=== PATIENT | female | born 1955 | race Caucasian/White ===

== ENCOUNTER 2017-07-07 08:38 | Emergency (ER) | payer BC ==
[2017-07-07 08:49] VITALS: BP 146/85
--- NOTE | 2017-07-07 10:02 | RAD ---
INDICATION: Left knee injury. TECHNIQUE: 4 views of the left knee were obtained. FINDINGS: The bones are in normal alignment. No joint effusion or acute fracture is seen. There is ossification in the medial collateral ligament consistent with prior medial collateral ligament injury. There is mild osteoarthritic change present. IMPRESSION: 1. NO EVIDENCE FOR ACUTE FRACTURE. 2. OSSIFICATION IN THE MEDIAL COLLATERAL LIGAMENT CONSISTENT WITH CHRONIC MEDIAL COLLATERAL LIGAMENT INJURY. 3. MILD OSTEOARTHRITIC CHANGE.
--- NOTE | 2017-07-07 10:49 | UC ---
Knee Pain HPI - HPI Summary HPI Summary: STEPPING OFF STAIR YESTERDAY. TWISTED LEFT KNEE. PAIN AND INSTABILITY WITH WEIGHT BEARING. HISTORY OF LEFT KNEE ARTHROSCOPY 12 YEARS AGO - History of Current Complaint Chief Complaint: UCLowerExtremity Stated Complaint: KNEE INJURY Time Seen by Provider: 07/07/17 08:56 Hx Obtained From: Patient ?: Yes Onset/Duration: Sudden Onset, Lasting Days, Still Present Severity Initially: Moderate Severity Currently: Moderate Pain Intensity: 0 Pain Scale Used: 0-10 Numeric Aggravating Factor(s): Movement, Weight Bearing, Prolonged Standing, Stairs Alleviating Factor(s): Rest, Position Associated Signs And Symptoms: Positive: Swelling Able to Bear Weight: No - Risk Factors Septic Arthritis Risk Factor: Negative Gout Risk Factor: Negative - Allergies/Home Medications Allergies/Adverse Reactions: Allergies Allergy/AdvReac Type Severity Reaction Status Date / Time Penicillins Allergy Severe Hives Verified 07/07/17 08:43 Home Medications: Home Medications Atorvastatin* [Lipitor*] 20 mg PO 2100 07/07/17 [History Confirmed 07/07/17] PMH/Surg Hx/FS Hx/Imm Hx Previously Healthy: Yes - Surgical History Surgical History: Yes Surgery Procedure, Year, and Place: appendics, right ovary and tube, ureter recontruction right - Family History Known Family History: Positive: Other - ARTHRITIS - Social History Occupation: Employed Full-time Lives: With Family Alcohol Use: None Substance Use Type: None Smoking Status (MU): Light Every Day Tobacco Smoker Review of Systems Constitutional: Negative Skin: Negative Eyes: Negative ENT: Negative Respiratory: Negative Cardiovascular: Negative Gastrointestinal: Negative Genitourinary: Negative Motor: Negative Neurovascular: Negative Musculoskeletal: Arthralgia - LEFT KNEE, Myalgia Neurological: Negative Psychological: Negative All Other Systems Reviewed And Are Negative: Yes Physical Exam Triage Information Reviewed: Yes Appearance: Well-Appearing, No Pain Distress, Well-Nourished Vital Signs: Initial Vital Signs Temp 98 F 07/07/17 08:45 Pulse 80 07/07/17 08:45 Resp 16 07/07/17 08:45 BP 146/85 07/07/17 08:45 Pulse Ox 100 07/07/17 08:45 Vital Signs Reviewed: Yes Eye Exam: Normal ENT Exam: Normal ENT: Positive: Normal ENT inspection, TMs normal Dental Exam: Normal Neck exam: Normal Respiratory Exam: Normal Respiratory: Positive: Chest non-tender, Lungs clear, Normal breath sounds, No respiratory distress, No accessory muscle use Cardiovascular Exam: Normal Cardiovascular: Positive: RRR, No Murmur, Pulses Normal, Brisk Capillary Refill Abdominal Exam: Normal Abdomen Description: Positive: Nontender, No Organomegaly Musculoskeletal: Positive: Strength Limited @ - LEFT KNEE, ROM Limited @ - LEFT KNEE, Edema @ - LEFT KNEE Neurological Exam: Normal Psychological Exam: Normal Skin Exam: Normal Knee Pain Course/Dx - Differential Dx/Diagnosis Differential Diagnosis/HQI/PQRI: Internal Derangement Of Knee, Sprain, Strain Provider Diagnoses: LEFT KNEE ARTHRITIS, OSSIFICATION OF MEDIAL COLLATERAL LIGAMENT, KNEE SPRAIN Discharge - Discharge Plan Condition: Stable Disposition: HOME Patient Education Materials: Knee Sprain (ED), Arthritis (ED) Referrals: Bossman Albarado MD [Medical Doctor] - Gary Mehta MD [Primary Care Provider] - Additional Instructions: PHYSICAL THERAPY REFERRAL: You have been prescribed physical therapy. Treatments may include stretching, exercise, application of heat or cold, and other modalities. After an injury, PT can reduce swelling and pain. In recovery, PT is used to restore mobility and strength. Your specific treatment goals are: ___x__ Reduction of Swelling (EGS, US, ice as needed) __x___ Pain Reduction (EGS, US, ice as needed) TENS Pack Fitting and Instruction Wound Hydrotherapy __x___ Preservation of Mobility __x__ Episcopalian of Mobility ___x_ Strength Episcopalian __x___ Work or Sports Hardening This instruction sheet also serves as your PHYSICAL THERAPY REFERRAL! Please take it with you to the therapist, so he/she will be aware of your diagnosis and treatment plan. You may see the physical therapist of your choice for these treatments, but may wish to check with your insurance to be sure the provider you select is covered. It's important to see the doctor to whom you have been referred for follow up.
== END 2017-07-07 10:33 | disposition home or self-care (01) ==
LOC: UCEAST 08:38
DX: S43.402A Unspecified sprain of left shoulder joint, initial encounter (principal); M17.12 Unilateral primary osteoarthritis, left knee; M61.012 Myositis ossificans traumatica, left shoulder; X58.XXXA Exposure to other specified factors, initial encounter
CPT/HCPCS: 99213; G0463

== ENCOUNTER 2017-12-08 09:12 | Emergency (ER) | payer BC ==
[2017-12-08 09:48] VITALS: BP 130/80
--- NOTE | 2017-12-08 10:21 | UC ---
Skin Complaint HPI - HPI Summary HPI Summary: Patient presents with complaints of rash that began 3 days ago, it started on her sacrum, she then developed circular clusters on the right side of her hip, then in her groin, and lateral thigh, and lateral knee. She also reports pain, but states she can control with OTC pain medication. She states the rash begins with blisters, and then some have opened, some are drying up , some are red and raised. She states she did have chicken pox as child. And also noted she had an infected abscess tooth prior to development of the rash. She denies fever, chills, cough, chest congestion, nausea, vomiting or diarrhea. - History of Current Complaint Chief Complaint: UCSkin Time Seen by Provider: 12/08/17 10:04 Stated Complaint: RASH Hx Obtained From: Patient Onset/Duration: Gradual Onset, Lasting Days Skin Exposure Onset/Duration: Days Ago Onset Severity: Mild Current Severity: Moderate Pain Intensity: 4 Location: Discrete, Other - sacrum, right hip, thigh, groin, knee. Character: Redness, Raised, Painful Aggravating Factor(s): Touch Alleviating Factor(s): OTC Meds Associated Signs & Symptoms: Positive: Negative - Allergy/Home Medications Allergies/Adverse Reactions: Allergies Allergy/AdvReac Type Severity Reaction Status Date / Time MS Penicillins [Penicillins] Allergy Severe Hives Verified 12/08/17 09:44 Review of Systems Constitutional: Fatigue Skin: Rash Eyes: Negative ENT: Negative Respiratory: Negative Cardiovascular: Negative Gastrointestinal: Negative Genitourinary: Negative Motor: Negative Psychological: Negative Is Patient Immunocompromised?: No All Other Systems Reviewed And Are Negative: Yes PMH/Surg Hx/FS Hx/Imm Hx Previously Healthy: Yes Endocrine History: Dyslipidemia Cardiovascular History: Hypertension - Surgical History Surgical History: Yes Surgery Procedure, Year, and Place: appendix, right ovary and tube, ureter recontruction right, LEFT KNEE ARTHROSCOPY 20 + YEARS AGO ; - Family History Known Family History: Positive: Cardiac Disease, Hypertension, Other - ARTHRITIS - Social History Occupation: Retired Lives: Alone Alcohol Use: None Substance Use Type: None Smoking Status (MU): Light Every Day Tobacco Smoker Physical Exam Triage Information Reviewed: Yes Appearance: Well-Appearing Vital Signs: Initial Vital Signs Temp 98 F 12/08/17 09:45 Pulse 90 12/08/17 09:45 Resp 16 12/08/17 09:45 BP 130/80 12/08/17 09:45 Pulse Ox 100 12/08/17 09:45 Eye Exam: Normal ENT Exam: Normal Neck exam: Normal Neck: Positive: 1 Respiratory Exam: Normal Cardiovascular Exam: Normal Neurological Exam: Normal Skin Exam: Normal, Other - herpetic rash noted of dermatone L4, with circular areas starting at the sacrum, right side of thigh, groin, land lateral knee area. The rash presents in clusters, with vesicle at various stages of healing. No skin infection noted. Course/Dx - Course Course Of Treatment: Patient presents with outbreak of shinges with normal vital signs, afebile and non-toxic appearance. She was treated with acyclovir 200 mg by mouth four times daily, and topical acyclovir to affected areas five time daily. She wa asked to follow up with her PCP in 48 hours and she verbalized understanding of and in agreement with the disacharge plan. - Differential Diagnoses - Skin Complaint Differential Diagnoses: Other - shingels - Diagnoses Provider Diagnoses: shingles Discharge - Discharge Plan Condition: Stable Disposition: HOME Prescriptions: Acyclovir OINT 5%(NF) [Zovirax Oint 5%(NF)] 1 applic TOPICAL .SIX TIMES A DAY # 1 oint Acyclovir* [Zovirax 200 MG CAP*] 200 mg PO QID #28 cap Patient Education Materials: Shingles (ED) Referrals: Gary Mehta MD [Primary Care Provider] - Additional Instructions: Please make an appointment with your PCP within 48 hours for re-evaluation. Images Front/Back of Body, Lg ([place]): 1 - sacrum cluster 2 - right lateral thigh 3 - right lateral knee 4 - right thigh linear vesicles
== END 2017-12-08 10:34 | disposition home or self-care (01) ==
LOC: UCEAST 09:12
DX: B02.9 Zoster without complications (principal); Z88.0 Allergy status to penicillin; F17.200 Nicotine dependence, unspecified, uncomplicated
CPT/HCPCS: 99212; G0463

== ENCOUNTER 2019-06-30 21:26 | Inpatient (IN) | payer BC ==
[2019-06-30] MEDS ORDERED: Morphine 4 MG/ML VIAL (1 ml) 4 MG/ML VIAL IV ONE (22:10)
[2019-06-30] MEDS ORDERED: NS 0.9% 1000 ML** 1,000 ML IV ONE (22:10)
[2019-06-30] MEDS ORDERED: Ondansetron INJ* 2 MG/ML VIAL IV ONE (22:11)
--- NOTE | 2019-06-30 22:12 | ED ---
Abdominal Pain/Female - HPI Summary HPI Summary: This pt is a 63 Y/O F presenting to [facility] accompanied by her with a CC of RUQ and LLQ abdominal pain that has been intermittent since 22906/30/19 and is currently rated an 8/10 in severity. She states that she has vomited twice today due to nausea and has been unable to eat today. She denies a fever, CP, SOB, diarrhea, and a headache. She stated that she has no aggravating or alleviating factors. She has a PMHx of an appendectomy and HTN. - History of Current Complaint Chief Complaint: EDAbdPain Stated Complaint: ABD PAIN PER PT Time Seen by Provider: 06/30/19 21:59 Hx Obtained From: Patient Onset/Duration: Sudden Onset - 22906/30/19, Lasting Hours - 16, Still Present Timing: Intermittent Episode Lasting Severity Initially: Severe Severity Currently: Severe Pain Intensity: 8 Pain Scale Used: 0-10 Numeric Location: Discrete At: RUQ, Discrete At: LLQ Radiates: No Aggravating Factor(s): Nothing Alleviating Factor(s): Nothing Associated Signs and Symptoms: Positive: Negative - SOB, headache., Decreased Appetite, Nausea, Vomiting. Negative: Fever, Chest Pain, Diarrhea Allergies/Adverse Reactions: Allergies Allergy/AdvReac Type Severity Reaction Status Date / Time Penicillins Allergy Severe Hives Verified 06/30/19 20:56 PMH/Surg Hx/FS Hx/Imm Hx Previously Healthy: Yes Endocrine/Hematology History: Denies: Hx Diabetes Cardiovascular History: Reports: Hx Hypertension - med Denies: Hx Congestive Heart Failure, Hx Hypercholesterolemia, Hx Pacemaker/ ICD Respiratory History: Denies: Hx Asthma GI History: Denies: Other GI Disorders History: Reports: Other Problems/Disorders - right ureter reconstruction Denies: Hx Renal Disease Sensory History: Denies: Hx Hearing Aid Psychiatric History: Denies: Hx Panic Disorder - Cancer History Cancer Type, Location and Year: cholesterol Hx Chemotherapy: No Hx Radiation Therapy: No - Surgical History Surgery Procedure, Year, and Place: appendix, right ovary and tube, ureter recontruction right, LEFT KNEE ARTHROSCOPY 20 + YEARS AGO ; Infectious Disease History: No Infectious Disease History: Denies: Hx Clostridium Difficile, Hx Hepatitis, Hx Human Immunodeficiency Virus (HIV), Hx of Known/Suspected MRSA, Hx Shingles, Hx Tuberculosis, Hx Known/ Suspected VRE, Hx Known/Suspected VRSA, History Other Infectious Disease, Traveled Outside the [place] in Last 30 Days - Family History Known Family History: Positive: Cardiac Disease, Hypertension, Other - ARTHRITIS - Social History Alcohol Use: Occasionally Substance Use Type: Reports: None Smoking Status (MU): Light Every Day Tobacco Smoker Review of Systems Negative: Fever Negative: Chest Pain Negative: Shortness Of Breath Positive: Abdominal Pain - RUQ and LLQ, Vomiting, Nausea. Negative: Diarrhea Negative: Headache All Other Systems Reviewed And Are Negative: Yes Physical Exam - Summary Physical Exam Summary: VITAL SIGNS: Reviewed. GENERAL: Patient is a well-developed and nourished female who is lying comfortable in the stretcher. Patient is not in any acute respiratory distress. HEAD AND FACE: No signs of trauma. No ecchymosis, hematomas or skull depressions. No sinus tenderness. EYES: PERRLA, EOMI x 2, No injected conjunctiva, no nystagmus. EARS: Hearing grossly intact. Ear canals and tympanic membranes are within normal limits. MOUTH: Oropharynx within normal limits. NECK: Supple, trachea is midline, no adenopathy, no JVD, no carotid bruit, no c- spine tenderness, neck with full ROM CHEST: Symmetric, no tenderness at palpation LUNGS: Clear to auscultation bilaterally. No wheezing or crackles. CVS: Regular rate and rhythm, S1 and S2 present, no murmurs or gallops appreciated. ABDOMEN: Soft, RUQ and LLQ tenderness. No signs of distention. No rebound no guarding, and no masses palpated. Bowel sounds are normal. EXTREMITIES: FROM in all major joints, no edema, no cyanosis or clubbing. NEURO: Alert and oriented x 3. No acute neurological deficits. Speech is normal and follows commands. SKIN: Dry and warm Triage Information Reviewed: Yes Vital Signs On Initial Exam: Initial Vitals Temp Pulse Resp BP Pulse Ox 98.4 F 85 18 155/100 96 06/30/19 21:30 06/30/19 21:30 06/30/19 21:30 06/30/19 21:30 06/30/19 21:30 Vital Signs Reviewed: Yes Diagnostics - Vital Signs Vital Signs Temp Pulse Resp BP Pulse Ox 06/30/19 21:30 98.4 F 85 18 155/100 96 - Laboratory Result Diagrams: 06/30/19 22:16 06/30/19 22:16 Lab Statement: Any lab studies that have been ordered have been reviewed, and results considered in the medical decision making process. - CT CT A/P CT Interpretation Completed By: Radiologist Summary of CT Findings: Nondistention versus mild thickening of the sigmoid colon with few scattered. colonic diverticula. Abrupt change in caliber of the colon at the junction of. the descending colon with the sigmoid colon with moderate dilatation and stool. retention of the ascending colon, transverse colon, and descending colon. Findings are concerning for lesion at the junction of the sigmoid colon and. descending colon, causing partial colonic obstruction with moderate stool. retention further evaluation with colonoscopy is recommended. Superimposed mild. sigmoid colitis. Small bowel is unremarkable. ED Physician has reviewed this report. - Ultrasound [facility] US Ultrasound Interpretation Completed By: Radiologist Summary of Ultrasound Findings: No gallstones. Gallbladder sludge and polyps. Nonobstructing stone in the right kidney. ED physician has reviewed this report. Re-Evaluation - Re-Evaluation First Eval Re-Evaluation Time: 00:56 Change: Unchanged Comment: Pt stated that her colonoscopy that was conducted 3 years ago was negative. She is agreeable to being admitted to [facility]. Abdominal Pain Fem Course/Dx - Course Course Of Treatment: This pt is a 63 Y/O F presenting to [facility] accompanied by her with a CC of RUQ and LLQ abdominal pain that has been intermittent since 0230 06/30/19 and is currently rated an 8/10 in severity. She has a PMHx of an appendectomy and HTN. Her PE found that she has RUQ and LLQ tenderness. She was given morphine and zofran during her ED course for pain and nausea. She was also given IV contrast Visipaque. She has abnormalities in the following labratory results: RBC 5.35, Absolute neuts 8.8, APTT 39.0, Glucose 155, C- Reactive Protein 14.93. Her Gallbladder US showed the following results: No gallstones. Gallbladder sludge and polyps. Nonobstructing stone in the right kidney. Her CT A/P found the following: Nondistention versus mild thickening of the sigmoid colon with few scattered. colonic diverticula. Abrupt change in caliber of the colon at the junction of. the descending colon with the sigmoid colon with moderate dilatation and stool. retention of the ascending colon, transverse colon, and descending colon. Findings are concerning for lesion at the junction of the sigmoid colon and. descending colon, causing partial colonic obstruction with moderate stool. retention further evaluation with colonoscopy is recommended. Superimposed mild. sigmoid colitis. Small bowel is unremarkable. She stated that her colonoscopy that was conducted [address] Plummer, Gastroenterology, was consulted and recommended to admit the pt at 0034 to [facility] for further investigations with a Dx of a colon obstruction, colonic mass, and diverticulitis. Dr. Chacon, Hospitalist, was consulted at 0119 and agreed to admit tje pt for further investigation with the above Dx. - Diagnoses Provider Diagnoses: Colon obstruction, Diverticulitis, Colonic mass Discharge ED - Sign-Out/Discharge Documenting (check all that apply): Patient Departure - admitted Patient Received Moderate/Deep Sedation with Procedure: No - Discharge Plan Condition: Stable Disposition: ADMITTED TO [facility] Referrals: Gary Mehta MD [Primary Care Provider] - - Attestation Statements Document Initiated by Scribe: Yes Documenting Scribe: Roque Thayer Provider For Whom Scribe is Documenting (Include Credential): Sharon Harding MD Scribe Attestation: Roque Arnold, scribed for Sharon Harding MD on 07/01/19 at 0119. Status of Scribe Document: Ready Consult Consult: Dr. Plummer, Gastroenterology, was consulted and recommended to admit the pt at 0034 to [facility] for further investigations with a Dx of a colon obstruction, colonic mass, and diverticulitis. Dr. Chacon, Hospitalist, was consulted at 0119 and agreed to admit tje pt for further investigation with the above Dx.
[2019-06-30 22:23] LABS: ABS Lymphocytes 1.1 10^3/ul (1.0-4.8); ABS Monocytes 0.4 10^3/ul (0-0.8); ABS Neutrophils 8.8 10^3/ul (1.5-7.7); Eosinophil % 0.2 %; Hematocrit 43 % (35-47); Hemoglobin 14.4 g/dL (12.0-16.0); Lymphocyte % 10.5 %; Mean Corpuscular HGB Conc 34 g/dL (31-36); Mean Corpuscular Hemoglobin 27 pg (27-31); Mean Corpuscular Volume 80 fL (80-97); Mean Platelet Volume 7.8 fL (7.4-10.4); Platelet Count 239 10^3/uL (150-450); Red Blood Count 5.35 10^6 /uL (3.70-4.87); Red Cell Distribution Width 15 % (10-15); White Blood Count 10.4 10^3/uL (3.5-10.8)
[2019-06-30 22:40] LABS: Albumin 4.4 g/dL (3.2-5.2); Albumin/Globulin Ratio 1.6 (1-3); BUN/Creatinine Ratio 17.9 (8-20); C Reactive Protein 14.93 mg/L (<8.01); Calcium 10.1 mg/dL (8.6-10.3); EGFR African American 90.3 (>60); EGFR Non-African American 74.6 (>60); Globulin 2.8 g/dL (2-4); Magnesium 1.9 mg/dL (1.9-2.7); Potassium 3.6 mmol/L (3.5-5.0); Total Bilirubin 0.4 mg/dL (0.2-1.0); Total Protein 7.2 g/dL (6.4-8.9)
[2019-06-30] MEDS ORDERED: Iodixanol* (CONTRAST) 320 MG/ML 100 ML SDV IV ONE (22:56)
[2019-07-01 00:20] LABS: Urine Appearance Clear; Urine Bilirubin Negative (Negative); Urine Blood Negative (Negative); Urine Color Straw; Urine Glucose Negative (Negative); Urine Ketones Negative (Negative); Urine Nitrite Negative (Negative); Urine Protein Negative (Negative); Urine Specific Gravity 1.023 (1.010-1.030); Urine Urobilinogen Negative (Negative)
[2019-07-01] MEDS ORDERED: Levofloxacin 500 MG IVPREMIX(* 500 MG/100 ML BAG IVPB ONE (01:19)
[2019-07-01] MEDS ORDERED: metroNIDAZOLE IV 500 MG/100ML* 500 MG/100 ML BAG IVPB ONE (01:20)
[2019-07-01] MEDS ORDERED: NS 0.9% 1000 ML** 1,000 ML IV SCH (02:30)
[2019-07-01] MEDS ORDERED: Calcium Carbonate CHEW TAB* 500 MG (TUMS) PO PRN (02:30)
[2019-07-01] MEDS ORDERED: Ondansetron INJ* 2 MG/ML VIAL IV PRN (02:31)
[2019-07-01] MEDS ORDERED: Acetaminophen TAB* 325 MG PO PRN (02:31)
[2019-07-01] MEDS ORDERED: Morphine 4 MG/ML VIAL (1 ml) 4 MG/ML VIAL IV PRN (02:31)
[2019-07-01] MEDS ORDERED: Nicotine Lozenge* mini 4 MG LOZNG.MINI MT PRN (02:40)
[2019-07-01] MEDS: Enoxaparin(*) 40 MG/0.4 ML SYR SUBCUT SCH (03:43)
--- NOTE | 2019-07-01 06:55 | HP ---
HISTORY AND PHYSICAL: DATE OF ADMISSION: 07/01/19 PRIMARY CARE PROVIDER: Gary Mehta MD SUPERVISOR SEWER MAINTENANCE: Liban Kurtz, the patient's . CODE STATUS: Full. CHIEF COMPLAINT: Abdominal pain. REASON FOR ADMISSION: Colitis and concern for mass in colon. SOURCE OF INFORMATION: HPI is obtained from review of charts and interview of patient, who is an nyla quate historian. HISTORY OF PRESENT ILLNESS: This is a 63-year-old female with past medical history of hyperlipidemia , hypertension, and tobacco use, who presents with abdominal pain, right upper quadrant, left lower q uadrant for approximately 1 day. The patient reports that she had acute pain that woke her from slee p, exactly 24 hours ago yesterday morning. She thought it might resolve over the course of the day, but in fact it got worse. It is a dull, achy pain that is colicky in nature and later this afternoon , became associated with nausea and vomiting twice. She does think that food makes the pain worse, a lthough recently there has been no other relieving factors. She denies fevers or chills and she was otherwise in her normal state of health prior to this acute onset of pain and denies any significant recent weight loss or subacute symptoms of fatigue, malaise, or fevers or chills. EMERGENCY ROOM COURSE: In the ER, temp was 98.4, pulse was 85, respiratory rate is 18, and blood pre ssure is 155/100, 96% on room air. Labs show white blood cell count 10.4, no anemia. Normal BMP and LFTs. Imaging was done including a gallbladder ultrasound, which showed no gallstones, some sludge and an incidental nonobstructing right renal nephrolithiasis. A CT abdomen and pelvis was done, whic h showed thickening of the sigmoid colon and a change in the caliber of the colon at the junction of descending colon with moderate dilatation and stool retention, also with surrounding colitis at the s igmoid and descending colon junction. Radiologists noted that a colonoscopy was recommended to rule out a mass or other concerning lesions and at this abrupt change in caliber. In the emergency room, she received levofloxacin, metronidazole, Zofran, and [address] Plummer of the GI servi ce is contacted who reported that the patient should be admitted for sigmoidoscopy and the patient ag lupillo to admission and the hospitalist team was asked to facilitate this. PAST MEDICAL HISTORY: 1. Hyperlipidemia. 2. Hypertension. 3. Tobacco use. Of note, the patient did have a recent colonoscopy 3 years ago who reports that was unremarkable. PAST SURGICAL HISTORY: 1. Status post appendectomy. 2. Status post right oophorectomy. 3. Status post ureter surgery. 4. Status post left knee arthroscopy. MEDICATIONS: 1. Amlodipine 2 mg p.o. daily. 2. Atorvastatin 20 mg p.o. daily. 3. Calcium carbonate 500 mg p.o. b.i.d. 4. Multivitamin 1 tab p.o. daily. ALLERGIES: To PENICILLIN. FAMILY HISTORY: Mother with heart disease and hypertension. SOCIAL HISTORY: She lives with her . Tobacco use, quarter pack per day, 10- pack year histor y. Alcohol: Denies. Illicit: Denies. REVIEW OF SYSTEMS: Constitutional: Negative for fevers, chills, malaise. HEENT: Negative for heada ches, vision changes, sore throat. Cardiovascular: Negative for chest pain, palpitations. Respirat ory: Negative for shortness of breath or cough. GI: Positive for nausea, vomiting, abdominal pain. Negative for diarrhea or constipation. : Negative for dysuria, hematuria. Musculoskeletal: Neg ative for myalgias, arthralgias. Skin: Negative for rashes or lesions. Neurologic: Negative for fo tran weakness or numbness. Psychiatric: Negative for depression, anxiety. Endocrine: Negative for polyuria, polydipsia. Heme: Negative for easy bruising, bleeding, or lymphadenopathy. Allergy: Ne gative for frequent infections. PHYSICAL EXAMINATION GENERAL APPEARANCE: Well-appearing woman, in no acute distress, pleasant and cooperative with exam. VITAL SIGNS: At the time of exam, blood pressure is 127/80, heart rate is 93, oxygen is 95% on room air, afebrile. HEENT: Extraocular muscles are intact. Pupils are equal and reactive. Sclerae anicteric. Orophary nx is clear without lesions. Moist mucous membranes. NECK: Supple without supraclavicular, cervical lymphadenopathy. RESPIRATORY: Lungs are clear to auscultation. CARDIAC: Regular rate and rhythm. No murmurs, rubs, or gallops. ABDOMEN: Belly is soft, nondistended, tender to palpation, left lower quadrant. No rebound. No guar ding. No organomegaly. EXTREMITIES: 2+ pulses bilaterally, warm and well perfused without edema. NEURO: Cranial nerves II through XII are intact. No focal neurologic deficits. A and O x4. Lenard ative with exam. SKIN: Without rashes or lesions. DIAGNOSTIC STUDIES/LAB DATA: White blood cell count 10.4, hemoglobin 14.4, hematocrit 43, platelets 239. INR 1. Chemistries: Sodium 136, potassium 3.6, chloride 103, anion gap 9, BUN 14, creatinine 0.7, glucose 155. CRP is 14. AST 16, ALT 17, alk phos 74 and total bili is 0.4. Lipase 18. UA is unremarkable. Imaging includes, abdomen and pelvis CT, which showed questionable lesion at junction of the sigmoid and descending colon with associated mild colitis and a gallbladder ultrasound, which showed sludge, no obstructing stones and an incidental right nonobstructing nephrolithiasis. Imaging and labs revie wed by myself. ASSESSMENT AND PLAN: A 63-year-old female with past medical history of hypertension, hyperlipidemia, and tobacco use who presents with abdominal pain, right upper quadrant, left lower quadrant, ongoing for approximately 1 day without lab abnormalities, was found to have sigmoid colitis and possible in tracolonic lesion at the junction of the sigmoid and descending colon. She should be admitted for fu rther investigation of this lesion to determine if there is underlying oncologic process or other int ramural disease. 1. Colitis. Continue Cipro and metronidazole for 5 to 7 days given exam findings. 2. Possible mass. The patient is n.p.o. GI is consulted. We will need flexible sigmoidoscopy and it can be arranged on 07/01/19. 3. Hypertension. Continue home meds. 4. Hyperlipidemia. Continue home statin. 5. Tobacco use. Offer nicotine replacement therapy p.r.n. for cravings. 6. DVT prophylaxis. The patient is moderate risk. We will start low molecular weight heparin. 7. FEN. N.p.o. 8. Disposition. Stable for admission to [address] [place] [address]. 9. Code status is full. TIME SPENT: Forty five minutes were spent on the planning of this admission with over half of that s pent directly at the bedside with the patient providing direct patient care. Plan of care is discussed with the patient and who agrees with admission, have no further que rebecca. [id number]/[facility] #: [id number]
[2019-07-01] MEDS ORDERED: PEG 3000 GI LAVAGE* 1 GALLON PO ONE ×2 (08:45→13:00)
[2019-07-01] MEDS: Ciprofloxacin 400MG IVPREMIX(* 400 MG/200 ML BAG IVPB SCH ×2 (09:00→19:59)
[2019-07-01] MEDS: Multivitamins/Minerals TAB PO SCH (09:45)
[2019-07-01] MEDS: amLODIPine TAB* 5 MG PO SCH (09:45)
[2019-07-01] MEDS: metroNIDAZOLE IV 500 MG/100ML* 500 MG/100 ML BAG IVPB SCH ×2 (11:08→22:12)
--- NOTE | 2019-07-01 13:22 | PN ---
Subjective Date of Service: 07/01/19 Interval History: No overnight events. Pt felt abdominal pain improved this morning, no nausea and vomiting.Last meal was dinner the day before Frequent bowel movement this morning after taking bowel prep liquid. Previous colonoscopy: no abnormal findings, last one 3 years ago Objective Active Medications: Acetaminophen (Tylenol Tab*) 650 mg PO Q6H PRN PRN Reason: PAIN - MILD Amlodipine Besylate (Norvasc Tab*) 10 mg PO DAILY [facility] Last Admin: 07/01/19 09:45 Dose: Not Given Atorvastatin Calcium (Lipitor*) 20 mg PO 2100 [facility] Calcium Carbonate (Tums*) 500 mg PO BID PRN PRN Reason: INDIGESTION Enoxaparin Sodium (Lovenox(*)) 40 mg SUBCUT Q24H [facility] Last Admin: 07/01/19 03:43 Dose: 40 mg Ciprofloxacin/Dextrose (Cipro 400 Mg Ivpremix(*)) 400 mg in 200 mls @ 200 mls/ hr IVPB Q12H [facility]; Protocol Last Admin: 07/01/19 09:00 Dose: 200 mls/hr Metronidazole/Sodium Chloride (Flagyl 500 Mg Ivpb*) 500 mg in 100 mls @ 100 mls /hr IVPB BID [facility] Last Admin: 07/01/19 11:08 Dose: 100 mls/hr Morphine Sulfate (Morphine 4 Mg/Ml Vial (1 Ml)) 4 mg IV Q6H PRN PRN Reason: PAIN - SEVERE Multivitamins/Minerals (Theragran/Minerals Tab*) 1 tab PO DAILY [facility] Last Admin: 07/01/19 09:45 Dose: Not Given Nicotine Polacrilex (Nicotine Lozenge Mini) 4 mg MT Q2H PRN PRN Reason: CRAVING Ondansetron HCl (Zofran Inj*) 4 mg IV Q6H PRN PRN Reason: NAUSEA Vital Signs - 8 hr 07/01/19 07/01/19 07:12 11:37 Temperature 98.4 F Pulse Rate 78 60 Respiratory 12 Rate Blood Pressure 109/43 (mmHg) O2 Sat by Pulse 93 Oximetry Oxygen Devices in Use Now: None Exam: General - NAD, sitting up in bed, well groomed and in nightgown Eyes - PERRLA, EOM intact HEENT- no abnormality Lymph Nodes - No lymphadenopathy Cardiovascular - RRR no m/r/g, no JVD, no carotid bruits Lungs - Clear to auscltation, no use of acessory muscles, no crackles or wheezes. Skin - No rashes, skin warm and dry, no erythematous areas Abdomen - Normal bowel sounds, abdomen soft, tenderness on LLQ and RLQ Extremeties - No edema, cyanosis or clubbing Musculo Skeletal - 5/5 strength, normal range of motion, no swollen or erythematousjoints. Neurological Alert and oriented x 3, CN 2-12 grossly intact. Result Diagrams: 07/02/19 05:46 07/02/19 05:46 Assess/Plan/Problems-Billing Assessment: 63 y/o female with history only HTN, HLD, admitted for lower abdominal pain, found to have sigmoid diverticulitis, and intracolonic narrowing of sigmoid and descending colon juncture. Medically managed with cipro and flagyl, colonoscopy is planned to look for colon cancer. - Patient Problems (1) Abdominal pain Current Visit: Yes Status: Acute Code(s): R10.9 - UNSPECIFIED ABDOMINAL PAIN SNOMED Code(s): 63516277 Comment: Likely diverticulitis IV cipro and flagyl Colonoscopy today (2) HTN (hypertension) Current Visit: Yes Status: Acute Code(s): I10 - ESSENTIAL (PRIMARY) HYPERTENSION SNOMED Code(s): 40936938 Comment: continue home med (3) HLD (hyperlipidemia) Current Visit: Yes Status: Acute Code(s): E78.5 - HYPERLIPIDEMIA, UNSPECIFIED SNOMED Code(s): 22881854 Comment: continue home med Status and Disposition: Inpatient Medicine. Attestation Documenting Resident: Verito Thompson Supervising Physician: Js Wakefield Attending/Supervising Physician Comment: Patient having sigmoidoscopy today. Attestation: This service has been performed in part by a resident under the direction of a teaching physician.I, Js Wakefield, performed the service, or was physically present during the critical, or aponte portions of the service, furnished by the resident. I participated in the management of the patient.
[2019-07-01] MEDS ORDERED: Midazolam* 1 MG/ML 10 ML VIAL (10 MG) ONE (15:44)
[2019-07-01] MEDS ORDERED: fentaNYL* 50 MCG/ML 2 ML VIAL (100 MCG VIAL) ONE (15:44)
--- NOTE | 2019-07-01 17:13 | PN ---
Progress Note - Progress Note Date of Service: 07/01/19 Note: BRIEF GI PROCEDURE NOTE Colonoscopy to cecum. Prep not adequate for evaluating for small polyps, particularly in R colon, but I was able to see majority of mucosa. No large polyps or masses seen. A 6-8 mm polyp removed from proximal sigmoid colon with cold snare. There was a narrowing noted for ~5 cm beginning at approximately 35 cm. Likely in area of sigmoid-descending colon junction. Mucosa appears edematous diffusely and mildly erythematous in this segment. There is diverticulosis in this segment. No evidence of neoplasm. Possible that this represents a colitis, diverticulitis (although no single suspicious diverticulum seen) or benign diverticular stricture. - Advance diet as tolerated - Continue Cipro/Flagyl to complete 7-10 day course - Will schedule follow-up in clinic. Will likely plan for repeat colonoscopy in 3 months or so to reassess this segment. Edith Ta MD Gastroenterology
--- NOTE | 2019-07-01 17:23 | CONS ---
CC: Dr. Chacon; Gary Mehta MD * GASTROENTEROLOGY CONSULT REPORT: DATE OF CONSULT: 07/01/19 REASON FOR CONSULT: Abnormal CT scan. REQUESTING PROVIDER: Dr. Chacon. OUTPATIENT PROVIDER: Gary Mehta MD HISTORY OF PRESENT ILLNESS: Ms. Kurtz is a 63-year-old woman with a history of hyperlipidemia, hypertension, and tobacco use, who presents with acute abdominal pain. Ms. Kurtz was in usual state of health until 2:30 a.m. on Saturday. She woke up with diffuse severe abdominal pain. Pain was associated with nausea and vomiting twice. The first episode of vomiting was mostly dry heaving. The second episode contained a small amount of water she had just drank. No hematemesis noted. She has normal bowel movements at baseline once a day. She does not recall having a bowel movement on Saturday. She does not notice any melena or hematochezia. She has not noted any changes in stool caliber. On arrival to the ED, the patient was noted to have a white count of 10.4. Imaging with a gallbladder ultrasound demonstrated some gallbladder sludge only as well as a non-obstructing right renal nephrolithiasis. CT abdomen and pelvis demonstrated non-distention versus mild thickening of the sigmoid colon with an abrupt change in caliber at the junction of the descending and sigmoid colon with moderate dilation and stool retention proximal at this area. The patient was started on Cipro and Flagyl. She had significant improvement in her discomfort with morphine in the ED. She has remained a bit full feeling and mildly uncomfortable, although overall symptoms have been better today. She was able to tolerate a GoLYTELY prep without any significant issues. Stools have significantly lightened to a tea color. The patient underwent colonoscopy in February [address] Sal. The patient was noted to have mild sigmoid diverticulosis. No polyps. PAST MEDICAL HISTORY: 1. Hypertension 2. Hyperlipidemia. 3. Tobacco use - smokes a quarter pack per day. PAST SURGICAL HISTORY: 1. Status post appendectomy. 2. Status post right oophorectomy. 3. Status post ureter surgery. 4. Status post left knee arthroscopy. HOME MEDICATIONS: 1. Amlodipine 10 mg daily. 2. Atorvastatin 20 mg daily. 3. Calcium carbonate 500 mg twice a day. 4. Multivitamin daily. ALLERGIES: PENICILLIN. FAMILY HISTORY: No known GI or liver disease. SOCIAL HISTORY: Lives with her . Smokes a quarter pack of cigarettes per day. No significant alcohol use. No known drug use. REVIEW OF SYSTEMS: A complete review of systems negative except as above. PHYSICAL EXAM: Vital Signs: Afebrile. Heart rate in the 90's. Blood pressure has ranged from 109 systolic to 160, diastolic has been in the 60s to the 80s. Oxygen saturation 93 to 96% on room air. General: Pleasant woman, in no acute distress. Seen coming back from the bathroom at the beginning of the interview and leaving to go to the bathroom towards the end of the interview related to the colonoscopy prep. HEENT: Mucous membranes moist. Anicteric sclera. Cardiovascular: Regular rate and rhythm. Pulmonary: Breathing comfortably. Abdomen: Soft, nontender, nondistended. Extremities: No edema. Neuro: A and O x3. Skin: No jaundice. LABS: Labs reviewed. White count 10.4, hemoglobin 14.4, platelet count 239. INR 1. Creatinine normal. LFTs normal. CRP elevated to 14.9. Imaging: Gallbladder ultrasound demonstrated sludge and incidental note of right- sided nephrolithiasis. CT of the abdomen and pelvis as above demonstrates nondistended versus mildly thick sigmoid colon with an abrupt change in caliber of the colon at the junction of the sigmoid and descending colon. IMPRESSION AND RECOMMENDATION: Ms. Kurtz is a 63-year-old woman with a history of hypertension, hyperlipidemia and tobacco use, who presents with acute onset of abdominal pain, nausea/vomiting, and abnormal CT findings. The patient reports diffuse abdominal pain with associated nausea and vomiting x2. Abdominal pain has significantly improved since admission. Labs notable for an elevated CRP only. Imaging of the colon demonstrates an abrupt change in caliber at the junction of the sigmoid and descending colon. Differential includes malignant lesion at this area, although the patient did have a high quality colonoscopy a little over 3 years ago notable only for sigmoid diverticulosis. Colitis (infectious versus ischemic) as well as diverticular disease (?stricture) also reasonable to consider. - Continue n.p.o. - The patient has completed 4 L GoLYTELY prep. We will plan for flexible sigmoidoscopy versus colonoscopy if prep is adequate. Thank you very much for this consult. GI will continue to follow along. [id number]/[facility] #: [id number] [facility]
--- NOTE | 2019-07-01 18:13 | PRO ---
CC: Dr. Gary Mehta * DATE OF PROCEDURE: 07/01/19 - ROOM #419 PROCEDURE: Colonoscopy. REFERRING PROVIDER: Dr. Gary Mehta. INDICATION: The patient is admitted with acute abdominal pain x24 hours. CT abdomen and pelvis demonstrated non-distention versus mild thickening of the sigmoid colon and an abrupt change in the colon caliber at the sigmoid- descending junction raising concern for a neoplasm. The patient had a colonoscopy in 2016 that demonstrated diverticulosis only. MEDICATIONS GIVEN: Midazolam 12 mg IV, Fentanyl 100 mcg IV. DESCRIPTION OF PROCEDURE: Full disclosure of risks was reviewed with the patient as detailed on the consent form. The patient was placed in the left lateral decubitus position and monitored with continuous pulse oximetry, capnography, interval blood pressure monitoring, and direct observation. After anorectal examination was performed, the pediatric colonoscope was inserted into the rectum and slowly advanced forward to the level of the cecum. Cecum was identified by the ileocecal valve. Photodocumentation of landmarks obtained. Quality of the prep was inadequate for polyp screening as the likelihood of missing small to medium-sized or flat polyps is higher than acceptable, particularly in the right colon. Careful inspection was made as the colonoscope was withdrawn. Retroflexion was performed in the rectum. Findings and interventions are described below. FINDINGS: Anorectal exam was unremarkable. Scope was inserted into the rectum and slowly advanced forward to the level of the cecum as above. Scope was then withdrawn slowly. In the descending colon, there was an 8-mm polyp, which was removed with cold snare. This polyp was in a challenging place. In the distal descending colon, there was a narrowing appreciated. At this narrowing, which occurred between 30 to 35 cm, the colon appeared to be diffusely edematous and mildly erythematous. This likely correlates to the abnormality seen on the CAT scan. There was diverticulosis in this segment, although there was no acutely infected diverticulum appreciated. No ulcers or erosions. No mass lesion. Several small biopsy bites were taken from the edematous segment. Scope was then withdrawn throughout the remainder of the colon. Retroflexion in the rectum revealed hemorrhoids. Scope was then withdrawn from the patient. The patient tolerated the procedure well and was recovered in the GI recovery area. IMPRESSION: 1. Complete colonoscopy to the cecum. Prep not adequate for screening colonoscopy. 2. Polyp removed from descending colon. 3. Mildly narrowed segment of colon seen between 30 and 35 cm, which likely correlates with the findings on the CT scan. Mucosa in this area was diffusely edematous. There was no evidence of mass. There was diverticulosis in the segment. Possible that this represents colitis, diverticulitis (although no single suspicious diverticulum was seen) or benign diverticular stricture. 4. Internal hemorrhoids. FOLLOWUP: 1. Await pathology. 2. Advance diet as tolerated. 3. Recommend Cipro and Flagyl to complete a 7- to 10-day course. 4. Will schedule follow-up in clinic within the next few weeks. We would consider repeating colonoscopy in 3 months or so to reassess this abnormal area. Thank you very much for this consult. GI will continue to follow along peripherally. Please contact GI if acute clinical symptoms persist during this admission. [id number]/[facility] #: [id number] [facility]
[2019-07-01] MEDS ORDERED: Atorvastatin* 20 MG TAB PO SCH (21:00)
[2019-07-02] MEDS: Enoxaparin(*) 40 MG/0.4 ML SYR SUBCUT SCH (04:48)
[2019-07-02 06:20] LABS: ABS Eosinophils 0.1 10^3/ul (0-0.6); ABS Lymphocytes 1.9 10^3/ul (1.0-4.8); ABS Monocytes 0.4 10^3/ul (0-0.8); ABS Neutrophils 2.9 10^3/ul (1.5-7.7); Eosinophil % 2.6 %; Hematocrit 36 % (35-47); Hemoglobin 12.1 g/dL (12.0-16.0); Lymphocyte % 35.5 %; Mean Corpuscular HGB Conc 34 g/dL (31-36); Mean Corpuscular Hemoglobin 27 pg (27-31); Mean Corpuscular Volume 81 fL (80-97); Mean Platelet Volume 8.2 fL (7.4-10.4); Nucleated Red Blood Cells % 0.1; Platelet Count 190 10^3/uL (150-450); Red Blood Count 4.47 10^6 /uL (3.70-4.87); Red Cell Distribution Width 15 % (10-15); White Blood Count 5.4 10^3/uL (3.5-10.8)
[2019-07-02 06:37] LABS: BUN/Creatinine Ratio 9.2 (8-20); Calcium 8.6 mg/dL (8.6-10.3); EGFR Non-African American 76.9 (>60); Potassium 3.5 mmol/L (3.5-5.0)
--- NOTE | 2019-07-02 06:49 | PN ---
Subjective Date of Service: 07/02/19 Interval History: No events overnight. Patient felt pain resolved. Noted GI input: cipro+ flagyl for 7-10 days. Repeat colonoscopy in 3 months in clinic. Pt is happy wth the plan, discharge plan explained at bedside. Objective Active Medications: Acetaminophen (Tylenol Tab*) 650 mg PO Q6H PRN PRN Reason: PAIN - MILD Amlodipine Besylate (Norvasc Tab*) 10 mg PO DAILY [facility] Last Admin: 07/01/19 09:45 Dose: Not Given Atorvastatin Calcium (Lipitor*) 20 mg PO 2100 [facility] Last Admin: 07/01/19 22:07 Dose: 20 mg Calcium Carbonate (Tums*) 500 mg PO BID PRN PRN Reason: INDIGESTION Ciprofloxacin (Cipro Tab*) 500 mg PO Q12HR [facility]; Protocol Enoxaparin Sodium (Lovenox(*)) 40 mg SUBCUT Q24H [facility] Last Admin: 07/02/19 04:48 Dose: 40 mg Metronidazole (Flagyl Tab*) 500 mg PO BID [facility] Multivitamins/Minerals (Theragran/Minerals Tab*) 1 tab PO DAILY [facility] Last Admin: 07/01/19 09:45 Dose: Not Given Nicotine Polacrilex (Nicotine Lozenge Mini) 4 mg MT Q2H PRN PRN Reason: CRAVING Vital Signs - 8 hr 07/01/19 07/02/19 23:13 03:18 Temperature 97.5 F 97.7 F Pulse Rate 73 77 Respiratory 15 16 Rate Blood Pressure 127/64 121/64 (mmHg) O2 Sat by Pulse 92 96 Oximetry Oxygen Devices in Use Now: None Exam: General - NAD, sitting up in bed, well groomed and in nightgown Eyes - PERRLA, EOM intact HEENT- no abnormality Lymph Nodes - No lymphadenopathy Cardiovascular - RRR no m/r/g, no JVD, no carotid bruits Lungs - Clear to auscltation, no use of acessory muscles, no crackles or wheezes. Skin - No rashes, skin warm and dry, no erythematous areas Abdomen - Normal bowel sounds, abdomen soft and nontender Extremeties - No edema, cyanosis or clubbing Musculo Skeletal - 5/5 strength, normal range of motion, no swollen or erythematous joints. Neurological Alert and oriented x 3, CN 2-12 grossly intact. Result Diagrams: 07/02/19 05:46 07/02/19 05:46 Assess/Plan/Problems-Billing Assessment: 63 y/o female with history only HTN, HLD, admitted for lower abdominal pain, found to have sigmoid diverticulitis, and intracolonic narrowing of sigmoid and descending colon juncture. Medically managed with cipro and flagyl, colonoscopy is planned to look for colon cancer. - Patient Problems (1) Abdominal pain Current Visit: Yes Status: Acute Code(s): R10.9 - UNSPECIFIED ABDOMINAL PAIN SNOMED Code(s): 92591350 Comment: Likely diverticulitis IV cipro and flagyl Colonoscopy today (2) HTN (hypertension) Current Visit: Yes Status: Acute Code(s): I10 - ESSENTIAL (PRIMARY) HYPERTENSION SNOMED Code(s): 70339852 Comment: continue home med (3) HLD (hyperlipidemia) Current Visit: Yes Status: Acute Code(s): E78.5 - HYPERLIPIDEMIA, UNSPECIFIED SNOMED Code(s): 73969510 Comment: continue home med Status and Disposition: Inpatient Medicine.
[2019-07-02] MEDS ORDERED: metroNIDAZOLE TAB* 250 MG PO SCH (09:00)
[2019-07-02] MEDS ORDERED: Ciprofloxacin TAB* 500 MG PO SCH (09:00)
[2019-07-02] MEDS: amLODIPine TAB* 5 MG PO SCH (09:25)
[2019-07-02] MEDS: Multivitamins/Minerals TAB PO SCH (09:25)
[2019-07-02 09:53] VITALS: BP 129/65
--- NOTE | 2019-07-03 10:10 | DS ---
CC: Dr. Mehta; Dr. Ta DISCHARGE SUMMARY: DATE OF ADMISSION: 07/01/19 DATE OF DISCHARGE: 07/02/19 PRIMARY DIAGNOSIS: Diverticulitis. SECONDARY DIAGNOSES: 1. Possible infectious colitis. 2. Hypertension. 3. Hyperlipidemia. 4. Tobacco abuse. 5. History of appendectomy. 6. History of right oophorectomy. 7. History of past ureter surgery. MEDICATIONS ON DISCHARGE: 1. Amlodipine 10 mg p.o. daily. 2. Atorvastatin 20 mg p.o. q.p.m. 3. Calcium carbonate as needed. 4. Multivitamin 1 tab daily. 5. Cipro 500 mg p.o. b.i.d. for 6 days. 6. Metronidazole 500 mg p.o. b.i.d. for 6 days. HOSPITAL COURSE: This is a 63-year-old patient who was admitted through the emergency department wit h abdominal pain. Please see the history and physical for full details of this admission. The patie nt had an abdominal/pelvis CT that showed a possible lesion at the junction of the sigmoid and descen ding colon associated with mild colitis. The patient did not report any diarrhea. The patient also had a gallbladder ultrasound that showed sludge in the gallbladder, but no gallstones and no clear ch olecystitis. There was an incidental right-sided kidney stone. The patient was admitted for further workup of this possible lesion. She had a consultation with Gastroenterology, Dr. Ta. Dr. Ta performed a sigmoidoscopy on 07/01/19, which demonstrated a polyp in the descending colo n that was about 8 mm. There is a mildly narrowed segment in the colon between 30 and 35 cm which co rrelates with the CT findings. The mucosa was diffusely edematous. There was no mass or large polyps . There was diverticulosis in that segment. The impression of the busgirl was that this was colitis versus diverticulitis. The patient was recommended to continue on Cipro and Flagyl to co mplete a 7 to 10 day course and have followup at the [facility]ology [facility] subsequently. The fatmatae nt on the day of discharge was tolerating liquids and her antibiotics and ambulatory and deemed well enough to go home. Other important testings occurred in the hospital, she had a white count of 10.4 on admission that fell to 5.4 on the next day. Her electrolytes were normal. C-reactive protein was 14.9, amylase 55, lipase was 18, liver enzymes were normal. Urinalysis was negative for blood. The re was no stool specimen sent for culture because she did not have diarrhea. DISPOSITION: To home. FOLLOWUP: Followup will be with Dr. Mehta within [address] Ta within 2 weeks. ACTIVITIES: As tolerated. CONDITION: Stable. STATUS: Inpatient. [id number]/[facility] #: [id number]
== END 2019-07-02 10:15 | disposition home or self-care (01) | DRG 244 ==
LOC: ED 21:26 → MED 07-01 02:17
PROVIDERS: ADMIT Internal Medicine; ATTEND Internal Medicine
PROC: 0DBM8ZZ Excision of Descending Colon, Via Natural or Artificial Opening Endoscopic (ICD-10-PCS; principal; 2019-07-01)
DX: K57.32 Diverticulitis of large intestine without perforation or abscess without bleeding (principal); A09 Infectious gastroenteritis and colitis, unspecified; K56.609 Unspecified intestinal obstruction, unspecified as to partial versus complete obstruction; K63.5 Polyp of colon; I10 Essential (primary) hypertension; E78.5 Hyperlipidemia, unspecified; N20.0 Calculus of kidney; F17.210 Nicotine dependence, cigarettes, uncomplicated; K64.8 Other hemorrhoids; Z90.721 Acquired absence of ovaries, unilateral; Z82.49 Family history of ischemic heart disease and other diseases of the circulatory system; Z88.0 Allergy status to penicillin; Z72.89 Other problems related to lifestyle; Z82.61 Family history of arthritis
CPT/HCPCS: 36415; 74177; 76705; 80048; 80053; 81003; 82150; 83690; 83735; 85025; 85610; 85730; 86140; 88305; 99156; 99157; 99284; A9270-GY; J0744; J1650; J1956; J2250; J2270; J2405; J3010; Q9967

== ENCOUNTER 2019-11-06 14:40 | Inpatient (IN) | payer BC ==
[2019-11-06] MEDS ORDERED: Ondansetron INJ* 2 MG/ML VIAL IV ONE (15:02)
[2019-11-06] MEDS ORDERED: NS 0.9% 1000 ML** 1,000 ML IV ONE (15:02)
--- NOTE | 2019-11-06 15:04 | ED ---
Abdominal Pain/Female - HPI Summary HPI Summary: The patient is a 63 y/o F presenting to [facility] accompanied by with a chief complaint of diffuse abdominal pain onset yesterday. She endorses constipation for 5 days, nausea, and chills. She denies any fever or vomiting. Symptoms currently rated 3/10 in severity. She visited Dr. Ta from GI today, who advised her to come here to rule out SBO since she has a history in June 2019 with similar symptoms. PMHx: HLD, HTN, appendectomy, colonoscopy September 2019, ovary and tube removal. Current smoker, occasional EtOH, no substance use. Medications reviewed. Allergies noted. - History of Current Complaint Chief Complaint: EDAbdPain Stated Complaint: ABDOMINAL PAIN PER PT Time Seen by Provider: 11/06/19 14:55 Hx Obtained From: Patient Onset/Duration: Lasting Hours, Still Present Timing: Constant Severity Initially: Moderate Severity Currently: Mild Pain Intensity: 3 Pain Scale Used: 0-10 Numeric Location: Diffuse Radiates: No Character: Cramping Aggravating Factor(s): Nothing Alleviating Factor(s): Nothing Associated Signs and Symptoms: Positive: Constipation, Nausea, Other: - chills. Negative: Fever, Vomiting Allergies/Adverse Reactions: Allergies Allergy/AdvReac Type Severity Reaction Status Date / Time Penicillins Allergy Severe Hives Verified 11/06/19 15:32 Home Medications: Home Medications Omeprazole CAP (NF) [Prilosec CAP* 20 MG] 20 mg PO BID 11/06/19 [History Confirmed 11/06/19] amLODIPine TAB* [Norvasc 5 mg TAB*] 10 mg PO DAILY 11/06/19 [History Confirmed 11/06/19] PMH/Surg Hx/FS Hx/Imm Hx Endocrine/Hematology History: Denies: Hx Diabetes Cardiovascular History: Reports: Hx Hypercholesterolemia, Hx Hypertension - med Denies: Hx Congestive Heart Failure, Hx Pacemaker/ICD Respiratory History: Denies: Hx Asthma GI History: Reports: Other GI Disorders - SBO History: Reports: Other Problems/Disorders - right ureter reconstruction Denies: Hx Renal Disease Sensory History: Denies: Hx Contacts or Glasses, Hx Hearing Aid Opthamlomology History: Denies: Hx Contacts or Glasses Psychiatric History: Denies: Hx Panic Disorder - Cancer History Hx Chemotherapy: No Hx Radiation Therapy: No - Surgical History Surgical History: Yes Surgery Procedure, Year, and Place: appendix, right ovary and tube, ureter recontruction right, LEFT KNEE ARTHROSCOPY 20 + YEARS AGO ; Infectious Disease History: No Infectious Disease History: Denies: Hx Clostridium Difficile, Hx Hepatitis, Hx Human Immunodeficiency Virus (HIV), Hx of Known/Suspected MRSA, Hx Shingles, Hx Tuberculosis, Hx Known/ Suspected VRE, Hx Known/Suspected VRSA, History Other Infectious Disease, Traveled Outside the [place] in Last 30 Days - Family History Known Family History: Positive: Cardiac Disease, Hypertension, Other - ARTHRITIS - Social History Alcohol Use: Occasionally Hx Substance Use: No Substance Use Type: Reports: None Hx Tobacco Use: Yes Smoking Status (MU): Light Every Day Tobacco Smoker Review of Systems Positive: Chills. Negative: Fever Positive: Abdominal Pain - diffuse, Nausea, Other - consipation. Negative: Vomiting All Other Systems Reviewed And Are Negative: Yes Physical Exam - Summary Physical Exam Summary: Constitutional: Well-developed, Well-nourished, Alert. (-) Distressed Skin: Warm, Dry HENT: Normocephalic; Atraumatic Eyes: Conjunctiva normal Neck: Musculoskeletal ROM normal neck. (-) JVD, (-) Stridor, (-) Tracheal deviation Cardio: Rhythm regular, rate normal, Heart sounds normal; Intact distal pulses; Radial pulses are 2+ and symmetric. (-) Murmur Pulmonary/Chest wall: Effort normal. (-) Respiratory distress, (-) Wheezes, (-) Rales Abd: Soft, (+) diffuse tenderness worst in the LLQ, (-) Distension, (-) Guarding , (-) Rebound Musculoskeletal: (-) Edema Lymph: (-) Cervical adenopathy Neuro: Alert, Oriented x3 Psych: Mood and affect Normal Triage Information Reviewed: Yes Vital Signs On Initial Exam: Initial Vitals Temp Pulse Resp BP Pulse Ox 98.0 F 71 16 148/109 98 11/06/19 14:47 11/06/19 14:47 11/06/19 14:47 11/06/19 14:47 11/06/19 14:47 Vital Signs Reviewed: Yes Procedures - Sedation Patient Received Moderate/Deep Sedation with Procedure: No Diagnostics - Vital Signs Vital Signs Temp Pulse Resp BP Pulse Ox 11/06/19 14:47 98.0 F 71 16 148/109 98 - Laboratory Result Diagrams: 11/06/19 15:22 11/06/19 15:22 Lab Statement: Any lab studies that have been ordered have been reviewed, and results considered in the medical decision making process. - CT Abd/Pel CT CT Interpretation Completed By: Radiologist Summary of CT Findings: Impression: 1. Partial relatively high-grade obstruction of the colon secondary to a lesion located in the sigmoid colon. Differential diagnosis would include a malignant tumor less likely a chronic benign stricture. Recommend correlation with the patient's recent colonoscopy from September 2019. 2. Hepatic steatosis. 3. Right renal cortical scarring. Possible complex right renal cyst. Recommend a follow-up renal ultrasound for further evaluation. ED physician has reviewed this report. Re-Evaluation - Re-Evaluation First Eval Re-Evaluation Time: 17:45 Comment: We discussed results thus far and plan for treatment with admission. Abdominal Pain Fem Course/Dx - Course Course Of Treatment: Patient is here with diffuse abdominal pain and no bowel movement since Saturday. Patient has a history of diverticulitis treated here in June where she was found have a stricture in her sigmoid colon. Patient had blood work performed today which showed new-onset hyponatremia. Patient had a CT scan showed a high-grade obstruction at that same area of stricture. Patient states this was biopsied and was not cancerous in nature. Patient did have a diarrhea-like bowel movement in the ED. Given patient's high-grade stenosis, hyponatremia, and abdominal pain, patient was admitted to the hospitalist. - Diagnoses Provider Diagnoses: Bowel obstruction, LLQ abdominal pain, Hyponatremia - Provider Notifications Discussed Care Of Patient With: Patricia Spencer - hospitalist Time Discussed With Above Provider: 17:50 Instructed by Provider To: Other - I discused the patient's case with Dr. Spencer , who accepts the patient for admission. Discharge ED - Sign-Out/Discharge Documenting (check all that apply): Patient Departure - Patient accepted for admission by Dr. Spencer. - Discharge Plan Condition: Stable Disposition: ADMITTED TO [facility] Referrals: Gary Mehta MD [Primary Care Provider] - - Billing Disposition and Condition Condition: STABLE Disposition: Admitted to [facility] - Attestation Statements Document Initiated by Scribe: Yes Documenting Scribe: Concepción Salazar Provider For Whom Scribe is Documenting (Include Credential): Dr. Blaise Piedra MD Scribe Attestation: I, Concepción Salazar, scribed for Dr. Blaise Piedra MD on 11/06/19 at 1833. Scribe Documentation Reviewed: Yes Provider Attestation: The documentation as recorded by the merariibe, Concepción Salazar accurately reflects the service I personally performed and the decisions made by me, Dr. Blaise Piedra MD Status of Scribe Document: Viewed
--- OUTSIDE RECORDS SUMMARY | 2019-11-06 15:11 | XMS REPORT | Summary of Care ---
:1955 Author Organization [facility] Address [address] [address] Care Team Providers Name Role Phone Gary Mehta MD Primary Care Provider Reason for Visit Reason Comments Post-op Follow-up S/P right RCR 08-05-19. Patient states that her right shoulder is doing good. PT is going good as well. Encounter Details Date Type Department Care Team Description 10/30/2019 Office Visit [facility] - Marli Montiel, S/P rotator cuff [place] RPA-C repair (Primary Dx) [address] [facility] [address] [place], [place] [id number] [place] [address] [phone] Allergies Active Allergy Reactions Severity Noted Date Comments Penicillins Hives 07/10/2017 documented as of this encounter (statuses as of 10/30/2019) Medications Medication Sig Dispensed Refills Start Date End Date Status Multiple Take by mouth. 0 Active Vitamins-Minerals (DAILY MULTIVITAMIN PO) atorvastatin (LIPITOR) Take by mouth 0 Active 20 MG Oral Tab DAILY. amLodipine (NORVASC) 10 Take 10 mg by 0 Active MG Oral Tab mouth DAILY. documented as of this encounter (statuses as of 10/30/2019) Active Problems Problem Noted Date S/P rotator cuff repair 08/18/2019 Traumatic complete tear of right rotator cuff 06/04/2019 Overview: Added automatically from request for surgery [id number] S/P arthroscopic knee surgery 09/30/2017 Current tear of lateral cartilage or meniscus of knee 09/17/2017 Acute medial meniscus tear of left knee 08/22/2017 Traumatic tear of medial meniscus of left knee 08/08/2017 Acute pain of left knee 07/10/2017 documented as of this encounter (statuses as of 10/30/2019) Social History Tobacco Use Types Packs/Day Years Used Date Current Every Day Smoker Cigarettes 0.25 Smokeless Tobacco: Never Used Alcohol Use Drinks/Week oz/Week Comments Yes 1-2 a month Sex Assigned at Date Recorded Not on file Job Start Date Occupation Industry Not on file Not on file Not on file Travel History Travel Start Travel End No recent travel history available. documented as of this encounter Last Filed Vital Signs Vital Sign Reading Time Taken Comments Blood Pressure 137/69 10/30/2019 8:03 AM EST Pulse 58 10/30/2019 8:03 AM EST Temperature - - Respiratory Rate - - Oxygen Saturation - - Inhaled Oxygen Concentration - - Weight 83.9 kg (185 lb) 10/30/2019 8:03 AM EST Height 162.6 cm (5' 4") 10/30/2019 8:03 AM EST Body Mass Index 31.76 10/30/2019 8:03 AM EST documented in this encounter Progress Notes Marli Montiel RPA-C - 10/30/2019 8:00 AM EST Patient: Rupinder Kurtz : 1955 Date of Service: 10/30/2019 Chief Complaint Patient presents with Post-op Follow-up S/P right RCR 08-05-19. Patient states that her right shoulder is doing good. PT is going good as well. HPI: Rupinder Kurtz is a 63-y.o. female who is here for follow up right shoulder open decompression and rotator cuff repair. States doing well. Physical therapy is going well. Now 2 1/2/months s/p surgery. Physical Exam: Shoulder: Range of motion of the right shoulder demonstrates Forward elevation to 150 , abduction to 150 adduction. There is pain at extremes of motion. Patient is not tender over the anterior lateral aspect of the right shoulder. Neurological: Sensation is intact to the hand. Vascular: Radial pulse is present. Hand swelling of the right absent. Skin condition to the rightupper extremity is unremarkable and intact. Impression: ICD-9-CM ICD-10-CM 1. S/P rotator cuff repair V45.89 Z98.890 Plan: The diagnosis was discussed with the patient. Continue physical therapy. Recheck in 2 months . Author: NEGAR Bone 10/30/2019 08:08 documented in this encounter Plan of Treatment Health Maintenance Due Date Last Done Comments PNEUMOCOCCAL 0-64 YRS (1 of 1 - 1961 PPSV23) DTaP/Tdap/Td Vaccines (1 - Tdap) 1966 DEPRESSION SCREENING 1967 HIV SCREENING 1970 LIPID DISORDER SCREENING 1973 PAP SMEAR 1976 HEPATITIS C SCREENING 1995 MAMMOGRAM (SCREENING) 1995 Colonoscopy 2005 ZOSTER IMMUNIZATION SERIES (1 of 2005 2) INFLUENZA VACCINE (#1) 2019 DIABETES SCREENING 07/17/2020 07/17/2019 HEPATITIS A IMMUNIZATION SERIES Aged Out No longer eligible based on patient's age to complete this topic HPV IMMUNIZATION SERIES Aged Out No longer eligible based on patient's age to complete this topic MENINGOCOCCAL VACCINE IMM Aged Out No longer eligible based on patient's age to complete this topic documented as of this encounter Implants Implanted Type Area Driver Merchandiser Device Shelf Model / Identifier Expiration Serial / Lot Date Bio Cork Screw - [id number] Right: AR[employer]REX 04/03/2020 [id number] / Implanted: Qty: 1 on 08/05/2019 by Bossman Albarado MD at [facility] Shoulder [id number] / [id number] documented as of this encounter Results Not on filedocumented in this encounter Visit Diagnoses Diagnosis S/P rotator cuff repair Other postprocedural status documented in this encounter Insurance Payer Benefit Plan / Subscriber ID Effective Dates Phone Address Type Group BCBS NATIONAL BCBS NATIONAL xxxxxxxxxxxxxxx 2015-Presen Blue t Cross/Blue Shield documented as of this encounter Advance Directives Code Status Date Activated Date Inactivated Comments Full Code 09/04/2017 10:00 AM 09/04/2017 2:27 PM Does patient have decision making capacity? yes Order discussed with: Patient I discussed all options and patient/surrogate requested and agreed to: Full Code
--- OUTSIDE RECORDS SUMMARY | 2019-11-06 15:11 | XMS REPORT | Continuity of Care Document ---
:1955 External Reference #:[id number] Author Name Edith Ta MD Address [address] [place] [id number] Care Team Providers Name Role Phone Gary Mehta MD Care Team Information Software Development Analyst [phone] Problems Description No Information Available Social History Type Date Description Comments Sex Unknown Tobacco Use Start: Unknown Patient is a current smoker, smokes every day Smoking Status Reviewed: 08/25/19 Patient is a current smoker, smokes every day Allergies, Adverse Reactions, Alerts Active Allergies Reaction Severity Comments Date Penicillin 08/25/2019 Medications Active Medications SIG Qnty Indications Ordering Date Provider Omeprazole take 1 capsule by mike Sharma 08/25/2019 20mg mouth daily. take MD Cely Capsules DR 30-60 minutes before breakfast Suprep Bowel Prep Kit as directed 1units Edith 08/25/2019 MD Cely 17.5-3.13-1.6GM/177ML Solution Atorvastatin Calcium Take 1 Tablet 90tabs E78.0 Gary Mehta, 08/07/2016 Daily 20mg Tablets Advil prn Gary Mehta, 09/13/2011 200mg Tablets Amlodipine Besylate Take 1 Tablet 90tabs Gary Mehta, 07/20/2010 Daily 10mg Tablets History Medications Metronidazole one tablet by 21Gary Gallagher MD 07/02/2019 - 500mg Tablets mouth 3 times 08/25/2019 daily for 7 days Immunizations CPT Code Status Date Vaccine Lot # [id number] Given 10/10/2018 Influenza Virus Vaccine, Quadrivalent, Split, Preservative Free 64787 Given 08/08/2017 Influenza Virus Vaccine, Quadrivalent, Split, Preservative Free 63981 Given 08/07/2016 Influenza Virus Vaccine, Quadrivalent, Split, Preservative Free 30785 Given 07/28/2015 Influenza Virus Vaccine, Quadrivalent, Split, Preservative Free 20240 Given 07/27/2014 Influenza Virus Vaccine, Quadrivalent, Split, Preservative Free 20360 Given 07/27/2014 Pneumococcal Conjugate Vaccine 13 Valent For Intramuscular Use 19622 Given 08/09/2012 Influenza Virus Vaccine, [place] [address] Given 07/19/2011 Influenza Virus Vaccine, [place] [address] Given 12/20/2009 Tetanus, Diphtheria Toxoids/Acellular Pertussis Vaccine 7 Or > Vital Signs Date Vital Result Comment 08/25/2019 11:16am Height 63 inches 5'3" Weight 186.00 lb BP Systolic 131 mmHg BP Diastolic 77 mmHg Heart Rate 48 /min BMI (Body Mass Index) 32.9 kg/m2 12/29/2015 11:11am Height 63 inches 5'3" Weight 180.00 lb BMI (Body Mass Index) 31.9 kg/m2 Results Test Acquired Date Facility Test Result H/L Range Note Laboratory test 07/01/2019 [facility] [place] SEE RESULT 1 finding Pathology BELOW Order CBC Auto Diff 06/30/2019 N2N/[facility] Import White Blood 10.4 3.5-10.8 Count 10^3/uL Red Blood Count 5.35 10^6/uL High 3.70-4.87 Hemoglobin 14.4 g/dL 12.0-16.0 Hematocrit 43 % 35-47 Mean Corpuscular Volume 80 fL 80-97 Mean Corpuscular Hemoglobin 27 pg 27-31 Mean Corpuscular HGB Conc 34 g/dL 31-36 Red Cell Distribution Width 15 % 10-15 Platelet Count 239 10^3/uL 150-450 Mean Platelet Volume 7.8 fL 7.4-10.4 Abs Neutrophils 8.8 10^3/uL High 1.5-7.7 Abs Lymphocytes 1.1 10^3/uL 1.0-4.8 Abs Monocytes 0.4 10^3/uL 0-0.8 Abs Eosinophils 0.0 10^3/uL 0-0.6 Abs Basophils 0.0 10^3/uL 0-0.2 Abs Nucleated RBC 0.0 10^3/uL Granulocyte % 84.9 % Lymphocyte % 10.5 % Monocyte % 3.9 % Eosinophil % 0.2 % Basophil % 0.5 % Nucleated Red Blood Cells % 0.0 1 Lab Results 06/30/2019 [facility] [employer] Import Sodium 136 mmol/L 135-145 Potassium 3.6 mmol/L 3.5-5.0 Chloride 103 mmol/L 101-111 Co2 Carbon Dioxide 24 mmol/L 22-32 Anion Gap 9 mmol/L 2-11 Glucose 155 mg/dL High 70-100 Blood Urea Nitrogen 14 mg/dL 6-24 Creatinine 0.78 mg/dL 0.51-0.95 BUN/Creatinine Ratio 17.9 1 8-20 Calcium 10.1 mg/dL 8.6-10.3 Total Protein 7.2 g/dL 6.4-8.9 Albumin 4.4 g/dL 3.2-5.2 Globulin 2.8 g/dL 2-4 Albumin/Globulin Ratio 1.6 1 1-3 Total Bilirubin 0.40 mg/dL 0.2-1.0 Alkaline Phosphatase 74 U/L 34-104 Alt 17 U/L 7-52 Ast 16 U/L 13-39 Egfr Non- 74.6 1 Egfr 90.3 1 2 Magnesium 1.9 mg/dL 1.9-2.7 Amylase 55 U/L 29-103 Lipase 18 U/L 11.0-82.0 C Reactive Protein 14.93 mg/L High Lab Results 06/30/2019 [employer] Import Magnesium 1.9 mg/dL 1.9-2.7 Amylase 55 U/L 29-103 Lipase 18 U/L 11.0-82.0 C Reactive Protein 14.93 mg/L High Inr/Protime 06/30/2019 [employer] Import Inr 1.00 1 0.82-1.09 3 Lab Results 06/30/2019 [employer] [employer] Import Partial Thrombo 39.0 s High 26.0- 38.0 Time PTT Urinalysis Profile 06/30/2019 [employer] Import Urine Color Straw Urine Appearance Clear Urine Specific [place] 1.023 1 1.010-1.030 Urine pH 6.0 1 5-9 Urine Urobilinogen Negative Urine Ketones Negative Urine Protein Negative Urine Leukocytes Negative Urine Blood Negative Urine Nitrite Negative Urine Bilirubin Negative Urine Glucose Negative 1 SEE RESULT BELOW Name: RUPINDER RIVERS Maya : [address]: Marbella Wakefield MD Acct: [id number] Unit: [id number] AGE: 63 Location: [place] [id number] Re07/01/19 Dis: 07/02/19 SEX: F Status: DIS IN SPEC: [id number] JOSE: 07/01/19- SUBM DR: Edith Castaneda MD REQ: [id number] RECD: 07/01/19 STATUS: JOHAN LANCASTER DR: Js Wakefield MD _ ORDERED: LEVEL 4/2 FINAL DIAGNOSIS 1. Colon, sigmoid, biopsy: -- Tubular adenoma. -- No high grade dysplasia or malignancy. 2. Colon, sigmoid, biopsy: -- Hyperplastic polyp. CLINICAL HISTORY Abnormal CT, abdominal pain POST-OPERATIVE DIAGNOSIS Colonoscopy: to cecum; poor prep; sigmoid 8 mm polyp cold snare; diverticulosis; 30-35 cm edematous biopsy narrowed segment; hemorrhoid GROSS DESCRIPTION 1. The specimen is received in formalin labeled, Sigmoid Colon Polyp, and consists of a 0.4 x 0.3 x 0.2 cm santana polypoid soft tissue fragment which is submitted entirely in one cassette. 2. The specimen is received in formalin labeled, Sigmoid Colon Biopsy, and consists of two santana-white irregular soft tissue fragments measuring 0.2 x 0.2 x 0.1 cm and 0.3 x 0.2 x 0.2 cm which are submitted entirely in one cassette. CONTINUED ON NEXT PAGE DEPARTMENT OF PATHOLOGY, [address] [place] [address] Logan Toro M.D. Director [facility] # [id number] RUN DATE: 07/03/19 [facility] LAB LIVE PAGE 2 Patient: RUPINDER RIVERS [id number] (Continued) GROSS DESCRIPTION (Continued) Signed by and Reported on: Yoly Garcia MD 07/03/19 1340 END OF REPORT DEPARTMENT OF PATHOLOGY, [address] [place] [address] Logan Toro M.D. Director [facility] # [id number] 2 Because ethnic data is not always readily available, this report includes an eGFR for both -Americans and non- Americans. The National Kidney Disease Education Program (NKDEP) does not endorse the use of the MDRD equation for patients that are not between the ages of 18 and 70, are , have extremes of body size, muscle mass, or nutritional status, or are non- or non-. According to the National Kidney Foundation, irrespective of diagnosis, the stage of the disease is based on the level of kidney function: Stage Description GFR(mL/min/1.73 m(2)) 1 Kidney damage with normal or decreased GFR 90 2 Kidney damage with mild decrease in GFR 60-89 3 Moderate decrease in GFR 30-59 4 Severe decrease in GFR 15-29 5 Kidney failure <15 (or dialysis) 3 Standard intensity warfarin therapeutic range: 2.0-3.0 High intensity warfarin therapeutic range: 2.5-3.5 Procedures Date Code Description Status 07/01/2019 99816 Moderate Sedation Services; Same Phys Each Additional Completed 15 Mins 07/01/2019 77597 Moderate Sedation Services; Same Phys Each Additional Completed 15 Mins 07/01/2019 82103 Moderate Sedation Services; Same Phys Each Additional Completed 15 Mins 07/01/2019 03508 Moderate Sedation Services; Same Phys Intl 15 Mins; PT Completed >= 5 Years 07/01/2019 90393 Colonoscopy W/ Snare RM Of Polyp/Tumor/Lesion Completed 07/01/2019 29892 Colonscopy+Biopsy Completed 01/02/2006 08632847 Colonoscopy Completed Medical Devices Description No Information Available Encounters Description No Information Available Assessments Date Code Description Provider 08/25/2019 R10.13 Epigastric pain Edith Ta MD 08/25/2019 R68.81 Early satiety Edith Ta MD 08/25/2019 R93.3 Abnormal findings on diagnostic imaging of Edith Castaneda MD other parts of digestive tract 08/25/2019 Z12.11 Encounter for screening for malignant Edith Ta MD neoplasm of colon 08/25/2019 Z86.010 Personal history of colonic polyps Edith Ta MD 07/01/2019 R93.3 Abnormal findings on diagnostic imaging of Edith Castaneda MD other parts of digestive tract 07/01/2019 D12.4 Benign neoplasm of descending colon Edith Ta MD Plan of Treatment Future Appointment(s):09/30/2019 8:00 am - [facility]/25/2019 - Edith Ta, MDR10.13 Epigastric painR68.81 Early djvdnqxY11.3 Abnormal findings on diagnostic imaging of other parts of digestive ukycuJ33.11 Encounter for screening for malignant neoplasm of grlgzC27.010 Personal history of colonic polyps Functional Status Description No Information Available Mental Status Description No Information Available Referrals Description No Information Available
--- OUTSIDE RECORDS SUMMARY | 2019-11-06 15:11 | XMS REPORT | Summary of Care ---
:1955 Author Organization [facility] Address [address] [address] Care Team Providers Name Role Phone Gary Mehta MD Primary Care Provider Reason for Referral Refer to Department Only (Routine) Status Reason Specialty Diagnoses / Referred By Referred To Procedures Contact Contact Authorized Physical Therapy Diagnoses Rotator cuff tendinitis, right Bossman Albarado Guthrie MD Orthopaedics - [address] [place] [address] Physical [facility] Therapy [address] [place] [address] [address] Phone: [place], [place] [phone] Fax: Reason for Visit Reason Comments Follow Up s/p Right RCR 08/05/2019. Patient is doing well. Encounter Details Date Type Department Care Team Description 09/18/2019 Office Visit [facility] - Bossman Albarado MD Rotator cuff [place] [address] [facility] tendinitis, right [address] [facility] [address] (Primary Dx) [place] [address] [place] [address] [phone] Allergies Active Allergy Reactions Severity Noted Date Comments Penicillins Hives 07/10/2017 documented as of this encounter (statuses as of 09/19/2019) Medications Medication Sig Dispensed Refills Start Date End Date Status Multiple Take by 0 Active Vitamins-Minerals mouth. (DAILY MULTIVITAMIN PO) atorvastatin Take by 0 Active (LIPITOR) 20 MG mouth DAILY. Oral Tab amLodipine Take 10 mg by 0 Active (NORVASC) 10 MG mouth DAILY. Oral Tab HYDROcodone-acetami Take 2 Tabs 56 Tab 0 07/17/2019 09/18/2019 Discontinued nophen (NORCO) by mouth 5-325 MG Oral Tab EVERY SIX HOURS NEEDED (pain). Max Daily Amount: 8 Tabs. documented as of this encounter (statuses as of 09/19/2019) Active Problems Problem Noted Date S/P rotator cuff repair 08/18/2019 Traumatic complete tear of right rotator cuff 06/04/2019 Overview: Added automatically from request for surgery [id number] S/P arthroscopic knee surgery 09/30/2017 Current tear of lateral cartilage or meniscus of knee 09/17/2017 Acute medial meniscus tear of left knee 08/22/2017 Traumatic tear of medial meniscus of left knee 08/08/2017 Acute pain of left knee 07/10/2017 documented as of this encounter (statuses as of 09/19/2019) Social History Tobacco Use Types Packs/Day Years [...] Sign Reading Time Taken Comments Blood Pressure 128/78 09/18/2019 9:35 AM EST Pulse 82 09/18/2019 9:35 AM EST Temperature - - Respiratory Rate - - Oxygen Saturation - - Inhaled Oxygen Concentration - - Weight 83.9 kg (185 lb) 09/18/2019 9:35 AM EST Height 162.6 cm (5' 4") 09/18/2019 9:35 AM EST Body Mass Index 31.76 09/18/2019 9:35 AM EST documented in this encounter Progress Notes Bossman Albarado MD - 09/18/2019 9:30 AM EST Name: Rupinder Kurtz : 1955 Date of Service: 09/18/2019 Chief Complaint Patient presents with Follow Up s/p Right RCR 08/05/2019. Patient is doing well. History of Present Illness: Rupinder Kurtz is a 63-y.o. female. The above is noted. It is in today for follow -up of her right shoulder. Patient was last seen in the office on 08/05/2019. She is status post right shoulder decompression and rotator cuff repair. She was last seen by Marli Montiel. Physical Examination: BP 128/78 | Pulse 82 | Ht 5' 4" (1.626 m) | Wt 185 lb (83.9 kg) | LMP 2009 (LMP Unknown) | BMI 31.76 kg/m Well-developed well-nourished female in minimal discomfort at rest. Patient has forward elevation to 80 degrees. Abduction is to approximately 90 degrees. Incision is clean and dry without any evidence of dehiscence. Incision is well- healed. Impression: Status post rotator cuff repair and shoulder decompression. Plan: Continue shoulder rehabilitation and follow-up in the office in 6 weeks with Marli Montiel. All questions were answered. There are no Patient Instructions on file for this visit. Author: Bossman Albarado MD 09/18/2019 09:43 documented in this encounter Plan of Treatment Date Type Specialty Care Team Description 10/30/2019 Office Visit Orthopedics Marli Montiel, RPA-C [address] [place] [address] [phone] Name Type Priority Associated Diagnoses Order Schedule REFER TO PHYSICAL Referral Routine Rotator cuff tendinitis, Expected: 09/18, THERAPY / REHAB right Expires: 09/17/2020 Health Maintenance Due Date Last Done Comments PAP SMEAR 1955 PNEUMOCOCCAL 0-64 YRS (1 of 1 - 1961 PPSV23) DEPRESSION SCREENING 1967 HIV SCREENING 1970 LIPID DISORDER SCREENING 1973 HEPATITIS C SCREENING 1995 MAMMOGRAM (SCREENING) 1995 COLONOSCOPY SCREENING 2005 ZOSTER IMMUNIZATION SERIES (1 of 2005 2) INFLUENZA VACCINE (#1) 2019 DIABETES SCREENING 07/17/2020 07/17/2019 HPV IMMUNIZATION SERIES Aged Out No longer eligible based on patient's age to complete this topic MENINGOCOCCAL VACCINE IMM Aged Out No longer eligible based on patient's age to complete this topic documented as of this encounter Implants Implanted Type Area Car Restorer Device Shelf Model / Identifier Expiration Serial / Lot Date Bio Cork Screw - [id number] Right: [employer] 04/03/2020 [id number] / Implanted: Qty: 1 on 08/05/2019 by Bossman Albarado MD at [facility] Shoulder [id number] / [id number] documented as of this encounter Results Not on filedocumented in this encounter Visit Diagnoses Diagnosis Rotator cuff tendinitis, right - Primary documented in this encounter Insurance Payer Benefit [...]
--- OUTSIDE RECORDS SUMMARY | 2019-11-06 15:11 | XMS REPORT | Continuity of Care Document ---
:1955 External Reference #:[id number] Author Name Gary Mehta M.D. (transmitted by agent of provider Jessica Adams) Address [address] [facility], [place] [address] Care Team Providers Name Role Phone Gary Mehta III, MD - Internal Care Team Information Banking And Finance Instructor Medicine Hemanth Kerr MD - Surgery Care Team Information Banking And Finance Instructor [phone] Edith Ta M.D. - Single Care Team Information Banking And Finance Instructor [phone] Specialty Problems Active Problems Provider Date Benign essential hypertension Gary Mehta M.D. Onset: 07/19/2011 Pure hypercholesterolemia Gary Mehta M.D. Onset: 07/19/2011 Neck pain Gary Mehta M.D. Onset: 01/07/2012 Social History Type Date Description Comments Sex Unknown Tobacco Use Start: Unknown current cigarette smoker 4-5 cigarettes per day now, down from 1-1.5 ppd. Began age 17 ETOH Use 07/03/2013 Occasionally consumes alcohol Tobacco Use Start: Unknown Light tobacco smoker (10 or fewer cigarettes/day) Smoking Status Reviewed: 10/16/19 Light tobacco smoker (10 or fewer cigarettes/day) Exercise Exercises regularly walks daily Type/Frequency Allergies, Adverse Reactions, Alerts Active Allergies Reaction Severity Comments Date Penicillins 01/05/2009 Medications Active Medications SIG Qnty Indications Ordering Provider Date Metronidazole one tablet by 21tabs Gary Mehta, 07/02/2019 500mg Tablets mouth 3 times M.D. daily for 7 days Atorvastatin Calcium Take 1 Tablet 90tabs E78.0 Gary Mehta, 2015 20mg Daily M.D. Tablets Advil prn Gary Mehta, 09/13/2011 200mg Tablets M.D. Amlodipine Besylate Take 1 Tablet 90tabs Gary Mehta, 07/20/2010 10mg Daily M.D. Tablets History Medications Cipro 1 by mouth twice 20tabs Gary Mehta, 07/02/2019 - 500mg Tablets a day M.D. 07/13/2019 Calcium Carbonate take 1 tablet Gary Mehta, 07/02/2019 - every 4 hours as M.D. 07/13/2019 500mg Chewtabs needed for gas Immunizations CPT Code Status Date Vaccine Reaction Lot # [id number] Given 10/10/2018 Influenza Virus Vaccine, [id number] Quadrivalent, Split, Preservative Free 72659 Given 08/08/2017 Influenza Virus Vaccine, given IM in L [id number] Quadrivalent, Split, delt,dora.well,site Preservative Free unremarkable,bandaid applied 86891 Given 08/07/2016 Influenza Virus Vaccine, [id number] Quadrivalent, Split, Preservative Free 39553 Given 07/28/2015 Influenza Virus Vaccine, [id number] Quadrivalent, Split, Preservative Free 06708 Given 07/27/2014 Influenza Virus Vaccine, [id number] Quadrivalent, Split, Preservative Free 48996 Given 07/27/2014 Pneumococcal Conjugate [id number] Vaccine 13 Valent For Intramuscular Use Q2037 Given 08/09/2012 Fluvirin Im 3Yrs And Older [id number] 69092 Given 07/19/2011 Influenza Virus 3Yrs & Over 10495 Given 12/20/2009 Tdap - [id number] Tetanus/Diptheria/Acellular Pertussis Vital Signs Date Vital Result Comment 10/16/2019 9:12am Height 63 inches 5'3" Weight 183.00 lb Heart Rate 42 /min BP Systolic Sitting 138 mmHg BP Diastolic Sitting 83 mmHg Body Temperature 97.6 F BMI (Body Mass Index) 32.4 kg/m2 07/14/2019 1:08pm Height 63 inches 5'3" Weight 189.00 lb Heart Rate 70 /min BP Systolic 124 mmHg BP Diastolic 75 mmHg O2 % BldC Oximetry 96 % BMI (Body Mass Index) 33.5 kg/m2 Results Test Acquired Date Facility Test Result H/L Range Note Comp Metabolic 10/10/2019 [facility] Sodium 141 mmol/L Normal 135-[address] [place] [address] [phone] Potassium 4.6 mmol/L Normal 3.5-5.0 Chloride 104 mmol/L Normal 101-111 Co2 Carbon Dioxide 30 mmol/L Normal 22-32 Anion Gap 7 mmol/L Normal 2-11 Glucose 98 mg/dL Normal 70-100 Blood Urea Nitrogen 14 mg/dL Normal 6-24 Creatinine 0.74 mg/dL Normal 0.51-0.95 BUN/Creatinine Ratio 18.9 Normal 8-20 Calcium 9.6 mg/dL Normal 8.6-10.3 Total Protein 6.5 g/dL Normal 6.4-8.9 Albumin 4.4 g/dL Normal 3.2-5.2 Globulin 2.1 g/dL Normal 2-4 Albumin/Globulin Ratio 2.1 Normal 1-3 Total Bilirubin 0.50 mg/dL Normal 0.2-1.0 Alkaline Phosphatase 76 U/L Normal 34-104 Alt 16 U/L Normal 7-52 Ast 19 U/L Normal 13-39 Egfr Non- 79.3 >60 Egfr 95.9 >60 2 Lipid Profile 10/10/2019 [facility] Triglycerides 132 mg/dL 3 (Trig/Chol/HDL) [address] [place] [address] [phone] Cholesterol 156 mg/dL 4 HDL Cholesterol 44.1 mg/dL 5 LDL Cholesterol 86 mg/dL 6 Liver 10/10/2019 [facility] Direct 0.10 Normal 0.03-0.[address] Bilirubin mg/[place] [address] [phone] Indirect Bilirubin 0.4 mg/dL Normal 0.3-1.0 Laboratory test 10/10/2019 [facility] Hemoglobin A1c 5.9 % High 4.0-5.[address] (Glyco HGB) [place] [address] [phone] Laboratory test 09/30/2019 [facility] Clotest SEE RESULT [address] [place] [address] [phone] Surgical 09/30/2019 [facility] Surgical SEE RESULT [address] [place] [address] [phone] PDFReport SEE IMAGE Cytology 08/21/2019 [facility] Cytology SEE RESULT BELOW 10 , [address] [place] [address] [phone] PDFReport [id number] <SEE NOTE> Laboratory test 07/01/2019 [facility] Surgical SEE RESULT [address] [place] [address] Order [phone] CBC Auto Diff 06/30/2019 [facility] White Blood 10.4 Normal 3.5-[address] Count 10^3/uL 0.8 [place] [address] [phone] Red Blood Count 5.35 10^6/uL High 3.70-4.87 Hemoglobin 14.4 g/dL Normal 12.0-16.0 Hematocrit 43 % Normal 35-47 Mean Corpuscular Volume 80 fL Normal 80-97 Mean Corpuscular Hemoglobin 27 pg Normal 27-31 Mean Corpuscular HGB Conc 34 g/dL Normal 31-36 Red Cell Distribution Width 15 % Normal 10-15 Platelet Count 239 10^3/uL Normal 150-450 Mean Platelet Volume 7.8 fL Normal 7.4-10.4 Abs Neutrophils 8.8 10^3/uL High 1.5-7.7 Abs Lymphocytes 1.1 10^3/uL Normal 1.0-4.8 Abs Monocytes 0.4 10^3/uL Normal 0-0.8 Abs Eosinophils 0.0 10^3/uL Normal 0-0.6 Abs Basophils 0.0 10^3/uL Normal 0-0.2 Abs Nucleated RBC 0.0 10^3/uL Granulocyte % 84.9 % Lymphocyte % 10.5 % Monocyte % 3.9 % Eosinophil % 0.2 % Basophil % 0.5 % Nucleated Red Blood Cells % 0.0 Comp Metabolic 06/30/2019 [facility] Sodium 136 mmol/L Normal 135-[address] [place], [place] [id number] [phone] Potassium 3.6 mmol/L Normal 3.5-5.0 Chloride 103 mmol/L Normal 101-111 Co2 Carbon Dioxide 24 mmol/L Normal 22-32 Anion Gap 9 mmol/L Normal 2-11 Glucose 155 mg/dL High 70-100 Blood Urea Nitrogen 14 mg/dL Normal 6-24 Creatinine 0.78 mg/dL Normal 0.51-0.95 BUN/Creatinine Ratio 17.9 Normal 8-20 Calcium 10.1 mg/dL Normal 8.6-10.3 Total Protein 7.2 g/dL Normal 6.4-8.9 Albumin 4.4 g/dL Normal 3.2-5.2 Globulin 2.8 g/dL Normal 2-4 Albumin/Globulin Ratio 1.6 Normal 1-3 Total Bilirubin 0.40 mg/dL Normal 0.2-1.0 Alkaline Phosphatase 74 U/L Normal 34-104 Alt 17 U/L Normal 7-52 Ast 16 U/L Normal 13-39 Egfr Non- 74.6 >60 Egfr 90.3 >60 13 Laboratory test 06/30/2019 [facility] Magnesium 1.9 mg/dL Normal 1.9-2.7 finding [address] [place] [address] [phone] Amylase 55 U/L Normal 29-103 Lipase 18 U/L Normal 11.0-82.0 C Reactive Protein 14.93 mg/L High <8.01 Inr/Protime 06/30/2019 [facility] Inr 1.00 Normal 0.82-1.09 14 [address] [place] [address] [phone] Laboratory test 06/30/2019 [facility] Partial 39.0 High 26.0- 38.0 finding [address] [facility] [place] [address] Time PTT [phone] Urinalysis 06/30/2019 [facility] Urine Color Straw Profile [address] [place] [address] [phone] Urine Appearance Clear Urine Specific [place] 1.023 Normal 1.010-1.030 Urine pH 6.0 Normal 5-9 Urine Urobilinogen Negative Negative Urine Ketones Negative Negative Urine Protein Negative Negative Urine Leukocytes Negative Negative Urine Blood Negative Negative Urine Nitrite Negative Negative Urine Bilirubin Negative Negative Urine Glucose Negative Negative 1 FASTING 2 Because ethnic data is not always [...] 5 Kidney failure <15 (or dialysis) 3 Desirable: <150 Borderline High: 150-199 High: 200-499 Very High: >500 4 Desirable: <200 Borderline High: 200-239 High: >239 5 Low: <40 Desirable: 40-60 High: >60 6 Desirable: <100 Near Optimal: 100-129 Borderline High: 130-159 High: 160-189 Very High: >189 7 Therapeutic target for the treatment of diabetes mellitus patients is <7% HBA1C, and in selective patients <6.0%. Please refer to [place] [employer] diabetic care guidelines for further information. 8 SEE RESULT BELOW Name: FRANCINE RIVERS Maya : [address]: Edith Ta MD Acct: [id number] Unit: [id number] AGE: 63 Location: ENDO Re09/30/19 SEX: F Status: REG REF SPEC: [id number] JOSE: 09/30/1958 [facility] DR: Edith Ta MD REQ: [id number] RECD: 09/30/19029 STATUS: COMP [facility] DR: Gary Mehta III, MD _ SOURCE: GAS ANTRUM SPDESC: ORDERED: Clotest Procedure Result Reported Site Clotest Final 10/01/19- 0852 ML Clotest Negative * ML - Main Lab . END OF REPORT DEPARTMENT OF PATHOLOGY, [address] [place] [address] Logan Toro M.D. Director [facility] # [id number] 9 SEE RESULT BELOW Name: FRANCINE RIVERS : [address]: Edith Ta MD Acct: [id number] Unit: [id number] AGE: 63 Location: ENDO Re09/30/19 SEX: F Status: DEP REF SPEC: [id number] JOSE: 09/30/1914 [facility] DR: Edith Castaneda MD REQ: [id number] RECD: 09/30/194652 STATUS: [facility] DR: Gary Mehta III, MD _ ORDERED: LEVEL 4/5, IMMUNO-FIRST ADDENDUM Addendum: An immunohistochemical stain for Helicobacter pylori-like organisms with appropriate controls was performed in part 2 and is negative. Addendum Signed (signature on file) Logan Toro MD 1027 FINAL DIAGNOSIS 1. Small bowel, duodenum, biopsy: -- Small bowel mucosa with normal villous architecture and no significant pathologic abnormality. -- No villous blunting or increased lamina propria with possible lymphocytic infiltrate is identified. 2. Stomach, biopsies: -- Gastric antral mucosa with mild patchy chronic inflammation. -- Gastric fundic gland mucosa with no significant pathologic abnormality. -- No active gastritis nor Helicobacter pylori-like organisms identified on H E microscopy. 3. 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 -- No specific features of active reflux esophagitis identified. -- No dysplasia identified. 4. Colon, 20 cm, biopsy: -- Large intestinal mucosa with mild architectural disorder compatible with repair. -- No active inflammation or adenomatous change identified. CONTINUED ON NEXT PAGE DEPARTMENT OF PATHOLOGY, [address] [place] [address] Logan Toro M.D. Director [facility] # [id number] 5. Colon, rectum, biopsy: -- Large intestinal mucosa with architectural disorder and lamina propria muciphages compatible with repair. -- No active inflammation or adenomatous change identified. Comment: An immunohistochemical stain for Helicobacter pylori-like organisms is pending in part 2 and will be reported in an addendum. CLINICAL HISTORY Early satiety, dyspepsia, abnormal CT/colon POST-OPERATIVE DIAGNOSIS EGD: esophagus-mildly irregular gastroesophageal junction-biopsy; gastric- normal, biopsy, CLOtest; duodenum-normal; colonoscopy to terminal ileum; pediatric scope; diverticula; 20-30cm thickening, edema-biopsy; mild abnormal rectum-biopsy GROSS DESCRIPTION 1. The specimen is received in formalin labeled, Duodenal Biopsies, and consists of a 1.0 by up to 0.7 x 0.3 cm aggregate of santana-brown irregular to polypoid soft tissue fragments, which is entirely submitted in one cassette. 2. The specimen is received in formalin labeled, Gastric Biopsies, and consists of three santana-brown irregular to polypoid soft tissue fragments ranging from 0.3 x 0.2 x 0.1 cm 0.6 x 0.5 x 0.3 cm, which are entirely submitted in one cassette. 3. The specimen is received in formalin labeled, GE Junction Biopsy, and consists of three santana-pink irregular to polypoid soft tissue fragments ranging from 0.3 x 0.3 x 0.3 cm to 0.6 x 0.3 x 0.2 cm, which are entirely submitted in one cassette. 4. The specimen is received in formalin labeled, Colon Biopsies at 20 cm, and consists of a 1.0 x 0.7 x 0.3 cm aggregate of santana-pink irregular to polypoid soft tissue fragments, which is entirely submitted in one cassette. 5. The specimen is received in formalin labeled, Rectal Biopsy, and consists of three CONTINUED ON NEXT PAGE DEPARTMENT OF PATHOLOGY, [address] [place] [address] Logan Toro M.D. Director [facility] # [id number] speckled santana-pink irregular to polypoid soft tissue fragments ranging from 0.4 x 0.3 x 0.2 cm to 0.8 x 0.3 x 0.1 cm, which are entirely submitted in one cassette. Signed by and Reported on: Logan Toro MD 12/23 1031 END OF REPORT DEPARTMENT OF PATHOLOGY, [address] [place] [address] Logan Toro M.D. Director [facility] # [id number] 10 [id number] 11 SEE RESULT BELOW Name: FRANCINE RIVERS : [address]: Susy Bello MD Acct: [id number] Unit: [id number] AGE: 63 Location: [facility] Re08/21/19 SEX: F Status: REG REF SPEC: [id number] JOSE: 08/21/19 [facility] DR: Susy Bello MD REQ: [id number] RECD: 08/21/19 STATUS: [facility] DR: Gary Mehta III, MD _ ORDERED: TP IMAGE ANALYS, HPV/Thin Prep COMMENTS: [id number] FINAL DIAGNOSIS Negative for Intraepithelial lesion or Malignancy HPV RESULTS Date Time Test Result Flag (u) Normal Range 08/21/19 0937 HPV DARLENE Negative Negative The high-risk HPV types detected by the assay include: 16, 18, 31, 33, 35, 39, 45, 51, 52, 56, 58, 59, 66, and 68. SPECIMEN(S) RECEIVED A. Ectocervical/Endocervical CYTOLOGY ADEQUACY Specimen Adequacy: Satisfactory of evaluation Transformation zone component cannot be definitely identified due to presence of atrophy or other hormonal changes CONTINUED ON NEXT PAGE DEPARTMENT OF PATHOLOGY, [address] [place] [address] Logan Toro M.D. Director [facility] # [id number] CYTOLOGY PATIENT INFORMATION Patient Information: HPV: High risk HPV RNA testing regardless of pap results. Actual Specimen Date: 08/21/19 LMP If Unknown: 2008 Date of Last Specimen: 03/21/19 Post Menopausal?: Y Signed by and Reported on: KAYLEY Beltran(ASCP) [id number] This Pap test was evaluated with the assistance of the [employer]Prep Test Imaging System. Due to cytologic findings at the change booth attendant microscope, comprehensive manual rescreening by a [employer] District Law Clerk may be required. The Pap Smear is a screening test designed to aid in the detection of premalignant and malignant conditions of the uterine cervix. It is not a diagnostic procedure and should not be used as the sole means of detecting cervical cancer. Both false- positive and false- negative reports do occur. Depending on your risk status, a Pap smear should be obtained and evaluated every 1-3 years. END OF REPORT DEPARTMENT OF PATHOLOGY, [address] [place] [address] Logan Toro M.D. Director [facility] # [id number] 12 SEE RESULT BELOW Name: FRANCINE RIVERS : [address]: Marbella Wakefield MD Acct: [id number] Unit: [id number] AGE: 63 Location: [place] [address] Re07/01/19 Dis: 07/02/19 SEX: F Status: DIS IN SPEC: [id number] JOSE: 07/01/19- SUBM DR: Edith Castaneda MD REQ: [id number] RECD: 07/01/19 STATUS: JOHAN [facility] DR: Js [...] CONTINUED ON NEXT PAGE DEPARTMENT OF PATHOLOGY, [address] [place] [address] Logan Toro M.D. Director [facility] # [id number] RUN DATE: 07/03/19 [facility] LAB LIVE PAGE 2 Patient: FRANCINE RIVERS [id number] (Continued) GROSS DESCRIPTION (Continued) Signed by and Reported on: Yoly Garcia MD 07/03/19 1340 END OF REPORT DEPARTMENT OF PATHOLOGY, [address] [place] [address] Logan Toro M.D. Director [facility] # [id number] 13 Because ethnic data is not always readily [...] 15-29 5 Kidney failure <15 (or dialysis) 14 Standard intensity warfarin therapeutic range: 2.0-3.0 High intensity warfarin therapeutic range: 2.5-3.5 Procedures Date Code Description Status 07/20/2019 56659 EKG Tracing & Interpretation Completed 08/07/2018 [id number] Diabetic Retinal Eye Exam Completed 07/29/2017 93084771 Mammogram Completed 07/26/2016 29564701 Mammogram Completed 02/10/2016 86691854 Colonoscopy Completed 07/25/2015 14800647 Mammogram Completed 06/15/2014 49673513 Mammogram Completed 06/12/2013 22644793 Mammogram Completed 02/04/2012 83950537 Mammogram Completed 01/31/2011 13326966 Mammogram Completed 07/24/2010 88847343 Mammogram Completed 01/10/2010 79056032 Mammogram Completed 02/14/2006 02224172 Colonoscopy Completed Medical Devices Description No Information Available Encounters Type Date Location Provider Dx Diagnosis Office Visit 07/14/2019 [facility] Internal Gary Olivarez K52.9 Noninfective 1:00p Medicine - Maynor Mehta M.D. gastroenteritis and colitis, unspecified Office Visit 07/02/2019 [facility] Js Osorio K57.32 Dvtrcli of lg int w/o 10:08a memo Russod, perforation or Hospitalists Brennon,FACP abscess w/o bleeding I10 Essential (primary) hypertension E78.5 Hyperlipidemia, unspecified Z72.0 Tobacco use Office Visit 07/01/2019 [facility] Sheryl Chacon, K52.9 Noninfective 10:08a memo Russo MD gastroenteritis and Hospitalists colitis, unspecified I10 Essential (primary) hypertension E78.5 Hyperlipidemia, unspecified Z72.0 Tobacco use Assessments Date Code Description Provider 10/16/2019 Z00.00 Encounter for general adult medical Gary Mehta M.D. examination without abnormal findings 10/16/2019 I10 Essential (primary) hypertension Gary Mehta M.D. 10/16/2019 E78.5 Hyperlipidemia, unspecified Gary Mehta M.D. 10/16/2019 R73.01 Impaired fasting glucose Gary Mehta M.D. 10/16/2019 K21.9 Gastro-esophageal reflux disease Gary Mehta M.D. without esophagitis 07/20/2019 Z01.810 Encounter for preprocedural Nurse Visit A cardiovascular examination 07/20/2019 I49.3 Ventricular premature depolarization Nurse Visit A 07/14/2019 K52.9 Noninfective gastroenteritis and Gary Mehta M.D. colitis, unspecified 07/02/2019 K57.32 Diverticulitis of large intestine Js Wakefield M.D., FACP without perforation or abscess without bleeding 07/02/2019 I10 Essential (primary) hypertension Js Wakefield M.D.,FACP 07/02/2019 E78.5 Hyperlipidemia, unspecified Js Wakefield M.D.,FACP 07/02/2019 Z72.0 Tobacco use Js Wakefield M.D.,FACP 07/01/2019 K52.9 Noninfective gastroenteritis and Sheryl Chacon MD colitis, unspecified 07/01/2019 I10 Essential (primary) hypertension Sheryl Chacon MD 07/01/2019 E78.5 Hyperlipidemia, unspecified Sheryl Chacon MD 07/01/2019 Z72.0 Tobacco use Sheryl Chacon MD Plan of Treatment Future Appointment(s):04/19/2020 9:00 am - [facility] Gary Mehta M.D.Z00.00 Encounter for general adult medical examination without abnormal findingsComments:Flu shot today; discussed the new shingles vaccine. tetanus booster due next year. 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 Colon exam and EGD done in Nov, but no reports on chart. Mammogram current. Still duefor a repeat screening lung CT scan. Smoking cessation discussed and trial of nicotine gum suggestedImmunizations/ Injections:Influenza Virus Vaccine, Quadrivalent, Split, Preservative FreeI10 Essential (primary) hypertensionComments:No recent home BPs, but office BPs ok. Weight down 6 lbs overall from last yearFollow up:6 months or prn. Bring in home BPs and BP machine with next apptE78.5 Hyperlipidemia, unspecifiedComments: On Rx; LDL 86R73.01 Impaired fasting glucoseComments:Diet Rx only; glucose normal this year, A1c improved at 5.9. Continue diet, weight control [id number] Gastro-esophageal reflux disease without esophagitisComments:Occ heartburn sx better with prn antacids. Pt with chronic LLQ abd ache sx and a bout of diverticulitis in Jul. seen by GI and a repeat colon exam and EGD done in Sep. No new Rx given and reports not on chart, but esophageal biopsies showed extensive metaplasia. Will review full reports from GI for any other recommendations Functional Status Description No Information Available Mental Status Description No Information Available Referrals Refer to Reason for Referral Status Appt Date Edith Ta M.D. Hospital recheck for abd pain sx; ? Closed 08/25 colitis vs diverticulitis [address] [place] [address] [phone]
[2019-11-06 15:34] LABS: ABS Lymphocytes 1.2 10^3/ul (1.0-4.8); ABS Monocytes 0.7 10^3/ul (0-0.8); Hematocrit 40 % (35-47); Hemoglobin 13.3 g/dL (12.0-16.0); Lymphocyte % 12.2 %; Mean Corpuscular HGB Conc 34 g/dL (31-36); Mean Corpuscular Hemoglobin 27 pg (27-31); Mean Corpuscular Volume 81 fL (80-97); Mean Platelet Volume 7.8 fL (7.4-10.4); Nucleated Red Blood Cells % 0.1; Platelet Count 305 10^3/uL (150-450); Red Cell Distribution Width 15 % (10-15); White Blood Count 9.9 10^3/uL (3.5-10.8)
[2019-11-06 15:52] LABS: Albumin 4.4 g/dL (3.2-5.2); Albumin/Globulin Ratio 1.5 (1-3); Calcium 9.4 mg/dL (8.6-10.3); EGFR African American 76.5 (>60); EGFR Non-African American 63.2 (>60); Globulin 2.9 g/dL (2-4); Potassium 4.7 mmol/L (3.5-5.0); Total Bilirubin 0.4 mg/dL (0.2-1.0); Total Protein 7.3 g/dL (6.4-8.9)
[2019-11-06] MEDS ORDERED: Iohexol 300* (CONTRAST) 10 ML SDV IV ONE (16:18)
[2019-11-06] MEDS ORDERED: Ondansetron INJ* 2 MG/ML VIAL IV PRN (18:23)
[2019-11-06] MEDS ORDERED: Morphine INJ* 2 MG/ML 1 ML SYRINGE (TWO MG - NEW SYRINGE VERSION) IV PRN (18:25)
[2019-11-06] MEDS ORDERED: hydrALAZINE IV* 20 MG/ML VIAL IV SLOW PU PRN (18:25)
[2019-11-06] MEDS ORDERED: Bisacodyl SUPP* 10 MG SUPP PR ONE (18:37)
[2019-11-06] MEDS: NS 0.9% 1000 ML** 1,000 ML IV SCH (21:01)
--- NOTE | 2019-11-06 21:24 | HP ---
CC: Dr. Gary Mehta; Dr. Ta HISTORY AND PHYSICAL: DATE OF ADMISSION: 11/06/19 REASON FOR ADMISSION: Abdominal pain. PRIMARY CARE PROVIDER: Dr. Gary Mehta. PRIMARY CLERICAL ADJUSTER: Dr. Ta. HISTORY OF PRESENT ILLNESS: This is a 63-year-old female with past medical history of diverticulitis/infectious colitis in June 2019 in which the patient did undergo a sigmoidoscopy on 07/01/19, which demonstrated a polyp in the descending colon as well as a mildly narrow segment of the colon between 30 and 35 cm. The patient was treated for this with antibiotics and subsequently discharged. The patient also underwent an outpatient colonoscopy on 09/30/19, which revealed a segment of the colon from 20 to 30 cm with luminal narrowing and muscular hypertrophy, favor diverticular disease as there is no evidence of polyp or mass on close inspection. The patient was also found to have diverticulosis of the left colon. The patient now reports to the emergency room with abdominal pain as well as constipation. The patient reports that she has not had a bowel movement for the past 5 days and abdominal pain started about 2 days ago. Abdominal pain is described as sharp, stabbing, generalized pain, pain is 8/10 at its worse, there are no relieving factors, exacerbated by moving. She has also had decreased intake since the pain started, associated with nausea as well as dry heaves. There has been no vomiting. Associated with chills, there is no fever. PAST MEDICAL HISTORY: Include: 1. Hypertension. 2. Hyperlipidemia. PAST SURGICAL HISTORY: Include: 1. Right ureteral issue, status post surgery. 2. Right ovary and fallopian tube removal. 3. Appendectomy. MEDICATIONS: Home medications include: 1. Amlodipine 5 mg daily. 2. Ibuprofen 200 mg every 6 hours as needed. 3. Omeprazole 20 mg b.i.d. 4. Atorvastatin 20 mg daily. ALLERGIES: Include PENICILLIN. FAMILY HISTORY: Mother: Multiple sclerosis. Father: Heart problems. SOCIAL HISTORY: The patient lives at home with her . Smokes quarter pack per day, no alcohol use. REVIEW OF SYSTEMS: There is no fever; however, the patient does have chills. The patient does not have any sore throat, no trouble swallowing, no changes in her hearing or her vision. There is no shortness of breath, no cough, no wheezing, no chest pain, no palpitation, no trouble with her urination, no joint pains or muscle aches. Rest of the review of systems was done otherwise listed in the HPI, otherwise was negative. PHYSICAL EXAMINATION GENERAL: This is an obese female, well developed, well nourished, lying in bed in no acute distress. VITAL SIGNS: Blood pressure is 152/87, heart rate of 91, O2 sat of 94%, temperature of 98.0 Fahrenheit. HEENT: Pupils are equal, round, reactive to light. Oral mucosa is dry. There is no nystagmus. LUNGS: There is no tachypnea, no use of accessory muscles. Lungs are clear without any wheezing, rales or rhonchi. HEART: There is no chest wall tenderness, regular rate and rhythm. No murmurs , rubs or gallops. ABDOMEN: There are absent bowel sounds. Abdomen is soft with moderate distention, tympanic upon percussion with moderate tenderness. EXTREMITIES: There is no lower extremity edema, no calf tenderness. NEUROLOGIC: The patient is awake, alert and oriented x3 with no focal neurological deficits. SKIN: Poor skin turgor, there are no rashes or lesions. DIAGNOSTIC STUDIES/LAB DATA: White count 9.9, hemoglobin 13.3, hematocrit 40, platelets are 305. Sodium of 126, potassium of 4.7, chloride 92, carbon dioxide 27. BUN 18, creatinine of 0.9. Glucose of 127. AST of 19, ALT of 18, albumin of 4.4, alkaline phosphatase of 75, lipase of 15. The patient underwent a CT of the abdomen which revealed partial relatively high-grade obstruction of the colon secondary to a lesion located in the sigmoid colon. Differential diagnosis would include a malignant tumor, less likely chronic benign structure , recommend correlation with the patient's initial colonoscopy from September 2019, hepatic steatosis, and right renal cortical scarring, possibly complex right renal cyst. Recommend a followup outpatient renal ultrasound for further evaluation. IMPRESSION AND PLAN: 1. High-grade bowel obstruction- sigmoid colon: At this point, I have discussed the case with Dr. Roopa Davenport, General Surgery, She will consult on the patient. Start the patient on an n.p.o. except ice chips diet, IV fluids, pain control. Per the recommendation of Dr. Davenport, I have also ordered a suppository of Dulcolax x1. Of note, the patient reported to me that she had a bowel movement after a CAT scan was done which was a liquid bowel movement. 2. History of hypertension. Currently we will hold the patient's home medications due to the patient being n.p.o. Start the patient on IV hydralazine p.r.n. as needed for systolic greater than 160. 3. Abnormal renal cortical cyst seen on the CAT scan. The patient will require an outpatient renal ultrasound. 4. History of hyperlipidemia. Hold statin as the patient is currently n.p.o.. 5. DVT prophylaxis. We will start the patient on heparin 5000 units subcu every 12 hours. 6. We will get an abdominal KUB one view for tomorrow to monitor the patient's progression. The patient will be admitted to the Hospitalist Service with General Surgery, Dr. Davenport as consultation, n.p.o., IV fluids, pain control with morphine p.r.n. 7. Hyponatremia: Due to poor oral intake. Gentle IV hydration and follow up repeat blood work. [id number]/[facility] #: [id number] LILLY
[2019-11-06] MEDS: Heparin VIAL(*) 5000 UNITS/ML VIAL (FIVE THOUSAND) SUBCUT SCH (21:26)
[2019-11-06] MEDS: Pantoprazole IV* 40 MG IV SCH (21:26)
--- NOTE | 2019-11-06 22:40 | CONS ---
CONSULTATION REPORT: DATE OF CONSULT: 11/06/19. SERVICE: General Surgery. REASON FOR CONSULT: Large bowel obstruction. HISTORY OF PRESENT ILLNESS: Ms. Kurtz is a very pleasant 63-year-old female with a history of hypertension and hyperlipidemia and an episode of acute abdominal pain and possible diverticulitis in June 2019, who was sent to the emergency room from her ethnoarchaeology professor's office with complaints of approximately 4 to 5 days of abdominal pain and constipation. She states that approximately 4 days prior to admission, she started having constipation. The next day she was feeling poorly and on the New day, she states that she was having persistent constipation and abdominal pain. The pain continued until today when she presented to her ethnoarchaeology professor's office, Dr. Yanelis Castaneda for evaluation. Dr. Ta then sent her to the emergency room with concern that she had a bowel obstruction. Of note, the patient in June 2019 had presented to the emergency room with complaints of lower abdominal pain. She was found to have an episode of possible inflammation of the sigmoid colon with evidence of narrowing in this area. She recovered from this episode and underwent a colonoscopy with Dr. Ta but she said that the prep was incomplete and therefore had to be terminated. Per Dr. Ta, the scope was able to pass a benign appearing stricture in the sigmoid colon. No mass was evident. She underwent another colonoscopy in September 2019, and again per Dr. Ta, it appeared to have a fairly long segment stricture and that appeared to be benign with no masses. A biopsy was done but that was also benign. The patient states that she was able to tolerate the bowel prep prior to her September colonoscopy. She states that she has not had to be hospitalized since June and she has not had any significant episodes of abdominal pain until this current episode. She states; however since June, she has had an approximately 10- pound weight loss because she is really not able to tolerate much food. She states that she becomes nauseated, has early satiety. She states that she used to have normal bowel movements but since June has been feeling increasingly constipated. She denies having any blood in her stools. She does not have a family history of colon cancer. She states that her bowel movements have been typically about 1 or 2 a day and they tend to be somewhat soft. Currently, the patient states that she feels better since she has taken the contrast for the CT scan. She has also been able to have several episodes of some loose stools since the CT scan. Currently her pain is approximately 3/10. PAST MEDICAL HISTORY: 1. Hypertension. 2. Hyperlipidemia. 3. Diverticulitis. PAST SURGICAL HISTORY: 1. Ureteral surgery. 2. Appendectomy/right oophorectomy and salpingectomy. MEDICATIONS: 1. Omeprazole 20 mg p.o. b.i.d. 2. Amlodipine 10 mg p.o. daily. ALLERGIES: PENICILLIN, she gets hives. FAMILY HISTORY: Positive for cardiac disease, hypertension. SOCIAL HISTORY: The patient is currently working. She does drink occasionally and she smokes every day approximately a quarter of a pack. REVIEW OF SYSTEMS: Negative for abdominal pain, nausea, constipation. PHYSICAL EXAM: Vital Signs: Temperature is 98, pulse is 87, O2 sat 91% O2 on room air, blood pressure is 149/81. General: This is a well-appearing middle age woman, sitting up comfortably in bed, conversing easily, in no acute distress. HEENT is normocephalic, atraumatic. Cardiovascular: Regular rate and rhythm. Respiratory: Clear to auscultation bilaterally. Abdomen is mildly obese, soft, nondistended. Hypoactive bowel sounds, tender in the right upper quadrant and right upper abdomen. Rectal exam: No mass is palpated in the rectal vault. There is no gross blood or stool. Grossly normal anal tone. DIAGNOSTIC STUDIES/LAB DATA: Imaging: CT abdomen and pelvis from 11/06/19, shows partial relatively high-grade obstruction of the colon secondary to a lesion located in the sigmoid colon. Differential diagnosis would include a malignant tumor, less likely a chronic benign stricture. Recommend correlation with the patient's recent colonoscopy from September 2019, hepatic steatosis, right renal cortical scarring, possible complex right renal cyst. Laboratory values: White blood cell count 9.9, hemoglobin 13.3, hematocrit 40, platelets are 305. Sodium is 126, potassium 4.7, chloride is 92. BUN 18, creatinine 0.9. Glucose is 127. Calcium is 9.4. Total bilirubin is 0.4. AST is 19, ALT is 18, alkaline phosphatase is 75, lipase is 15. ASSESSMENT AND PLAN: Ms. Kurtz is a 63-year-old female who presents with sigmoid colon stricture that is likely a diverticular stricture given her history of questionable diverticulitis in June 2019. She has also had again 2 colonoscopies that have both shown what appears to be a benign stricture and no mass. She presents with a partial large bowel obstruction today and I discussed with her at length the diagnosis using pictures. I explained to her that the potential options are for her to be admitted and undergo conservative management see if she recovers from this episode. Another option is that we could potentially transfer her to higher level of care where she can undergo colonic stenting, so that she can more definitively undergo a bowel prep in preparation for surgery. The patient has elected to remain in the hospital here. She declines undergoing colonic stenting saying that she would prefer just to have it over and done with at one time. If she fails conservative management and is unable to tolerate a bowel prep she may require a more urgent Hartmanns procedure. She is feeling better already after having several liquid bowel movements after the CT scan, so I believe we may be able to avoid urgent surgery. Preferably she will continue to improve so she can undergo a bowel prep and a laparoscopic sigmoidectomy either on this admission or soon thereafter. She will be admitted to the medical service. She should remain n.p.o. She can have rectal suppository. Surgery will continue to follow. [id number]/[facility] #: [id number] LILLY
[2019-11-07 07:11] LABS: ABS Eosinophils 0.1 10^3/ul (0-0.6); ABS Lymphocytes 1.8 10^3/ul (1.0-4.8); ABS Monocytes 0.5 10^3/ul (0-0.8); ABS Neutrophils 4.8 10^3/ul (1.5-7.7); Hematocrit 34 % (35-47); Hemoglobin 11.5 g/dL (12.0-16.0); Lymphocyte % 24.3 %; Mean Corpuscular HGB Conc 34 g/dL (31-36); Mean Corpuscular Hemoglobin 27 pg (27-31); Mean Corpuscular Volume 81 fL (80-97); Platelet Count 242 10^3/uL (150-450); Red Blood Count 4.25 10^6 /uL (3.70-4.87); Red Cell Distribution Width 14 % (10-15); White Blood Count 7.2 10^3/uL (3.5-10.8)
[2019-11-07 07:27] LABS: BUN/Creatinine Ratio 17.7 (8-20); Calcium 8.1 mg/dL (8.6-10.3); EGFR African American 117.6 (>60); EGFR Non-African American 97.2 (>60); Magnesium 2.2 mg/dL (1.9-2.7); Phosphorus 2.7 mg/dL (2.5-5.0); Potassium 3.2 mmol/L (3.5-5.0)
[2019-11-07] MEDS: NS 0.9% 1000 ML** 1,000 ML IV SCH (07:44)
[2019-11-07] MEDS ORDERED: Bisacodyl SUPP* 10 MG SUPP PR ONE (09:18)
--- NOTE | 2019-11-07 09:24 | PN ---
Subjective Date of Service: 11/07/19 Interval History: Admitted yesterday for high grade colonic obstruction Seen by surgeon yesterday as well This morning she reports that she is had another liquid BM this morning, checked with the nurse- no documentation regarding this. She is not passing any gas, but reports that her stomach is making rumbling noises. Family History: Unchanged from Admission Social History: Unchanged from Admission Past Medical History: Unchanged from Admission Objective Active Medications: Bisacodyl (Dulcolax Supp*) 10 mg MT ONCE ONE Stop: 11/07/19 09:19 Heparin Sodium (Porcine) (Heparin Vial(*)) 5,000 units SUBCUT Q12HR [facility] Last Admin: 11/06/19 21:26 Dose: 5,000 units Hydralazine HCl (Apresoline Iv*) 5 mg IV SLOW PU Q6H PRN PRN Reason: SBP > 160 Potassium Chloride/Sodium Chloride (Ns 0.9% W/ 40 Meq Kcl 1000 Ml*) 1,000 mls @ 75 mls/hr IV PER RATE [facility] Morphine Sulfate (Morphine Inj (Syringe))*) 2 mg IV Q4H PRN PRN Reason: PAIN - MODERATE Ondansetron HCl (Zofran Inj*) 4 mg IV Q6H PRN PRN Reason: NAUSEA Pantoprazole Sodium (Protonix Iv*) 40 mg IV DAILY [facility] Last Admin: 11/06/19 21:26 Dose: 40 mg Vital Signs - 8 hr 11/07/19 11/07/19 03:31 07:39 Temperature 98.4 F 97.9 F Pulse Rate 86 79 Respiratory 16 16 Rate Blood Pressure 136/75 139/73 (mmHg) O2 Sat by Pulse 98 94 Oximetry Oxygen Devices in Use Now: None Appearance: Well developed, well nourished, lying in bed, not in distress Eyes: PERRLA Ears/Nose/Mouth/Throat: Mucous Membranes Moist Respiratory: Symmetrical Chest Expansion and Respiratory Effort, Clear to Auscultation Cardiovascular: NL Sounds; No Murmurs; No JVD, RRR, No Edema Abdominal: - - Hypoactive bowel sounds, abdomen is soft, tender at the LLQ, without any rigidity guarding or tenderness. mildly distended Extremities: No Edema Skin: No Rash or Ulcers Neurological: Alert and Oriented x 3, NL Muscle Strength and Tone Result Diagrams: 11/07/19 06:16 11/07/19 06:16 Assess/Plan/Problems-Billing Assessment: - Patient Problems (1) Colonic obstruction Current Visit: Yes Status: Acute Code(s): K56.609 - UNSP INTESTNL OBST, UNSP TO PARTIAL VERSUS COMPLETE OBST SNOMED Code(s): 70439626 Comment: Per CT high grade colon obstruction, could be mass, had colonoscopy was noted to have narrowing- but no mass was seen or appreciated. surgery consulted NPO IV fluids per surgery- will give one time dose of suppository and continue to monitor the patient. (2) Hyponatremia Current Visit: Yes Status: Acute Code(s): E87.1 - HYPO-OSMOLALITY AND HYPONATREMIA SNOMED Code(s): 51583950 Comment: resolved was acute hyponatremia- due to poor PO intake (3) DVT prophylaxis Current Visit: Yes Status: Acute Code(s): Z29.9 - ENCOUNTER FOR PROPHYLACTIC MEASURES, UNSPECIFIED SNOMED Code(s): 056854711 Comment: heparin subQ if she goes for procedure will discontinue this and start SCD (4) HTN (hypertension) Current Visit: No Status: Acute Code(s): I10 - ESSENTIAL (PRIMARY) HYPERTENSION SNOMED Code(s): 56351250 Comment: She is NPO will hold home medications hydralazine PRN
[2019-11-07] MEDS: D5W 1/2 NS 40 Meq KCL 1000 ML* 1,000 ML IV SCH ×2 (09:45→22:59)
[2019-11-07] MEDS: Heparin VIAL(*) 5000 UNITS/ML VIAL (FIVE THOUSAND) SUBCUT SCH ×2 (09:47→22:25)
[2019-11-07] MEDS: Pantoprazole IV* 40 MG IV SCH (09:48)
[2019-11-07] MEDS ORDERED: NS 0.9% w/ 40 Meq KCL 1000 ML* 1,000 ML IV SCH (10:00)
[2019-11-07] MEDS ORDERED: Polyethylene Glycol 3350 BTL* 238 GM BTL PO ONE (13:17)
--- NOTE | 2019-11-07 13:17 | PN ---
Progress Note - Progress Note Date of Service: 11/07/19 Note: Surgery Progress Note S: Patient is feeling much better this morning. She has no pain at all. Overnight she had 5-6 episodes of large volume loose stools and says she felt much better afterwards. She feels her stomach "gurgling." She has no nausea or emesis. O: Vital Signs - 24 hr 11/06/19 11/06/19 11/06/19 14:47 15:13 15:14 Temperature 98.0 F Pulse Rate 71 55 82 Respiratory 16 Rate Blood Pressure 148/109 168/88 (mmHg) O2 Sat by Pulse 98 93 93 Oximetry 11/06/19 11/06/19 11/06/19 15:43 16:00 16:12 Temperature Pulse Rate 85 91 98 Respiratory Rate Blood Pressure 161/92 156/85 (mmHg) O2 Sat by Pulse 98 93 96 Oximetry 11/06/19 11/06/19 11/06/19 16:43 17:00 17:43 Temperature Pulse Rate 88 88 90 Respiratory Rate Blood Pressure 153/85 129/86 (mmHg) O2 Sat by Pulse 92 89 92 Oximetry 11/06/19 11/06/19 11/06/19 18:00 18:04 18:12 Temperature Pulse Rate 86 92 91 Respiratory Rate Blood Pressure 131/97 152/87 (mmHg) O2 Sat by Pulse 95 95 94 Oximetry 11/06/19 11/06/19 11/06/19 19:00 19:14 20:43 Temperature 98.3 F Pulse Rate 85 87 91 Respiratory 18 Rate Blood Pressure 149/81 152/72 (mmHg) O2 Sat by Pulse 94 91 96 Oximetry 11/06/19 11/06/19 11/07/19 20:53 23:22 03:31 Temperature 97 F 98.1 F 98.4 F Pulse Rate 78 86 86 Respiratory 20 16 16 Rate Blood Pressure 148/70 127/80 136/75 (mmHg) O2 Sat by Pulse 98 97 98 Oximetry 11/07/19 11/07/19 11/07/19 07:39 08:00 11:23 Temperature 97.9 F 98.8 F Pulse Rate 79 71 Respiratory 16 18 16 Rate Blood Pressure 139/73 117/74 (mmHg) O2 Sat by Pulse 94 96 Oximetry Intake & Output 11/06/19 11/07/19 11/07/19 22:59 06:59 14:59 Intake Total 1000 0 850 Balance 1000 0 850 Weight 182 lb Intake: IV Fluids 1000 850 NS (0.9%) 850 Oral 0 0 Other: Estimated Void Medium Large # Bowel Movements 1 Estimated Stool Amount Large # Voids 1 Laboratory Results - last 24 hr 11/06/19 11/06/19 11/07/19 15:22 15:22 06:16 WBC 9.9 7.2 RBC 4.90 H 4.25 Hgb 13.3 11.5 L Hct 40 34 L MCV 81 81 MCH 27 27 MCHC 34 34 RDW 15 14 Plt Count 305 242 MPV 7.8 8.0 Neut % (Auto) 80.4 67.1 Lymph % (Auto) 12.2 24.3 Dawes % (Auto) 7.0 7.0 Eos % (Auto) 0.0 1.0 Baso % (Auto) 0.4 0.6 Absolute Neuts (auto) 8.0 H 4.8 Absolute Lymphs (auto) 1.2 1.8 Absolute Monos (auto) 0.7 0.5 Absolute Eos (auto) 0.0 0.1 Absolute Basos (auto) 0.0 0.0 Absolute Nucleated RBC 0.0 0.0 Nucleated RBC % 0.1 0.0 Sodium 126 L Potassium 4.7 Chloride 92 L Carbon Dioxide 27 Anion Gap 7 BUN 18 Creatinine 0.90 Est GFR ( Amer) 76.5 Est GFR (Non-Af Amer) 63.2 BUN/Creatinine Ratio 20.0 Glucose 127 H Calcium 9.4 Phosphorus Magnesium Total Bilirubin 0.40 AST 19 ALT 18 Alkaline Phosphatase 75 Total Protein 7.3 Albumin 4.4 Globulin 2.9 Albumin/Globulin Ratio 1.5 Lipase 15 11/07/19 06:16 WBC RBC Hgb Hct MCV MCH MCHC RDW Plt Count MPV Neut % (Auto) Lymph % (Auto) Dawes % (Auto) Eos % (Auto) Baso % (Auto) Absolute Neuts (auto) Absolute Lymphs (auto) Absolute Monos (auto) Absolute Eos (auto) Absolute Basos (auto) Absolute Nucleated RBC Nucleated RBC % Sodium 138 D Potassium 3.2 L D Chloride 106 Carbon Dioxide 24 Anion Gap 8 BUN 11 Creatinine 0.62 Est GFR ( Amer) 117.6 Est GFR (Non-Af Amer) 97.2 BUN/Creatinine Ratio 17.7 Glucose 104 H Calcium 8.1 L Phosphorus 2.7 Magnesium 2.2 Total Bilirubin AST ALT Alkaline Phosphatase Total Protein Albumin Globulin Albumin/Globulin Ratio Lipase Imaging: AXR- reviewed, persistent dilated loops of colon Physical exam: Abdomen- soft, minimally distended, +hypoactive bowel sounds, non tender A/P: 63 F with partial large bowel obstruction from sigmoid colon stricture, improved. - I discussed with patient today that since her large bowel obstruction has clinically improved and she is having multiple bowel movements (likely from the contrast for the CT scan) she may be able to have a bowel regimen and be discharged on clear liquids with the plan to undergo an elective laparoscopic sigmoidectomy with a bowel prep. Another option would be to undergo surgery on this admission if she cannot tolerate a bowel regimen and a diet. She understands this and understands that we will have a better idea in the next several days which option is possible. - Continue NPO today, and likely CLD tomorrow - Miralax and dulcolax suppository today - Discussed with Dr. Dave
--- NOTE | 2019-11-07 13:41 | CONS ---
GASTROENTEROLOGY CONSULTATION: DATE OF CONSULT: 11/07/19 CONSULTING PHYSICIAN: Kathy Gomez. REASON FOR CONSULTATION: Constipation and abdominal pain with abdominal distention-colonic dilation on CT down to proximal sigmoid transition point. HISTORY OF PRESENT ILLNESS: This 63-year-old woman generally in good health with hypertension, hyperlipidemia, and status post ureteral surgery and appendectomy had initial episode of apparent diverticulitis this past June. She presented then with one day of severe abdominal pain, dry heaves and no fever. Colonoscopy 07/01/19 (later the day of admission) showed a narrowed proximal sigmoid segment and one small descending polyp. She was afebrile for the 2 days and her WBC was 10 then 5 CRP 14.93 and she was sent home on Cipro and Flagyl 6 days (to complete 8 days). After that, she seemed to be doing fairly well, having a bowel movement every day without any laxatives or supplements. She was eating her usual diet, which has no particular restrictions. She had never been in a habit of taking any laxatives and never did start any MiraLAX or fiber. Repeat colonoscopy at the 3 month marichuy with a better prep (to accomplish the screening exam) also showed a narrowed difficult to pass segment in the proximal sigmoid. No polyps were seen About a week ago, she began noting a little more difficulty going. She purchased some Benefiber and then some milk of magnesia, but she seemed to be progressively more distressed over the last several days and reported to her GI office yesterday having had some dry heaves and no passage of gas for 2 or 3 days. She has not had any fever. In the emergency room, CT scan showed a distended large bowel (normal small bowel) and a transition point in the proximal sigmoid colon with thickening of the sigmoid colon. There was no free fluid or gas. There was no stranding. She had had prior colonoscopies in February 2016 [address] Sal showing just mild sigmoid diverticulosis and no polyps. PAST MEDICAL HISTORY: 1. Appendectomy and right oophorectomy. 2. Ureteral surgery. 3. Chronic GERD, on a PPI. 4. Hypertension. 5. Smoking. MEDICATIONS AT HOME: Norvasc 5mg Lipitor 20mg Omeprazole 20 one 2 times a day, Ibuprofen 200 as needed ALLERGIES: PENICILLIN. 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 She is and her works at the same firm. REVIEW OF SYSTEMS: No history of syncope, seizure, TIA, CVA, TB, AR, arrhythmias, hepatitis, jaundice, gastrointestinal bleeding, anemia, or chronic back pain. PHYSICAL EXAM: She is a mild to moderately overweight middle-aged woman, in no overt distress. She is afebrile, pulse 80 and regular, blood pressure 120/74. HEENT exam is unremarkable. She has no icterus. Mucous membranes are normal. She has no adenopathy. Her lungs are clear and heart sounds are regular. The abdomen is symmetric, mildly distended, rounded. Bowel sounds are cavernous and there are some tinkles consistent with obstruction. The sounds are mildly diminished in frequency and clearly abnormal. Perianal inspection and rectal are normal with an empty rectum. HOSPITAL COURSE: Overnight she was kept NPO and had several passages of loose liquid material, and this morning, she has had a couple of more. She has been active and moving around. DIAGNOSTIC STUDIES/LAB DATA: WBC 9.9 on admission, falling to 7.2; hemoglobin 13.3, falling to 11.5; and sodium 126, rising to 138. LFTs normal with albumin of 4.4. Radiology review - dilated colon down to a transition point. IMPRESSION: Sigmoid colon stricture appearing to be secondary to benign disease based on passage of a colonoscope through the area twice in the last 5 months having had two negative screening colonoscopies 3 and 13 yrs ago . The presumed cause is diverticular disease though she had only the one CT scan showing stranding around the typical sigmoid area and received just 8 days of antibiotics. She has not had any typical clinical episodes as there has been no fever or elevated WBC. It is certainly a reasonable goal to hope that it will open up and a bowel prep can be accomplished over an extended number of days. That may not be the case and 2 stage surgery may be required. The role of a colonic stent in this setting is controversial and in my view carries a higher burden of risk than benefit. Adopting numerous positions may facilitate gas passage. [id number]/[facility] #: [id number] LILLY
[2019-11-07] MEDS ORDERED: Polyethylene Glycol 3350* 17 GM PACKET PO ONE (15:00)
[2019-11-08] MEDS: Pantoprazole IV* 40 MG IV SCH (08:24)
[2019-11-08] MEDS: Heparin VIAL(*) 5000 UNITS/ML VIAL (FIVE THOUSAND) SUBCUT SCH ×2 (09:50→21:07)
[2019-11-08] MEDS: D5W 1/2 NS 40 Meq KCL 1000 ML* 1,000 ML IV SCH (11:48)
[2019-11-08] MEDS ORDERED: Magnesium Hydroxide LIQ* 30 ML UDC PO ONE (12:35)
--- NOTE | 2019-11-08 12:45 | PN ---
Progress Note - Progress Note Date of Service: 11/08/19 Note: Surgery Progress Note S: Patient is doing well. She has minimal pain. She continues to have multiple loose bowel movements, greater than the 5 recorded BM in the EMR. O: Vital Signs - 24 hr 11/07/19 11/07/19 11/07/19 15:21 20:10 22:30 Temperature 98.2 F 98.3 F Pulse Rate 73 55 Respiratory 18 16 18 Rate Blood Pressure 131/74 119/73 (mmHg) O2 Sat by Pulse 98 94 Oximetry 11/07/19 11/08/19 11/08/19 23:20 03:10 07:26 Temperature 98.3 F 98.0 F 98.2 F Pulse Rate 56 76 61 Respiratory 18 16 16 Rate Blood Pressure 126/68 126/76 131/70 (mmHg) O2 Sat by Pulse 94 96 99 Oximetry 11/08/19 11/08/19 08:00 11:12 Temperature 99.1 F Pulse Rate 71 Respiratory 16 16 Rate Blood Pressure 134/76 (mmHg) O2 Sat by Pulse 98 Oximetry Intake & Output 11/07/19 11/08/19 11/08/19 22:59 06:59 14:59 Intake Total 055 682 6658 Output Total 200 900 825 Balance 100 90 585 Intake: IV Fluids 930 D5W 1/2 NS 40 meq KCL 930 IVPB 990 D5W 1/2 NS 40 meq KCL 990 Oral 300 0 480 Output: Urine 200 900 825 Other: Estimated Void Medium Small Date of Last Bowel 11/07/19 11/08/2019 Movement # Bowel Movements 1 1 Estimated Stool Amount Medium Small # Voids 1 1 Physical exam: Abdomen- soft, NTND, +bowel sounds A/P: 63 F with partial LBO likely from benign sigmoid stricture, resolving. - CLD today - Miralax and milk of magnesia - Will order AXR for AM. If patient continues to do well, she could possibly be discharged home tomorrow on a bowel regimen and full liquid diet, and return for interval laparoscopic sigmoidectomy
[2019-11-08] MEDS: Polyethylene Glycol 3350* 17 GM PACKET PO SCH (12:48)
[2019-11-08 13:24] LABS: C Reactive Protein 23.58 mg/L (<8.01)
[2019-11-08 13:24] LABS: C Reactive Protein 48.46 mg/L (<8.01)
--- NOTE | 2019-11-08 14:21 | PN ---
Subjective Date of Service: 11/08/19 Interval History: Has been having multiple loose watery bowel movements since yesterday.Reports feeling much better Family History: Unchanged from Admission Social History: Unchanged from Admission Past Medical History: Unchanged from Admission Objective Active Medications: Heparin Sodium (Porcine) (Heparin Vial(*)) 5,000 units SUBCUT Q12HR [facility] Last Admin: 11/08/19 09:50 Dose: 5,000 units Hydralazine HCl (Apresoline Iv*) 5 mg IV SLOW PU Q6H PRN PRN Reason: SBP > 160 Potassium Chloride/Dextrose (D5w 1/2 Ns 40 Meq Kcl 1000 Ml*) 1,000 mls @ 75 mls /hr IV PER RATE [facility] Last Admin: 11/08/19 11:48 Dose: 75 mls/hr Morphine Sulfate (Morphine Inj (Syringe))*) 2 mg IV Q4H PRN PRN Reason: PAIN - MODERATE Ondansetron HCl (Zofran Inj*) 4 mg IV Q6H PRN PRN Reason: NAUSEA Pantoprazole Sodium (Protonix Iv*) 40 mg IV DAILY [facility] Last Admin: 11/08/19 08:24 Dose: 40 mg Polyethylene Glycol/Electrolytes (Miralax*) 17 gm PO DAILY [facility] Last Admin: 11/08/19 12:48 Dose: 17 gm Vital Signs - 8 hr 11/08/19 11/08/19 11/08/19 07:26 08:00 11:12 Temperature 98.2 F 99.1 F Pulse Rate 61 71 Respiratory 16 16 16 Rate Blood Pressure 131/70 134/76 (mmHg) O2 Sat by Pulse 99 98 Oximetry Oxygen Devices in Use Now: None Eyes: No Scleral Icterus Ears/Nose/Mouth/Throat: NL Teeth, Lips, Gums Neck: NL Appearance and Movements; NL JVP Respiratory: Symmetrical Chest Expansion and Respiratory Effort Cardiovascular: NL Sounds; No Murmurs; No JVD Abdominal: NL Sounds; No Tenderness; No Distention, - - soft Extremities: No Edema Skin: No Rash or Ulcers Neurological: Alert and Oriented x 3 Result Diagrams: 11/07/19 06:16 11/07/19 06:16 Assess/Plan/Problems-Billing Assessment: - Patient Problems (1) Colonic obstruction Current Visit: Yes Status: Acute Code(s): K56.609 - UNSP INTESTNL OBST, UNSP TO PARTIAL VERSUS COMPLETE OBST SNOMED Code(s): 99592836 Comment: high grade colon obstruction improving sigmoid stricture appreciate gi and surgery input plan to continue miralax and mom today Advance to Clear liquid diet If improving, likely discharge tomorrow and f/u for interval sigmoidectomy (2) DVT prophylaxis Current Visit: Yes Status: Acute Code(s): Z29.9 - ENCOUNTER FOR PROPHYLACTIC MEASURES, UNSPECIFIED SNOMED Code(s): 352090428 Comment: heparin subQ (3) Hyponatremia Current Visit: Yes Status: Acute Code(s): E87.1 - HYPO-OSMOLALITY AND HYPONATREMIA SNOMED Code(s): 71196420 Comment: resolved (4) HLD (hyperlipidemia) Current Visit: No Status: Acute Code(s): E78.5 - HYPERLIPIDEMIA, UNSPECIFIED SNOMED Code(s): 33832525 Comment: continue home med (5) HTN (hypertension) Current Visit: No Status: Acute Code(s): I10 - ESSENTIAL (PRIMARY) HYPERTENSION SNOMED Code(s): 55882073 Comment: prn hydral if able to tolerate po, will restart home meds (6) Renal cyst Current Visit: Yes Status: Acute Code(s): N28.1 - CYST OF KIDNEY, ACQUIRED SNOMED Code(s): 781526889 Comment: Hypodense lesion likely complex cyst seen on ct not well visualized on renal ultrasound renal fx stable pt with 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
[2019-11-08 14:55] LABS: BUN/Creatinine Ratio 8.5 (8-20); Calcium 8.9 mg/dL (8.6-10.3); EGFR African American 100.6 (>60); EGFR Non-African American 83.1 (>60)
[2019-11-09] MEDS: D5W 1/2 NS 40 Meq KCL 1000 ML* 1,000 ML IV SCH (01:12)
[2019-11-09] MEDS: Polyethylene Glycol 3350* 17 GM PACKET PO SCH (08:33)
[2019-11-09] MEDS: Pantoprazole IV* 40 MG IV SCH (08:33)
[2019-11-09] MEDS: Heparin VIAL(*) 5000 UNITS/ML VIAL (FIVE THOUSAND) SUBCUT SCH (08:33)
--- NOTE | 2019-11-09 10:13 | PN ---
Progress Note - Progress Note Date of Service: 11/09/19 SOAP: Subjective:continues to pass flatus and loose stools;no n/v;no increased abd pain [] Objective: Vital Signs Temp 99.9 F 11/09/19 07:22 Pulse 76 11/09/19 07:22 Resp 18 11/09/19 07:36 BP 120/71 11/09/19 07:22 Pulse Ox 94 11/09/19 07:22 Intake & Output 11/08/19 11/09/19 11/09/19 18:59 06:59 18:59 Intake Total 2370 1470 Output Total 2074 175 Balance 295 -280 Intake: IV Fluids 930 980 D5W 11/05 NS 40 meq KCL 930 980 Oral 1440 490 Output: Urine 2074 1749 Other: Estimated Void Small Date of Last Bowel 11/08/2019 Movement # Bowel Movements 1 0 Estimated Stool Amount Medium # Voids 1 abd:+bs;soft;nondistended;mildly tender L mid,no guarding or rebound;no masses AXR:previously noted colonic obstruction resolved;large bowel distended without dilatation [] Assessment:large bowel obstruction,sigmoid colon stricture;AXR improved;no increased abdominal pain,passing flatus [] Plan:above reviewed with ;can be discharged today if Hospitalist agrees; continue bowel regimen with Miralax,MOM and Colace;continue full liqs and soft foods(I reviewed suggestions);follow up appointment with 11/16/19 and likely plan for colectomy in 3 weeks. []Time spent 30 minutes with>50% in face to face interaction with patient for assessment,pt education and coordination of care
[2019-11-09 10:40] LABS: Hematocrit 41 % (35-47); Hemoglobin 13.5 g/dL (12.0-16.0); Mean Corpuscular HGB Conc 33 g/dL (31-36); Mean Corpuscular Hemoglobin 27 pg (27-31); Mean Corpuscular Volume 82 fL (80-97); Red Cell Distribution Width 15 % (10-15); White Blood Count 10.1 10^3/uL (3.5-10.8)
[2019-11-09 11:26] VITALS: BP 133/73
[2019-11-09 11:27] LABS: Albumin 4.1 g/dL (3.2-5.2); Calcium 9.5 mg/dL (8.6-10.3); Potassium 4.4 mmol/L (3.5-5.0); Total Bilirubin 0.4 mg/dL (0.2-1.0)
[2019-11-09 11:33] LABS: Albumin/Globulin Ratio 1.7 (1-3); BUN/Creatinine Ratio 6.9 (8-20); C Reactive Protein 24.63 mg/L (<8.01); EGFR African American 79.6 (>60); EGFR Non-African American 65.8 (>60); Globulin 2.4 g/dL (2-4); Total Protein 6.5 g/dL (6.4-8.9)
[2019-11-09 11:43] LABS: ABS Basophils 0.1 10^3/ul (0-0.2); ABS Eosinophils 0.1 10^3/ul (0-0.6); ABS Lymphocytes 1.1 10^3/ul (1.0-4.8); ABS Monocytes 0.6 10^3/ul (0-0.8); ABS Neutrophils 8.2 10^3/ul (1.5-7.7); Eosinophil % 1.3 %; Lymphocyte % 10.8 %; Nucleated Red Blood Cells % 0.1; Platelet Count Platelets clumped. 10^3/uL (150-450)
--- NOTE | 2019-11-09 12:16 | PN ---
Progress Note - Progress Note Date of Service: 11/09/19 Note: Surgery Progress Note I saw the patient today and examined her and agree with Shona Becker's note. Patient's partial large bowel obstruction has clinically resolved and AXR today also shows resolution of the obstruction. I will follow up with her in the office next week to discuss surgery, which should be in the next several weeks. She should be discharged on a full liquid diet (we discussed she can have some occasional soft food) and a bowel regimen (milk of magnesia, miralax, colace). She understands to call the office or return to the ED for recurrent symptoms.
[2019-11-09 12:55] LABS: Mean Platelet Volume 7.7 fL (7.4-10.4); Platelet Count 266 10^3/uL (150-450)
--- NOTE | 2019-11-09 20:53 | DS ---
DISCHARGE SUMMARY: DATE OF ADMISSION: 11/06/19 DATE OF DISCHARGE: 11/09/19 PRIMARY DIAGNOSES: 1. Large bowel obstruction. 2. Sigmoid colon stricture. SECONDARY DIAGNOSES: 1. Hypertension. 2. Hyperlipidemia. 3. Renal cyst. HOSPITAL COURSE: 1. A 63-year-old female with past medical history of diverticulitis, infectious colitis in June 2019, who underwent a sigmoidoscopy on 07/01/19, which demonstrated a polyp in the descending colon as well as narrow segment of colon between 30 to 35 cm, subsequent outpatient biopsy on 09/30/19, which revealed a sigmoid colon stricture, came into the hospital with severe abdominal pain, 8/10 in intensity and severe constipation. Please refer to the dictated history and physical for full details. The patient was noted to have high-grade bowel obstruction on imaging. Gastroenterology and Surgery were consulted. The patient was seen by Dr. Bryant from the GI Service and Dr. Davenport from the surgical service followed the patient. The patient was started on a bowel regimen and initially kept n.p.o. The patient improved with her bowel regimen and started having bowel movements. At this point on 11/08/19, the patient was started back on a clear liquid diet, which the patient has tolerated so far. The patient has been seen by Surgery today and the patient also had a repeat abdominal x-ray done today, which showed that the colonic obstruction noted on the previous CT exam was not appreciated and there was resolution of the obstruction with some distention of the large bowel without dilatation. The patient would need laparoscopic sigmoidectomy for definitive management, but as the patient is improved and tolerating clears currently, Dr. Davenport recommends the patient to be discharged on a full liquid diet. Full details on what the patient can eat has been given to the patient. She also recommends the patient to be discharged on a bowel regimen including Colace 100 mg, milk of magnesia 30 mL, and MiraLAX 1 packet a day. The patient has an appointment with Dr. Davenport in a week to follow up with her in the office and schedule further surgery in the upcoming weeks. The patient is advised to return to the ER for any recurrent symptoms or call the office. 2. The patient was also noted to have a renal cyst on CT imaging. The patient has a history of known congenital abnormality and scarring in the right kidney, which was appreciated on imaging. The patient had a renal ultrasound for further evaluation, which did not clearly image the cyst and they recommend a followup in 6 months. This looks stable compared to her prior imaging. Vitals and labs noted to be stable at time of discharge. Please see below for imaging done during hospital stay and results. LABORATORY DATA: WBC 10.1, hemoglobin 13.5, hematocrit 41, platelets noted to be 266. Sodium 137, potassium 4.4, chloride 103, CO2 26, BUN 6, creatinine 0.87. PHYSICAL EXAMINATION: Vitals at time of discharge: Temperature 98.3, pulse 75 , respiratory rate 16, oxygen saturation 100% on room air, blood pressure 125/ 79. Physical Exam: HEENT: NCAT. Heart: S1, S2 present, regular at the time of exam. Lungs: Clear to auscultation. Abdomen: Soft. Hypoactive bowel sounds. No rebound, no guarding. Soft to palpation. Extremities: No edema. Neuro: Alert, oriented x3. MEDICATION LISTS AT TIME OF DISCHARGE: 1. Amlodipine 10 mg p.o. daily. 2. Atorvastatin 20 mg daily. 3. Prilosec 20 mg p.o. b.i.d. 4. Ibuprofen 200 mg p.o. q.6 hours p.r.n. 5. MiraLAX 17 g p.o. daily. 6. Milk of magnesia 30 mL p.o. daily. 7. Colace 100 mg p.o. daily at bedtime. IMAGING: CT abdomen and pelvis on 11/06/19: 1. Partial relative high-grade obstruction of the colon secondary to a lesion, located in the sigmoid colon. Differential diagnosis would include a malignant tumor, less likely a chronic benign stricture. Recommend correlation with the patient's recent colonoscopy from September 2019. 2. Hepatic steatosis. 3. Right renal cortical scarring, possible complex renal cyst. Recommend followup with renal ultrasound. 4. Abdominal x-ray from 11/07/19, persistent large bowel dilation, narrowing is noted in the sigmoid colon on prior study. Renal ultrasound on 11/08/19, no hydronephrosis, hypoechoic lesion identified in the right kidney is not clearly identified on ultrasound and further followup is suggested. Abdominal x-ray on 11/09/19, colonic obstruction noted in the previous exam, not appreciated on current exam. There is distention of the large bowel without dilatation. DISPOSITION: The patient to be discharged home. CONDITION: Stable. FOLLOWUP: 1. The patient to follow up with her PCP in a week. 2. The patient to return to the hospital if she has any recurrent symptoms and to follow up with or call Dr. Davenport's office. 3. The patient to follow up with Dr. Davenport in a week. Will need further surgical management. TIME SPENT: Total time spent on discharge is equal to 60 minutes. [id number]/CPS #: [id number] LILLY
== END 2019-11-09 14:00 | disposition home or self-care (01) | DRG 247 ==
LOC: ED 14:40 → SSU 18:21
PROVIDERS: ADMIT Internal Medicine; ATTEND Internal Medicine
DX: K56.690 Other partial intestinal obstruction (principal); E87.1 Hypo-osmolality and hyponatremia; N28.1 Cyst of kidney, acquired; K76.0 Fatty (change of) liver, not elsewhere classified; E78.5 Hyperlipidemia, unspecified; I10 Essential (primary) hypertension; K57.30 Diverticulosis of large intestine without perforation or abscess without bleeding; K59.00 Constipation, unspecified; F17.210 Nicotine dependence, cigarettes, uncomplicated; E66.9 Obesity, unspecified; Z79.899 Other long term (current) drug therapy; Z88.0 Allergy status to penicillin; Z82.69 Family history of other diseases of the musculoskeletal system and connective tissue; Z82.49 Family history of ischemic heart disease and other diseases of the circulatory system; Z68.31 Body mass index [BMI] 31.0-31.9, adult
CPT/HCPCS: 36415; 74018; 74019; 74177; 76775; 80048; 80053; 83690; 83735; 84100; 85025; 85049; 86140; 96365; 99284; A9270-GY; J1644; J2405; Q9967

== ENCOUNTER 2019-11-20 11:52 | Inpatient (IN) | payer BC ==
--- OUTSIDE RECORDS SUMMARY | 2019-11-20 12:14 | XMS REPORT | Continuity of Care Document ---
:1955 External Reference #:[id number] Author Name Edith Ta MD Address [address] [place] [id number] Care Team Providers Name Role Phone Gary Mehta MD Care Team Information Size Worker [phone] Problems Description No Information Available Social History Type Date Description Comments Sex Unknown Tobacco Use Start: Unknown Patient is a current smoker, smokes every day Smoking Status Reviewed: 11/06/19 Patient is a current smoker, smokes every day Allergies, Adverse Reactions, Alerts Active Allergies Reaction Severity Comments Date Penicillin 08/25/2019 Medications Active Medications SIG Qnty Indications Ordering Provider Date Omeprazole take 1 capsule 60caps Edith 08/25/2019 20mg Capsules by mouth twice MD Cely DR daily. Atorvastatin Calcium Take 1 Tablet 90tabs E78.0 Gary Mehta MD 2015 20mg Daily Tablets Advil prn Gary Mehta MD 09/13/2011 200mg Tablets Amlodipine Besylate Take 1 Tablet 90tabs Gary Mehta MD 07/20/2010 10mg Daily Tablets History Medications Suprep Bowel Prep Kit Mix And Drink 354units Edith 08/25/2019 - as Directed MD Cely 11/06/2019 17.5-3.13-1.6GM/177ML Solution Metronidazole one tablet by 21taGary Godoy MD 07/02/2019 - 500mg Tablets mouth 3 times 08/25/2019 daily for 7 days Immunizations CPT Code Status Date Vaccine Lot # [id number] Given 10/10/2018 Influenza Virus Vaccine, Quadrivalent, Split, Preservative Free 75672 Given 08/08/2017 Influenza Virus Vaccine, Quadrivalent, Split, Preservative Free 60409 Given 08/07/2016 Influenza Virus Vaccine, Quadrivalent, Split, Preservative Free 23505 Given 07/28/2015 Influenza Virus Vaccine, Quadrivalent, Split, Preservative Free 52939 Given 07/27/2014 Influenza Virus Vaccine, Quadrivalent, Split, Preservative Free 30088 Given 07/27/2014 Pneumococcal Conjugate Vaccine 13 Valent For Intramuscular Use 59650 Given 08/09/2012 Influenza Virus Vaccine, [place] [address] Given 07/19/2011 Influenza Virus Vaccine, [place] [address] Given 12/20/2009 Tetanus, Diphtheria Toxoids/Acellular Pertussis Vaccine 7 Or > Vital Signs Date Vital Result Comment 11/06/2019 1:39pm Height 63 inches 5'3" Weight 184.00 lb BMI (Body Mass Index) 32.6 kg/m2 08/25/2019 11:16am Height 63 inches 5'3" Weight 186.00 lb BP Systolic 131 mmHg BP Diastolic 77 mmHg Heart Rate 48 /min BMI (Body Mass Index) 32.9 kg/m2 Results Test Acquired Date Facility Test Result H/L Range Note Laboratory test 09/30/2019 [facility] Clotest SEE RESULT 1 finding BELOW Surgical Pathology 09/30/2019 [facility] Surgical SEE RESULT 2 Pathology BELOW PDFReport SEE IMAGE Laboratory test 07/01/2019 [facility] Surgical SEE RESULT 3 finding Pathology Order BELOW CBC Auto Diff 06/30/2019 N2N/CCD Import White Blood Count 10.4 10^3/uL 3.5-10. 8 Red Blood Count 5.35 10^6/uL High 3.70-4.87 [...] Cells % 0.0 1 Lab Results 06/30/2019 N2N/CCD Import Sodium 136 mmol/L 135-145 Potassium 3.6 [...] Egfr Non- 74.6 1 Egfr 90.3 1 4 Magnesium 1.9 mg/dL 1.9-2.7 Amylase 55 U/L 29-103 Lipase 18 U/L 11.0-82.0 C Reactive Protein 14.93 mg/L High Lab Results 06/30/2019 N2N/CCD Import Magnesium 1.9 mg/dL 1.9-2.7 Amylase 55 U/L 29-103 Lipase 18 U/L 11.0-82.0 C Reactive Protein 14.93 mg/L High Inr/Protime 06/30/2019 N2N/CCD Import Inr 1.00 1 0.82-1.09 5 Lab Results 06/30/2019 N2N/CCD Import Partial Thrombo 39.0 s High 26.0- 38.0 Time PTT Urinalysis Profile 06/30/2019 N2N/CCD Import Urine Color Straw Urine Appearance Clear Urine Specific [place] 1.023 1 1.010-1.030 Urine pH 6.0 1 5-9 Urine Urobilinogen Negative Urine Ketones Negative Urine Protein Negative Urine Leukocytes Negative Urine Blood Negative Urine Nitrite Negative Urine Bilirubin Negative Urine Glucose Negative 1 SEE RESULT BELOW Name: RUPINDER RIVERS : [address]: Edith Ta MD Acct: [id number] Unit: [id number] AGE: 63 Location: ENDO Re09/30/19 SEX: F Status: REG REF SPEC: [id number] JOSE: 09/30/19 [facility] DR: Edith Ta MD REQ: [id number] RECD: 09/30/19 STATUS: BEN LANCASTER DR: Gary Mehta III, MD _ SOURCE: SERGEY ANTRUM SPDESC: ORDERED: Clotest Procedure Result Reported Site Clotest Final 10/01/19- 851 ML Clotest Negative * ML - Main Lab . END OF REPORT DEPARTMENT OF PATHOLOGY, [address] [place] [address] Logan Toro M.D. Director [facility] # [id number] SEE RESULT BELOW Name: RUPINDER RIVERS : [address]: Edith Ta MD Acct: [id number] Unit: [id number] AGE: 63 Location: ENDO Re09/30/19 SEX: F Status: REG REF SPEC: [id number] JOSE: 09/30/19 [facility] DR: Edith Ta MD REQ: [id number] RECD: 09/30/19 STATUS: BEN LANCA[facility] DR: Gary Mehta III, MD _ S[facility] ORDERED: Clotest Procedure Result Reported Site Clotest Final 10/01/19851 ML Clotest Negative * ML - Main Lab . END OF REPORT DEPARTMENT OF PATHOLOGY, [address] [place] [address] Logan Toro M.D. Director [facility] # [id number] 2 SEE RESULT BELOW Name: RUPINDER RIVERS : [address]: Edith Ta MD Acct: [id number] Unit: [id number] AGE: 63 Location: ENDO Re09/30/19 SEX: F Status: DEP REF SPEC: [id number] JOSE: 09/30/19 [facility] DR: Edith Castaneda MD REQ: [id number] RECD: 09/30/198534 STATUS: JOHAN LANCASTER DR: Gary Mehta III, MD _ ORDERED: LEVEL 4/5 FINAL DIAGNOSIS 1. Small bowel, duodenum, biopsy: [...] No active inflammation or adenomatous change identified. 5. Colon, rectum, biopsy: -- Large intestinal mucosa with architectural disorder and lamina propria muciphages compatible with repair. -- No active inflammation or adenomatous change identified. CONTINUED ON NEXT PAGE DEPARTMENT OF PATHOLOGY, [address] [place] [address] Logan Toro M.D. Director [facility] # [id number] Comment: An immunohistochemical stain for Helicobacter pylori-like [...] labeled, Rectal Biopsy, and consists of three speckled santana-pink irregular to polypoid soft tissue fragments ranging from 0.4 x 0.3 x 0.2 cm to 0.8 x 0.3 x 0.1 cm, which are entirely submitted in one cassette. Signed by and Reported on: Logan Toro MD 12/23 1031 END OF REPORT DEPARTMENT OF PATHOLOGY, [address] [place] [address] Logan Toro M.D. Director [facility] # [id number] SEE RESULT BELOW Name: RUPINDER RIVERS : [address]: Edith Ta MD Acct: [id number] Unit: [id number] AGE: 63 Location: ENDO Re09/30/19 SEX: F Status: DEP REF SPEC: [id number] JOSE: 09/30/19 [facility] DR: Edith Castaneda MD REQ: [id number] RECD: 09/30/19 STATUS: JOHAN LANCASTER DR: Gary Mehta III, MD _ ORDERED: LEVEL 4/5 FINAL DIAGNOSIS 1. Small bowel, duodenum, biopsy: [...] No active inflammation or adenomatous change identified. 5. Colon, rectum, biopsy: -- Large intestinal mucosa with architectural disorder and lamina propria muciphages compatible with repair. -- No active inflammation or adenomatous change identified. CONTINUED ON NEXT PAGE DEPARTMENT OF PATHOLOGY, [address] [place] [address] Logan Toro M.D. Director [facility] # [id number] Comment: An immunohistochemical stain for Helicobacter pylori-like [...] labeled, Rectal Biopsy, and consists of three speckled asntana-pink irregular to polypoid soft tissue fragments ranging from 0.4 x 0.3 x 0.2 cm to 0.8 x 0.3 x 0.1 cm, which are entirely submitted in one cassette. Signed by and Reported on: Logan Toro MD 12/23 1031 END OF REPORT DEPARTMENT OF PATHOLOGY, [address] [place] [address] Logan Toro M.D. Director [facility] # [id number] SEE RESULT BELOW Name: RUPINDER RIVERS : [address]: Edith Ta MD Acct: [id number] Unit: [id number] AGE: 63 Location: ENDO Re09/30/19 SEX: F Status: DEP REF SPEC: [id number] JOSE: 09/30/19 [facility] DR: Edith Castaneda MD REQ: [id number] RECD: 09/30/19 STATUS: JOHAN LANCASTER DR: Gary Mehta III, MD _ ORDERED: LEVEL 4/5 FINAL DIAGNOSIS 1. Small bowel, duodenum, biopsy: [...] No active inflammation or adenomatous change identified. 5. Colon, rectum, biopsy: -- Large intestinal mucosa with architectural disorder and lamina propria muciphages compatible with repair. -- No active inflammation or adenomatous change identified. CONTINUED ON NEXT PAGE DEPARTMENT OF PATHOLOGY, [address] [place] [address] Logan Toro M.D. Director [facility] # [id number] Comment: An immunohistochemical stain for Helicobacter pylori-like [...] labeled, Rectal Biopsy, and consists of three speckled santana-pink irregular to polypoid soft tissue fragments ranging from 0.4 x 0.3 x 0.2 cm to 0.8 x 0.3 x 0.1 cm, which are entirely submitted in one cassette. Signed by and Reported on: Logan Toro MD 12/23 1031 END OF REPORT DEPARTMENT OF PATHOLOGY, [address] [place] [address] Logan Toro M.D. Director [facility] # [id number] SEE RESULT BELOW Name: RUPINDER RIVERS : [address]: Edith Ta MD Acct: [id number] Unit: [id number] AGE: 63 Location: ENDO Re09/30/19 SEX: F Status: DEP REF SPEC: [id number] JOSE: 09/30/1914 [facility] DR: Edith Castaneda MD REQ: [id number] RECD: 09/30/198445 STATUS: JOHAN LANCASTER DR: Gary Mehta III, MD _ ORDERED: LEVEL 4/5, IMMUNO-FIRST ADDENDUM Addendum: An immunohistochemical stain for Helicobacter pylori-like organisms with appropriate controls was performed in part 2 and is negative. Addendum Signed (signature on file) Lgoan Toro MD 1027 FINAL DIAGNOSIS 1. Small [...] CONTINUED ON NEXT PAGE DEPARTMENT OF PATHOLOGY, [address] [place] [address] Logan Toro M.D. Director [facility] # [id number] 5. Colon, rectum, biopsy: -- Large intestinal [...] CONTINUED ON NEXT PAGE DEPARTMENT OF PATHOLOGY, [address] [place] [address] Logan Toro M.D. Director [facility] # [id number] speckled santana-pink irregular to polypoid soft tissue fragments ranging from 0.4 x 0.3 x 0.2 cm to 0.8 x 0.3 x 0.1 cm, which are entirely submitted in one cassette. Signed by and Reported on: Logan Toro MD 12/23 1031 END OF REPORT DEPARTMENT OF PATHOLOGY, [address] [place] [address] Logan Toro M.D. Director [facility] # [id number] SEE RESULT BELOW Name: RUPINDER RIVERS Maya : [address]: Edith Ta MD Acct: [id number] Unit: [id number] AGE: 63 Location: ENDO Re09/30/19 SEX: F Status: DEP REF SPEC: [id number] JOSE: 09/30/19 [facility] DR: Edith Castaneda MD REQ: [id number] RECD: 09/30/192206 STATUS: JOHAN LANCASTER DR: Gary Mehta III, [...] CONTINUED ON NEXT PAGE DEPARTMENT OF PATHOLOGY, [address] [place] [address] Logan Toro M.D. Director [facility] # [id number] 5. Colon, rectum, biopsy: -- Large intestinal [...] CONTINUED ON NEXT PAGE DEPARTMENT OF PATHOLOGY, [address] [place] [address] Logan Toro M.D. Director [place] # [id number] speckled santana-pink irregular to polypoid soft tissue fragments ranging from 0.4 x 0.3 x 0.2 cm to 0.8 x 0.3 x 0.1 cm, which are entirely submitted in one cassette. Signed by and Reported on: Logan Toro MD 12/23 1031 END OF REPORT DEPARTMENT OF PATHOLOGY, [address] [place] [address] Logan Toro M.D. Director [facility] # [id number] SEE RESULT BELOW Name: RUPINDER RIVERS : [address]: Edith Ta MD Acct: [id number] Unit: [id number] AGE: 63 Location: ENDO Re09/30/19 SEX: F Status: DEP REF SPEC: [id number] JOSE: 09/30/19 [facility] DR: Edith Castaneda MD REQ: [id number] RECD: 09/30/19401 STATUS: JOHAN LANCASTER DR: Gary Mehta III, [...] CONTINUED ON NEXT PAGE DEPARTMENT OF PATHOLOGY, [address] [place] [address] Logan Toro M.D. Director [facility] # [id number] 5. Colon, rectum, biopsy: -- Large intestinal [...] CONTINUED ON NEXT PAGE DEPARTMENT OF PATHOLOGY, [address] [place] [address] Logan Toro M.D. Director [facility] # [id number] speckled santana-pink irregular to polypoid soft tissue fragments ranging from 0.4 x 0.3 x 0.2 cm to 0.8 x 0.3 x 0.1 cm, which are entirely submitted in one cassette. Signed by and Reported on: Logan Toro MD 12/23 1031 END OF REPORT DEPARTMENT OF PATHOLOGY, [address] [place] [address] Logan Toro M.D. Director [facility] # [id number] 3 SEE RESULT BELOW Name: RUPINDER RIVERS : [address]: Marbella Wakefield MD Acct: [id number] Unit: [id number] AGE: 63 Location: MED [facility]-02 Re07/01/19 Dis: 07/02/19 SEX: F Status: DIS IN SPEC: [id number] JOSE: 07/01/19- SUBM DR: Edith Castaneda MD REQ: [id number] RECD: 07/01/19 STATUS: JOHAN LANCASTER DR: Js [...] CONTINUED ON NEXT PAGE DEPARTMENT OF PATHOLOGY, [address] [place] [address] Logan Toro M.D. Director [facility] # [id number] RUN DATE: 07/03/19 [facility] LAB LIVE PAGE 2 Patient: RUPINDER RIVERS Maya [id number] (Continued) GROSS DESCRIPTION (Continued) Signed by and Reported on: Yoly Garcia MD 07/03/19 1340 END OF REPORT DEPARTMENT OF PATHOLOGY, [address] [place] [address] Logan Toro M.D. Director [facility] # [id number] 4 Because ethnic data is not always readily [...] 15-29 5 Kidney failure <15 (or dialysis) 5 Standard intensity warfarin therapeutic range: 2.0-3.0 High intensity warfarin therapeutic range: 2.5-3.5 Procedures Date Code Description Status 09/30/2019 94098 Moderate Sedation Services; Same Phys Each Additional Completed 15 Mins 09/30/2019 91923 Moderate Sedation Services; Same Phys Each Additional Completed 15 Mins 09/30/2019 95984 Moderate Sedation Services; Same Phys Each Additional Completed 15 Mins 09/30/2019 49177 Moderate Sedation Services; Same Phys Intl 15 Mins; PT Completed >= 5 Years 09/30/2019 31201 Colonscopy+Biopsy Completed 09/30/2019 97393 EGD+Biopsy Single Or Multiple Completed 07/01/201929586 Moderate Sedation Services; Same Phys Each Additional Completed 15 Mins 07/01/2019 22399 Moderate Sedation Services; Same Phys Each Additional Completed 15 Mins 07/01/2019 52955 Moderate Sedation Services; Same Phys Each Additional Completed 15 Mins 07/01/2019 88366 Moderate Sedation Services; Same Phys Intl 15 Mins; PT Completed >= 5 Years 07/01/2019 04856 Colonoscopy W/ Snare RM Of Polyp/Tumor/Lesion Completed 07/01/2019 80434 Colonscopy+Biopsy Completed 01/02/2006 93743285 Colonoscopy Completed Medical Devices Description No Information Available Encounters Type Date Location Provider Dx Diagnosis Office Visit 08/25/2019 [facility] Edith R10.13 Epigastric pain 11:[facility] MD R68.81 Early satiety R93.3 Abnormal findings on dx imaging of prt digestive tract Z12.11 Encounter for screening for malignant neoplasm of colon Z86.010 Personal history of colonic polyps Assessments Date Code Description Provider 11/06/2019 K56.609 Unspecified intestinal obstruction, Edith Ta MD unspecified as to partial versus complete obstruction 11/06/2019 K57.30 Diverticulosis of large intestine without Edith Castaneda MD perforation or abscess without bleeding 09/30/2019 R93.3 Abnormal findings on diagnostic imaging of Edith Castaneda MD other parts of digestive tract 09/30/2019 K57.30 Diverticulosis of large intestine without Edith Castaneda MD perforation or abscess without bleeding 09/30/2019 K21.9 Gastro-esophageal reflux disease without Edith Castaneda MD esophagitis 08/25/2019 R10.13 Epigastric pain Edith Ta MD [...] Edith Ta MD Plan of Treatment Future Appointment(s):01/26/2020 8:00 am - Edith [facility]11/06/2019 - Edith Ta MDK56.609 Unspecified intestinal obstruction, unspecified as to partial versus complete jklqdyribdeN08.30 Diverticulosis of large intestine without perforation or abscess without bleeding Functional Status Description No Information Available Mental Status Description No Information Available Referrals Description No Information Available
--- OUTSIDE RECORDS SUMMARY | 2019-11-20 12:14 | XMS REPORT | Continuity of Care Document ---
:1955 External Reference #:[id number] Author Name Roopa Davenport MD (transmitted by agent of provider Toya Moreira) Address [address] [facility], [place] [address] Care Team Providers Name Role Phone Gary Mehta III, MD - Internal Care Team Information Diagnostic Radiologist [phone] Medicine Hemanth Kerr MD - Surgery Care Team Information Diagnostic Radiologist [phone] Edith Ta M.D. - Single Care Team Information Diagnostic Radiologist Specialty Problems Active Problems Provider Date Benign [...] (10 or fewer cigarettes/day) Smoking Status Reviewed: 11/16/19 Light tobacco smoker (10 or fewer cigarettes/day) Exercise Exercises regularly walks daily Type/Frequency Allergies, Adverse Reactions, Alerts Active Allergies Reaction Severity Comments Date Penicillins 01/05/2009 Medications Active Medications SIG Qnty Indications Ordering Date Provider Neomycin Sulfate 2 tabs by mouth at 6tabs Roopa Davenport MD 11/16/2019 1pm,2pm and 11pm on 500mg Tablets the day before surgery Metronidazole 1 pill by mouth at 3tabs Roopa Davenport MD 11/16/2019 500mg 1pm, 2pm and 11pm Tablets the day before the surgery [id number]-[id number]/Electrolyte take according to 4000ml Roopa Davenport MD 11/16/2019 s your physicians 236gm Solution Rec instructions the day before your procedure as directed. Polyethylene Glycol Every Day 30units Unknown 11/09/2019 3350 3350NF Powder Docusate Sodium Bedtime 30caps Unknown 11/09/2019 100mg Capsules Milk Of Magnesia Every Day 1units Unknown 11/09/2019 1200mg/15ML Suspension Omeprazole Magnesium Twice Daily Unknown 11/06/2019 20.6(20Base) mg Capsules Omeprazole 1 by mouth bid (per Gary Olivarez 10/23/2019 20mg Gastro) Brennon Mehta Tablets Ibuprofen 200 Q6H Unknown 09/21/2019 200mg Tablets Atorvastatin Calcium Take 1 Tablet Daily 90tabs E78.0 Gary Olivarez 08/07/2016 Brennon Mehta 20mg Tablets Amlodipine Besylate Take 1 Tablet Daily 90tabs Gary Olivarez 07/20/2010 Brennon Mehta 10mg Tablets Vitamin B-12 1 by mouth every Unknown 1000mcg day Tablets Vitamin D-1000 1 by mouth every Unknown Maximum Strength day 25mcg (1000 Ut) Tablets History Medications Amlodipine Besylate Before Meals Unknown 11/06/2019 - Unknown 5mg Tablets Omeprazole 1 by mouth every 90caps Gary Mehta, 10/23/2019 - 20mg Capsules DR todd Willett 10/23/2019 Cipro 1 by mouth twice 20tabs Gary Mehta, 07/02/2019 - 500mg Tablets a day M.D. 07/13/2019 Calcium Carbonate take 1 tablet Gary Mehta, 07/02/2019 - 500mg every 4 hours as M.D. 07/13/2019 Chewtabs needed for gas Metronidazole one tablet by 21tabs Gary Mehta, 07/02/2019 - Unknown 500mg Tablets mouth 3 times M.D. daily for 7 days Ciprofloxacin HCL Every 12 Hours 12tabs Unknown 07/02/2019 - 500mg 09/21/2019 Tablets Immunizations CPT Code Status Date Vaccine Reaction Lot # [id number] Given 10/16/2019 Influenza Virus Vaccine, shot tolerated well, [id number] Quadrivalent, Split, no immediate reaction Preservative Free 78835 Given 10/10/2018 Influenza Virus Vaccine, [id number] Quadrivalent, Split, Preservative Free 70624 Given 08/08/2017 Influenza Virus Vaccine, given IM in L [id number] Quadrivalent, Split, delt,dora.well,site Preservative Free unremarkable,bandaid applied 70534 Given 08/07/2016 Influenza Virus Vaccine, [id number] Quadrivalent, Split, Preservative Free 83256 Given 07/28/2015 Influenza Virus Vaccine, [id number] Quadrivalent, Split, Preservative Free 80561 Given 07/27/2014 Influenza Virus Vaccine, [id number] Quadrivalent, Split, Preservative Free 14415 Given 07/27/2014 Pneumococcal Conjugate [id number] Vaccine 13 Valent For Intramuscular Use Q2037 Given 08/09/2012 Fluvirin Im 3Yrs And Older [id number] 16304 Given 07/19/2011 Influenza Virus 3Yrs & Over 08985 Given 12/20/2009 Tdap - [id number] Tetanus/Diptheria/Acellula r Pertussis Vital Signs Date Vital Result Comment 11/16/2019 1:58pm Height 63 inches 5'3" Weight 183.00 lb Heart Rate 68 /min BP Systolic Sitting 120 mmHg BP Diastolic Sitting 78 mmHg Respiratory Rate 16 /min Body Temperature 97.7 F BMI (Body Mass Index) 32.4 kg/m2 10/16/2019 9:12am Height 63 inches 5'3" Weight 183.00 lb Heart Rate 42 /min BP Systolic Sitting 138 mmHg BP Diastolic Sitting 83 mmHg Body Temperature 97.6 F BMI (Body Mass Index) 32.4 kg/m2 Results Test Acquired Date Facility Test Result H/L Range Note CBC Auto 11/06/2019 [facility] White Blood 9.9 10^3/uL Normal 3.5-10.[address] [place] [address] [phone] Red Blood Count 4.90 10^6/uL High 3.70-4.87 Hemoglobin 13.3 g/dL Normal 12.0-16.0 Hematocrit 40 % Normal 35-47 Mean Corpuscular Volume 81 fL Normal 80-97 Mean Corpuscular Hemoglobin 27 pg Normal 27-31 Mean Corpuscular HGB Conc 34 g/dL Normal 31-36 Red Cell Distribution Width 15 % Normal 10-15 Platelet Count 305 10^3/uL Normal 150-450 Mean Platelet Volume 7.8 fL Normal 7.4-10.4 Abs Neutrophils 8.0 10^3/uL High 1.5-7.7 Abs Lymphocytes 1.2 10^3/uL Normal 1.0-4.8 Abs Monocytes 0.7 10^3/uL Normal 0-0.8 Abs Eosinophils 0.0 10^3/uL Normal 0-0.6 Abs Basophils 0.0 10^3/uL Normal 0-0.2 Abs Nucleated RBC 0.0 10^3/uL Granulocyte % 80.4 % Lymphocyte % 12.2 % Monocyte % 7.0 % Eosinophil % 0.0 % Basophil % 0.4 % Nucleated Red Blood Cells % 0.1 Comp Metabolic Panel 11/06/2019 [facility] Sodium 126 mmol/L Low 135-145 [address] [place] [address] [phone] Potassium 4.7 mmol/L Normal 3.5-5.0 Chloride 92 mmol/L Low 101-111 Co2 Carbon Dioxide 27 mmol/L Normal 22-32 Anion Gap 7 mmol/L Normal 2-11 Glucose 127 mg/dL High 70-100 Blood Urea Nitrogen 18 mg/dL Normal 6-24 Creatinine 0.90 mg/dL Normal 0.51-0.95 BUN/Creatinine Ratio 20.0 Normal 8-20 Calcium 9.4 mg/dL Normal 8.6-10.3 Total Protein 7.3 g/dL Normal 6.4-8.9 Albumin 4.4 g/dL Normal 3.2-5.2 Globulin 2.9 g/dL Normal 2-4 Albumin/Globulin Ratio 1.5 Normal 1-3 Total Bilirubin 0.40 mg/dL Normal 0.2-1.0 Alkaline Phosphatase 75 U/L Normal 34-104 Alt 18 U/L Normal 7-52 Ast 19 U/L Normal 13-39 Egfr Non- 63.2 >60 Egfr 76.5 >60 1 Laboratory test 11/06/2019 [facility] Lipase 15 U/L Normal 11.0-82.0 finding [address] [place] [address] [phone] C Reactive Protein 48.46 mg/L High <8.01 Comp Metabolic 10/10/2019 [facility] Sodium 141 mmol/L Normal 135-145 [address] [place] [address] [phone] Potassium 4.6 mmol/L Normal 3.5-5.0 Chloride 104 [...] Egfr Non- 79.3 >60 Egfr 95.9 >60 3 Lipid Profile 10/10/2019 [facility] Triglycerides 132 mg/dL 4 (Trig/Chol/HDL) [address] [place] [address] [phone] Cholesterol 156 mg/dL 5 HDL Cholesterol 44.1 mg/dL 6 LDL Cholesterol 86 mg/dL 7 Liver 10/10/2019 [facility] Direct 0.10 Normal 0.03-0.[address] Bilirubin mg/[place] [address] [phone] Indirect Bilirubin 0.4 mg/dL Normal 0.3-1.0 Laboratory test 10/10/2019 [facility] Hemoglobin A1c 5.9 % High 4.0-5.[address] (Glyco HGB) [place] [address] [phone] Laboratory test 09/30/2019 [facility] Clotest SEE RESULT [address] [place] [address] [phone] Surgical 09/30/2019 [facility] Surgical SEE RESULT [address] [place] [address] [phone] PDFReport SEE IMAGE Cytology 08/21/2019 [facility] Cytology SEE RESULT BELOW 11 , [address] [place] [address] [phone] PDFReport [id number] <SEE NOTE> Laboratory test 07/01/2019 [facility] Surgical SEE RESULT [address] [place] [address] Order [phone] CBC Auto Diff 06/30/2019 [facility] White Blood 10.4 Normal 3.5-[address] Count 10^3/uL 0.8 [place] [address] [phone] Red Blood Count 5.35 10^6/uL High 3.70-4.87 [...] Blood Cells % 0.0 Comp Metabolic 06/30/2019 [facility] Sodium 136 mmol/L Normal 135-[address] [place] [id number] [phone] Potassium 3.6 mmol/L Normal 3.5-5.0 Chloride 103 [...] Egfr Non- 74.6 >60 Egfr 90.3 >60 14 Laboratory test 06/30/2019 [facility] Magnesium 1.9 mg/dL Normal 1.9-2.7 finding [address] [place] [address] [phone] Amylase 55 U/L Normal 29-103 Lipase 18 U/L Normal 11.0-82.0 C Reactive Protein 14.93 mg/L High <8.01 Inr/Protime 06/30/2019 [facility] Inr 1.00 Normal 0.82-1.09 15 [address] [place] [address] [phone] Laboratory test 06/30/2019 [facility] Partial 39.0 High 26.0- 38.[address] [facility] [place] [address] Time PTT [phone] Urinalysis 06/30/2019 [facility] Urine Color Straw Profile [address] [place] [address] [phone] Urine Appearance Clear Urine Specific [place] 1.023 Normal 1.010-1.030 Urine pH 6.0 Normal 5-9 Urine Urobilinogen Negative Negative Urine Ketones Negative Negative Urine Protein Negative Negative Urine Leukocytes Negative Negative Urine Blood Negative Negative Urine Nitrite Negative Negative Urine Bilirubin Negative Negative Urine Glucose Negative Negative 1 Because ethnic data is not always readily [...] 15-29 5 Kidney failure <15 (or dialysis) 2 FASTING 3 Because ethnic data is not always readily [...] 15-29 5 Kidney failure <15 (or dialysis) 4 Desirable: <150 Borderline High: 150-199 High: 200-499 Very High: >500 5 Desirable: <200 Borderline High: 200-239 High: >239 6 Low: <40 Desirable: 40-60 High: >60 7 Desirable: <100 Near Optimal: 100-129 Borderline High: 130-159 High: 160-189 Very High: >189 8 Therapeutic target for the treatment of diabetes mellitus patients is <7% HBA1C, and in selective patients <6.0%. Please refer to [place] [employer] diabetic care guidelines for further information. 9 SEE RESULT BELOW Name: SILVESTRESONNYRUPINDER R : [address]: Edith Ta MD Acct: [id number] Unit: [id number] AGE: 63 Location: ENDO Re09/30/19 SEX: F Status: REG REF SPEC: [id number] JOSE: 09/30/19 [facility] DR: Edith Ta MD REQ: [id number] RECD: 09/30/19 STATUS: BEN LANCASTER DR: Gary Mehta III, MD _ SOURCE: SERGEY STATON SPDC: ORDERED: Clotest Procedure Result Reported Site Clotest Final 10/01/19 24 ML Clotest Negative * ML - Main Lab . END OF REPORT DEPARTMENT OF PATHOLOGY, [address] [place] [address] Logan Toro M.D. Director [facility] # [id number] 10 SEE RESULT BELOW Name: RUPINDER RIVERS : [address]: Edith Ta MD Acct: [id number] Unit: [id number] AGE: 63 Location: ENDO Re09/30/19 SEX: F Status: DEP REF SPEC: [id number] JOSE: 09/30/19 [facility] DR: Edith Castaneda MD REQ: [id number] RECD: 09/30/19294 STATUS: JOHAN LANCASTER DR: Gary Mehta III, [...] CONTINUED ON NEXT PAGE DEPARTMENT OF PATHOLOGY, [address] [place] [address] Logan Toro M.D. Director [facility] # [id number] 5. Colon, rectum, biopsy: -- Large intestinal [...] CONTINUED ON NEXT PAGE DEPARTMENT OF PATHOLOGY, [address] [place] [address] Logan Toro M.D. Director [facility] # [id number] speckled santana-pink irregular to polypoid soft tissue fragments ranging from 0.4 x 0.3 x 0.2 cm to 0.8 x 0.3 x 0.1 cm, which are entirely submitted in one cassette. Signed by and Reported on: Logan Toro MD 12/23 1031 END OF REPORT DEPARTMENT OF PATHOLOGY, [address] [place] [address] Logan Toro M.D. Director [facility] # [id number] 11 [id number] 12 SEE RESULT BELOW Name: RUPINDER RIVERS : [address]: Susy Bello MD Acct: [id number] Unit: [id number] AGE: 63 Location: [facility] Re08/21/19 SEX: F Status: REG REF SPEC: [id number] JOSE: 08/21/19 [facility] DR: Susy Bello MD REQ: [id number] RECD: 08/21/19 STATUS: JOHAN LANCASTER DR: Gary Mehta III, MD _ ORDERED: TP IMAGE ANALYS, HPV/Thin Prep COMMENTS: [id number] FINAL DIAGNOSIS Negative for Intraepithelial lesion or [...] CONTINUED ON NEXT PAGE DEPARTMENT OF PATHOLOGY, [address] [place] [address] Logan Toro M.D. Director [facility] # [id number] CYTOLOGY PATIENT INFORMATION Patient Information: HPV: High risk HPV RNA testing regardless of pap results. Actual Specimen Date: 08/21/19 LMP If Unknown: 2008 Date of Last Specimen: 03/21/19 Post Menopausal?: Y Signed by and Reported on: Richy KAYLEY Patino(ASCP) [id number] This Pap test was evaluated with the assistance of the ISVSp Test Imaging System. Due to cytologic findings at the carbider microscope, comprehensive manual rescreening by a Fish Warden may be required. The Pap Smear is [...] years. END OF REPORT DEPARTMENT OF PATHOLOGY, [address] [place] [address] Logan Toro M.D. Director [facility] # [id number] 13 SEE RESULT BELOW Name: RUPINDER RIVERS : [address]: Marbella Wakefield MD Acct: [id number] Unit: [id number] AGE: 63 Location: [place] [id number] Re07/01/19 Dis: 07/02/19 SEX: F Status: DIS IN SPEC: [id number] JOSE: 07/01/19- SUBM DR: Edith Castaneda MD REQ: [id number] RECD: 07/01/19 STATUS: JOHAN LANCASTER DR: Js [...] CONTINUED ON NEXT PAGE DEPARTMENT OF PATHOLOGY, [address] [place] [address] Logan Toro M.D. Director [facility] # [id number] RUN DATE: 07/03/19 [facility] LAB LIVE PAGE 2 Patient: RUPINDER RIVERS Maya [id number] (Continued) GROSS DESCRIPTION (Continued) Signed by and Reported on: Yoly Garcia MD 07/03/19 1340 END OF REPORT DEPARTMENT OF PATHOLOGY, [address] [place] [address] Logan Toro M.D. Director [facility] # [id number] 14 Because ethnic data is not always readily [...] 15-29 5 Kidney failure <15 (or dialysis) 15 Standard intensity warfarin therapeutic range: 2.0-3.0 High intensity warfarin therapeutic range: 2.5-3.5 Procedures Date Code Description Status 07/20/2019 43213 EKG Tracing & Interpretation Completed 08/07/2018 [id number] Diabetic Retinal Eye Exam Completed 07/29/2017 02590747 Mammogram Completed 07/26/2016 01562204 Mammogram Completed 02/10/2016 14877739 Colonoscopy Completed 07/25/2015 84889193 Mammogram Completed 06/15/2014 55622543 Mammogram Completed 06/12/2013 40069120 Mammogram Completed 02/04/2012 93417851 Mammogram Completed 01/31/2011 77139819 Mammogram Completed 07/24/2010 01907218 Mammogram Completed 01/10/2010 06770425 Mammogram Completed 02/14/2006 99848336 Colonoscopy Completed Medical Devices Description No Information Available Encounters Type Date Location Provider Dx Diagnosis Office Visit 11/09/2019 [facility] Eva Boucher K56.609 Unsp intestnl obst, 9:13a MD avitia as to partial versus complete obst I10 Essential (primary) hypertension Office Visit 11/09/2019 Surgical Roopa Davenport K56.690 Other partial 7:00a [facility] [place] intestinal obstruction Office Visit 11/08/2019 [facility] K56.609 Unsp intestnl 9:10a Assoc,memo Boucher MD obst, unsp as to Hospitalists partial versus complete obst R93.421 Abnormal radiologic findings on dx imaging of r kidney I10 Essential (primary) hypertension E78.5 Hyperlipidemia, unspecified Office Visit 11/08/2019 Surgical Roopa Davenport MD K56.690 Other partial 7:00a [facility] intestinal obstruction Office Visit 11/07/2019 [facility] K56.609 Unsp intestnl 9:07a memo Russo MD obst, unsp as to Hospitalists partial versus complete obst E87.1 Hypo-osmolality and hyponatremia R93.421 Abnormal radiologic findings on dx imaging of r kidney I10 Essential (primary) hypertension Office Visit 11/07/2019 Surgical Roopa Davenport MD K56.690 Other partial 7:00a [facility] intestinal obstruction Office Visit 11/06/2019 [facility] K56.609 Unsp intestnl 9:04a memo Russo MD obst, unsp as to Hospitalists partial versus complete obst E87.1 Hypo-osmolality and hyponatremia I10 Essential (primary) hypertension Office Visit 11/06/2019 7:00a Surgical Roopa Davenport K56.609 Unsp intestnl [facility] MD santos unsperla as to partial versus complete obst Office Visit 10/16/2019 9:20a [facility] Internal Gary Olivarez Z00.00 [facility] for Medicine - Maynor Mehta M.D. general adult medical exam w/o abnormal findings I10 Essential (primary) hypertension E78.5 Hyperlipidemia, unspecified R73.01 Impaired fasting glucose K21.9 Gastro-esophageal reflux disease without esophagitis Z23 Encounter for immunization Office Visit 07/14/2019 [facility] Internal Gary Olivarez K52.9 Noninfective 1:00p Medicine - Maynor Mehta M.D. gastroenteritis and colitis, unspecified Office Visit 07/02/2019 [facility] Js Osorio K57.32 Dvtrcli of lg int 10:08a memo Russo [place], w/o perforation or Hospitalists M.DDarya,FACP abscess w/o bleeding I10 Essential (primary) hypertension E78.5 Hyperlipidemia, unspecified Z72.0 Tobacco use Office Visit 07/01/2019 [facility] Sheryl Chacon K52.9 Noninfective 10:08a memo Russo MD gastroenteritis and Hospitalists colitis, unspecified I10 Essential (primary) hypertension E78.5 Hyperlipidemia, unspecified Z72.0 Tobacco use Assessments Date Code Description Provider 11/16/2019 K56.609 Unspecified intestinal obstruction, Roopa Davenport MD unspecified as to partial versus complete obstruction 11/09/2019 K56.609 Unspecified intestinal obstruction, Eva Boucher MD unspecified as to partial versus complete obstruction 11/09/2019 I10 Essential (primary) hypertension Eva Boucher MD 11/09/2019 K56.690 Other partial intestinal obstruction Roopa Davenport MD 11/08/2019 K56.609 Unspecified intestinal obstruction, Eva Boucher MD unspecified as to partial versus complete obstruction 11/08/2019 R93.421 Abnormal radiologic findings on Eva Boucher MD diagnostic imaging of right kidney 11/08/2019 K56.690 Other partial intestinal obstruction Roopa Davenport MD 11/08/2019 I10 Essential (primary) hypertension Eva Boucher MD 11/08/2019 E78.5 Hyperlipidemia, unspecified Eva Boucher MD 11/07/2019 K56.609 Unspecified intestinal obstruction, Kathy Dave MD unspecified as to partial versus complete obstruction 11/07/2019 E87.1 Hypo-osmolality and hyponatremia Kathy Dave MD 11/07/2019 K56.690 Other partial intestinal obstruction Roopa Davenport MD 11/07/2019 R93.421 Abnormal radiologic findings on Kathy Dave MD diagnostic imaging of right kidney 11/07/2019 I10 Essential (primary) hypertension Kathy Dave MD 11/06/2019 K56.609 Unspecified intestinal obstruction, Kathy Dave MD unspecified as to partial versus complete obstruction 11/06/2019 E87.1 Hypo-osmolality and hyponatremia Kathy Dave MD 11/06/2019 K56.609 Unspecified intestinal obstruction, Roopa Davenport MD unspecified as to partial versus complete obstruction 11/06/2019 I10 Essential (primary) hypertension Kathy Dave MD 10/16/2019 Z00.00 Encounter for general adult medical Gary Mehta M.D. examination without abnormal findings 10/16/2019 I10 Essential (primary) hypertension Gary Mehta M.D. 10/16/2019 E78.5 Hyperlipidemia, unspecified Gary Mehta M.D. 10/16/2019 R73.01 Impaired fasting glucose Gary Mehta M.D. 10/16/2019 K21.9 Gastro-esophageal reflux disease Gary Mehta M.D. without esophagitis 10/16/2019 Z23 Encounter for immunization Gary Mehta M.D. 07/20/2019 Z01.810 Encounter for preprocedural Nurse Visit A cardiovascular examination 07/20/2019 I49.3 Ventricular premature depolarization Nurse Visit A 07/14/2019 K52.9 Noninfective gastroenteritis and Gary Mehta M.D. colitis, unspecified 07/02/2019 K57.32 Diverticulitis of large intestine Js Wakefield M.D., [facility] without perforation or abscess without bleeding 07/02/2019 I10 Essential (primary) hypertension Js Wakefield M.D[facility] 07/02/2019 E78.5 Hyperlipidemia, unspecified Js Wakefield M.D.,[facility] 07/02/2019 Z72.0 Tobacco use Js Wakefield M.D.,[facility] 07/01/2019 K52.9 Noninfective gastroenteritis and Sheryl Chacon MD colitis, unspecified 07/01/2019 I10 Essential (primary) hypertension Sheryl Chacon MD 07/01/2019 E78.5 Hyperlipidemia, unspecified Sheryl Chacon MD 07/01/2019 Z72.0 Tobacco use Sheryl Chacon MD Plan of Treatment Future Appointment(s):11/24/2019 4:20 pm - Gary Mehta M.D. at [facility] Internal Medicine - [facility]12/03/2019 10:00 am - Clarke Santiago MD, FACS at [facility]12/03/2019 10:00 am - Roopa Davenport MD at [facility]04/19/2020 9:00 am - Gary Mehta M.D. at [facility] Internal Medicine - [facility]11/16/2019 - Roopa Davenport MDK56.609 Unspecified intestinal obstruction, unspecified as to partial versus complete obstructionFollow up:We will schedule you for a laparoscopic, possible open sigmoidectomy. Please see me 2 weeks after surgery for a post operative visit. We will send the prescriptions for the bowel prep to your pharmacy. Functional Status Description No Information Available Mental Status Description No Information Available Referrals Refer to Reason for Referral Status Appt Date Edith Ta M.D. [facility] for abd pain sx; ? Closed 08/25 colitis vs diverticulitis [address] [place] [id number] [phone]
[2019-11-20 12:49] LABS: Hematocrit 42 % (35-47); Hemoglobin 13.6 g/dL (12.0-16.0); Mean Corpuscular HGB Conc 33 g/dL (31-36); Mean Corpuscular Hemoglobin 27 pg (27-31); Mean Corpuscular Volume 81 fL (80-97); Mean Platelet Volume 7.8 fL (7.4-10.4); Platelet Count 372 10^3/uL (150-450); Red Blood Count 5.14 10^6 /uL (3.70-4.87); Red Cell Distribution Width 14 % (10-15); White Blood Count 8.1 10^3/uL (3.5-10.8)
[2019-11-20 13:01] LABS: ABS Lymphocytes 1.4 10^3/ul (1.0-4.8); ABS Monocytes 0.6 10^3/ul (0-0.8); ABS Neutrophils 5.9 10^3/ul (1.5-7.7); Eosinophil % 0.4 %; Lymphocyte % 17.8 %
[2019-11-20 13:13] LABS: Albumin 4.4 g/dL (3.2-5.2); Albumin/Globulin Ratio 1.5 (1-3); BUN/Creatinine Ratio 9.2 (8-20); Calcium 10.1 mg/dL (8.6-10.3); EGFR African American 79.3 (>60); EGFR Non-African American 65.6 (>60); Globulin 2.9 g/dL (2-4); Potassium 4.1 mmol/L (3.5-5.0); Total Bilirubin 0.4 mg/dL (0.2-1.0); Total Protein 7.3 g/dL (6.4-8.9)
--- NOTE | 2019-11-20 14:01 | ED ---
Abdominal Pain/Female - HPI Summary HPI Summary: Patient is a 64 y/o F presenting to the ED for a chief complaint of diffuse abdominal pain that began on the night of 11/19/19. Patient last had a bowel movement on 11/20/19 and last ate on the morning of 11/20/19. She notes nausea, vomiting, and fatigue. Patient denies fever, chills, urinary burning, or dysuria. Her abdominal pain initially began in June 2019 after which she had a colonoscopy, being told to eat a high fiber diet. In September 2019, she was told she had a narrowing of her colon after another colonoscopy. She has a [place] [facility] [place]. Patient takes milk of magnesia and Miralax for her symptoms. PMHx is significant for HTN and HLD. She has an upcoming colon resection scheduled for 12/03/[address] Davenport. Allergies noted. Medications reviewed. - History of Current Complaint Chief Complaint: EDAbdPain Stated Complaint: VOMITING , Time Seen by Provider: 11/20/19 13:46 Hx Obtained From: Patient Onset/Duration: Sudden Onset, Still Present Timing: Constant Severity Initially: Mild Severity Currently: Mild Pain Intensity: 0 Pain Scale Used: 0-10 Numeric Location: Diffuse Radiates: No Aggravating Factor(s): Nothing Alleviating Factor(s): Nothing Associated Signs and Symptoms: Positive: Nausea, Vomiting. Negative: Fever, Urinary Symptoms - Negative dysuria or urinary burning Allergies/Adverse Reactions: Allergies Allergy/AdvReac Type Severity Reaction Status Date / Time Penicillins Allergy Severe Hives Verified 11/20/19 12:12 Home Medications: Home Medications Cholecalciferol TAB* [Vitamin D TAB*] 1,000 unit PO DAILY 11/20/19 [History Confirmed 11/20/19] Cyanocobalamin TAB* [Vitamin B12 TAB*] 500 mcg PO DAILY 11/20/19 [History Confirmed 11/20/19] Docusate CAP* [Colace Cap*] 100 mg PO BEDTIME 11/20/19 [History Confirmed ] Multivitamins/Minerals TAB* [Theragran/minerals TAB*] 1 tab PO DAILY 11/20/19 [ History Confirmed 11/20/19] PMH/Surg Hx/FS Hx/Imm Hx Previously Healthy: Yes Endocrine/Hematology History: Denies: Hx Diabetes Cardiovascular History: Reports: Hx Hypercholesterolemia, Hx Hypertension - med Denies: Hx Congestive Heart Failure, Hx Pacemaker/ICD Respiratory History: Denies: Hx Asthma GI History: Reports: Other GI Disorders - SBO History: Reports: Other Problems/Disorders - right ureter reconstruction Denies: Hx Renal Disease Musculoskeletal History: Reports: Other Musculoskeletal History - toar rotator cuff August 05, 2019 Sensory History: Reports: Hx Contacts or Glasses Denies: Hx Legally Blind, Hx Deafness, Hx Hearing Aid Opthamlomology History: Reports: Hx Contacts or Glasses Denies: Hx Legally Blind EENT History: Denies: Hx Deafness Psychiatric History: Denies: Hx Panic Disorder - Cancer History Hx Chemotherapy: No Hx Radiation Therapy: No - Surgical History Surgical History: Yes Surgery Procedure, Year, and Place: appendix, right ovary and tube, ureter recontruction right, LEFT KNEE ARTHROSCOPY 20 + YEARS. AGO ; rotator cuff surgery aug, 2019 , tubal Infectious Disease History: No Infectious Disease History: Denies: Hx Clostridium Difficile, Hx Hepatitis, Hx Human Immunodeficiency Virus (HIV), Hx of Known/Suspected MRSA, Hx Shingles, Hx Tuberculosis, Hx Known/ Suspected VRE, Hx Known/Suspected VRSA, History Other Infectious Disease, Traveled Outside the [place] in Last 30 Days - Family History Known Family History: Positive: Cardiac Disease, Hypertension, Other - ARTHRITIS - Social History Occupation: Employed Full-time Lives: With Family Alcohol Use: Occasionally Hx Substance Use: No Substance Use Type: Reports: None Hx Tobacco Use: Yes Smoking Status (MU): Light Every Day Tobacco Smoker Review of Systems Positive: Fatigue. Negative: Fever, Chills Positive: Abdominal Pain - Diffuse, Vomiting, Nausea Negative: burning - Urinary, dysuria All Other Systems Reviewed And Are Negative: Yes Physical Exam - Summary Physical Exam Summary: Constitutional: Well-developed, Well-nourished, Alert. (-) Distressed Skin: Warm, Dry HENT: Normocephalic; Atraumatic Eyes: Conjunctiva normal Neck: Musculoskeletal ROM normal neck. (-) JVD, (-) Stridor, (-) Tracheal deviation Cardio: Rhythm regular, rate normal, Heart sounds normal; Intact distal pulses; Radial pulses are 2+ and symmetric. (-) Murmur Pulmonary/Chest wall: Effort normal. (-) Respiratory distress, (-) Wheezes, (-) Rales Abd: Soft, (-) Distension, (-) Guarding, (-) Rebound. LLQ tenderness. Musculoskeletal: (-) Edema Lymph: (-) Cervical adenopathy Neuro: Alert, Oriented x3 Psych: Mood and affect Normal Triage Information Reviewed: Yes Vital Signs On Initial Exam: Initial Vitals Temp Pulse Resp BP Pulse Ox 97.4 F 85 16 138/99 95 11/20/19 12:09 11/20/19 12:09 11/20/19 12:09 11/20/19 12:09 11/20/19 12:09 Vital Signs Reviewed: Yes Procedures - Sedation Patient Received Moderate/Deep Sedation with Procedure: No Diagnostics - Vital Signs Vital Signs Temp Pulse Resp BP Pulse Ox 11/20/19 12:09 97.4 F 85 16 138/99 95 - Laboratory Lab Results: Lab Results 11/20/19 11/20/19 Range/Units 12:31 12:35 WBC 8.1 (3.5-10.8) 10^3/uL RBC 5.14 H (3.70-4.87) 10^6 /uL Hgb 13.6 (12.0-16.0) g/dL Hct 42 (35-47) % MCV 81 (80-97) fL MCH 27 (27-31) pg MCHC 33 (31-36) g/dL RDW 14 (10-15) % Plt Count 372 (150-450) 10^3/uL MPV 7.8 (7.4-10.4) fL Neut % (Auto) 73.9 % Lymph % (Auto) 17.8 % [place] % (Auto) 7.4 % Eos % (Auto) 0.4 % Baso % (Auto) 0.5 % Absolute Neuts (auto) 5.9 (1.5-7.7) 10^3/ul Absolute Lymphs (auto) 1.4 (1.0-4.8) 10^3/ul Absolute Monos (auto) 0.6 (0-0.8) 10^3/ul Absolute Eos (auto) 0.0 (0-0.6) 10^3/ul Absolute Basos (auto) 0.0 (0-0.2) 10^3/ul Absolute Nucleated RBC 0.0 10^3/ul Nucleated RBC % 0.0 Sodium 139 (135-145) mmol/L Potassium 4.1 (3.5-5.0) mmol/L Chloride 100 L (101-111) mmol/L Carbon Dioxide 31 (22-32) mmol/L Anion Gap 8 (2-11) mmol/L BUN 8 (6-24) mg/dL Creatinine 0.87 (0.51-0.95) mg/dL Est GFR ( Amer) 79.3 (>60) Est GFR (Non-Af Amer) 65.6 (>60) BUN/Creatinine Ratio 9.2 (8-20) Glucose 121 H (70-100) mg/dL Calcium 10.1 (8.6-10.3) mg/dL Total Bilirubin 0.40 (0.2-1.0) mg/dL AST 18 (13-39) U/L ALT 19 (7-52) U/L Alkaline Phosphatase 76 (34-104) U/L Total Protein 7.3 (6.4-8.9) g/dL Albumin 4.4 (3.2-5.2) g/dL Globulin 2.9 (2-4) g/dL Albumin/Globulin Ratio 1.5 (1-3) Lipase 19 (11.0-82.0) U/L Result Diagrams: 11/20/19 12:35 11/20/19 12:31 Lab Statement: Any lab studies that have been ordered have been reviewed, and results considered in the medical decision making process. - Radiology Abdomen X-ray Radiology Interpretation Completed By: Radiologist Summary of Radiographic Findings: Abdomen X-ray IMPRESSION: THERE HAS BEEN INTERVAL DEVELOPMENT OF DISTENTION AND MILD DILATATION OF THE COLON, CONCERNING FOR RECURRENCE OF THE LARGE BOWEL OBSTRUCTION NOTED ON NOVEMBER 07, 2019. Reviewed by Dr. Piedra. Abdominal Pain Fem Course/Dx - Course Course Of Treatment: Patient is here 3 currents of her abdominal pain and vomiting. Patient has a known colonic stricture with multiple admissions in the past. Patient scheduled to have surgery on that in 13 days. Patient had blood performed which was grossly unremarkable. Patient x-ray which showed a large bowel traction. Surgery was called and recommended admission to the hospital - Diagnoses Provider Diagnoses: Vomiting, Abdominal pain, Large bowel obstruction - Provider Notifications Discussed Care Of Patient With: Branden Lanza - At 14:14, Dr. Lanza recommends getting plain films and CT scan. If the patient wants her surgery on Saturday, she will need to be admitted. At 15:55, Dr. Lanza agrees to [place] the [place] [facility] Time Discussed With Above Provider: 14:14 Instructed by Provider To: Admit As Inpatient Discharge ED - Sign-Out/Discharge Documenting (check all that apply): Patient Departure - Admit - Discharge Plan Condition: Stable Disposition: ADMITTED TO [facility] - Billing Disposition and Condition Condition: STABLE Disposition: Admitted to [facility] - Attestation Statements Document Initiated by Lioe: Yes Documenting Scribe: Marli Grijalva Provider For Whom Anne-Marie is Documenting (Include Credential): Blaise Piedra MD Scribe Attestation: Marli Arnold, scribed for Blaise Piedra MD on 11/20/19 at 1735. Scribe Documentation Reviewed: Yes Provider Attestation: The documentation as recorded by the Marli tang accurately reflects the service I personally performed and the decisions made by , Blaise Piedra MD Status of Scribe Document: Viewed
[2019-11-20] MEDS ORDERED: Ondansetron ODT TAB* 4 MG PO ONE (14:12)
[2019-11-20] MEDS ORDERED: Dicyclomine CAP* 10 MG PO ONE (14:23)
[2019-11-20] MEDS ORDERED: Ketorolac INJ* 30 MG/ML 1 ML VIAL IV PRN (15:35)
[2019-11-20] MEDS ORDERED: Ondansetron INJ* 2 MG/ML VIAL IV PRN (15:35)
--- NOTE | 2019-11-20 16:16 | HP ---
H&P (Free Text) History and Physical: Subjective CC: ABD pain since last night HPI: 64 yo F presenting for abdominal pain that started last night. Reports she was feeling well and a general abdominal discomfort started and has not stopped since. Pain is poorly localized in abdomen and relieved only a little with rest. Confirms nausea, vomiting, decreased appetite and weakness. Last PO intake was applesauce last night, and was subsequently vomited out. Denies chest pain, SOB, fever, chills, dysuria. Last BM was this morning and loose; states BMs have been loose since taking miralax. She is scheduled for sigmoid colectomy next week with Dr. Davenport for a history of obstruction. Objective: Home Medications Medication Instructions Recorded Confirmed Type Atorvastatin* [Lipitor 20 MG*] 20 mg PO DAILY 07/07/17 11/20/19 History Omeprazole CAP (NF) [Prilosec CAP* 20 mg PO BID 11/06/19 11/20/19 History 20 MG] amLODIPine TAB* [Norvasc 5 mg TAB*] 10 mg PO DAILY 11/06/19 11/20/19 History Cholecalciferol TAB* [Vitamin D 1,000 unit PO DAILY 11/20/19 11/20/19 History TAB*] Cyanocobalamin TAB* [Vitamin B12 500 mcg PO DAILY 11/20/19 11/20/19 History TAB*] Docusate CAP* [Colace Cap*] 100 mg PO BEDTIME 11/20/19 11/20/19 History Multivitamins/Minerals TAB* 1 tab PO DAILY 11/20/19 11/20/19 History [Theragran/minerals TAB*] Allergies Allergy/AdvReac Type Severity Reaction Status Date / Time Penicillins Allergy Severe Hives Verified 11/20/19 12:12 Surgical history: R ureter surgery, appendectomy, R oophorectomy and salpingectomy. 2 knee surgeries. No complications for any procedure. Family History: Negative for bleeding or clotting disorders, as well as CA. Social history: Current 1/4 ppd smoker of 40 yrs. No alcohol or drug use otherwise. Patient Problems Problem Status Onset Code Abdominal pain Acute R10.9 Colonic obstruction Acute K56.609 DVT prophylaxis Acute Z29.9 HLD (hyperlipidemia) Acute E78.5 HTN (hypertension) Acute I10 Hyponatremia Acute E87.1 Renal cyst Acute N28.1 Review of systems: 12 point ROS negative except as otherwise stated in HPI. Allergies as stated above. Imaging: ABD XR- suggestive of large bowel obstruction PEX: General: Alert and in no acute distress Integumentary: No rashes, lesions, or jaundice. HEENT: Oropharynx clear Heart: RRR, no MRG Lungs: CTAB, no WRR ABD: BS present. Soft, nondistended. Diffusely tender, though mostly at point left of umbilicus. No rebound tenderness. Extremities: Calves soft and nontender. Distal pulses intact bilaterally. Impression and Plan: 64 yo F with ABD pain, likely as the result of large bowel obstruction. Will admit, plan is for colon resection surgery early next week. NPO for now. CT scan.
[2019-11-20] MEDS: Lactated Ringers 1000 ML Bag* 1,000 ML IV SCH (17:50)
[2019-11-20] MEDS: diPHENhydraMINE IV* 50 MG/ML 1 ml VIAL (BENADRYL) IV SCH (20:51)
[2019-11-21] MEDS: Lactated Ringers 1000 ML Bag* 1,000 ML IV SCH ×3 (03:02→18:37)
[2019-11-21 05:57] LABS: ABS Eosinophils 0.1 10^3/ul (0-0.6); ABS Lymphocytes 1.6 10^3/ul (1.0-4.8); ABS Monocytes 0.4 10^3/ul (0-0.8); ABS Neutrophils 2.6 10^3/ul (1.5-7.7); Eosinophil % 2.1 %; Hematocrit 34 % (35-47); Hemoglobin 11.4 g/dL (12.0-16.0); Lymphocyte % 34.4 %; Mean Corpuscular HGB Conc 34 g/dL (31-36); Mean Corpuscular Hemoglobin 27 pg (27-31); Mean Corpuscular Volume 80 fL (80-97); Mean Platelet Volume 7.7 fL (7.4-10.4); Platelet Count 280 10^3/uL (150-450); Red Blood Count 4.25 10^6 /uL (3.70-4.87); Red Cell Distribution Width 14 % (10-15); White Blood Count 4.7 10^3/uL (3.5-10.8)
[2019-11-21 06:13] LABS: BUN/Creatinine Ratio 13.6 (8-20); Calcium 9.1 mg/dL (8.6-10.3); EGFR African American 86.1 (>60); EGFR Non-African American 71.2 (>60); Potassium 3.4 mmol/L (3.5-5.0)
[2019-11-21 10:35] LABS: Urine Appearance Cloudy; Urine Bilirubin Negative (Negative); Urine Blood Negative (Negative); Urine Color Yellow; Urine Glucose Negative (Negative); Urine Ketones Trace (Negative); Urine Nitrite Negative (Negative); Urine Protein Negative (Negative); Urine Specific Gravity 1.011 (1.010-1.030); Urine Urobilinogen Negative (Negative)
--- NOTE | 2019-11-21 12:12 | PN ---
Progress Note - Progress Note Date of Service: 11/21/19 SOAP: Subjective: Pt seen and examined. Doing well. some abdo pain, no nausea, no flatus, but loose BMs Objective: [] Temp Pulse Resp BP Pulse Ox 98.2 F 66 14 116/66 98 11/21/19 11:24 11/21/19 11:24 11/21/19 11:24 11/21/19 11:24 11/21/19 11:24 lungs clear abdo: soft/ mild distension/ minimal tenderness, no rebound Laboratory Last Values WBC 4.7 10^3/uL (3.5-10.8) 11/21/19 05:33 RBC 4.25 10^6 /uL (3.70-4.87) 11/21/19 05:33 Hgb 11.4 g/dL (12.0-16.0) L 11/21/19 05:33 Hct 34 % (35-47) L 11/21/19 05:33 MCV 80 fL (80-97) 11/21/19 05:33 MCH 27 pg (27-31) 11/21/19 05:33 MCHC 34 g/dL (31-36) 11/21/19 05:33 RDW 14 % (10-15) 11/21/19 05:33 Plt Count 280 10^3/uL (150-450) 11/21/19 05:33 MPV 7.7 fL (7.4-10.4) 11/21/19 05:33 Neut % (Auto) 54.8 % 11/21/19 05:33 Lymph % (Auto) 34.4 % 11/21/19 05:33 [place] % (Auto) 8.0 % 11/21/19 05:33 Eos % (Auto) 2.1 % 11/21/19 05:33 Baso % (Auto) 0.7 % 11/21/19 05:33 Absolute Neuts (auto) 2.6 10^3/ul (1.5-7.7) 11/21/19 05:33 Absolute Lymphs (auto) 1.6 10^3/ul (1.0-4.8) 11/21/19 05:33 Absolute Monos (auto) 0.4 10^3/ul (0-0.8) 11/21/19 05:33 Absolute Eos (auto) 0.1 10^3/ul (0-0.6) 11/21/19 05:33 Absolute Basos (auto) 0.0 10^3/ul (0-0.2) 11/21/19 05:33 Absolute Nucleated RBC 0.0 10^3/ul 11/21/19 05:33 Nucleated RBC % 0.0 11/21/19 05:33 Sodium 140 mmol/L (135-145) 11/21/19 05:33 Potassium 3.4 mmol/L (3.5-5.0) L 11/21/19 05:33 Chloride 103 mmol/L (101-111) 11/21/19 05:33 Carbon Dioxide 29 mmol/L (22-32) 11/21/19 05:33 Anion Gap 8 mmol/L (2-11) 11/21/19 05:33 BUN 11 mg/dL (6-24) 11/21/19 05:33 Creatinine 0.81 mg/dL (0.51-0.95) 11/21/19 05:33 Est GFR ( Amer) 86.1 (>60) 11/21/19 05:33 Est GFR (Non-Af Amer) 71.2 (>60) 11/21/19 05:33 BUN/Creatinine Ratio 13.6 (8-20) 11/21/19 05:33 Glucose 91 mg/dL (70-100) 11/21/19 05:33 Calcium 9.1 mg/dL (8.6-10.3) 11/21/19 05:33 Total Bilirubin 0.40 mg/dL (0.2-1.0) 11/20/19 12:31 AST 18 U/L (13-39) 11/20/19 12:31 ALT 19 U/L (7-52) 11/20/19 12:31 Alkaline Phosphatase 76 U/L (34-104) 11/20/19 12:31 Total Protein 7.3 g/dL (6.4-8.9) 11/20/19 12:31 Albumin 4.4 g/dL (3.2-5.2) 11/20/19 12:31 Globulin 2.9 g/dL (2-4) 11/20/19 12:31 Albumin/Globulin Ratio 1.5 (1-3) 11/20/19 12:31 Lipase 19 U/L (11.0-82.0) 11/20/19 12:31 Urine Color Yellow 11/21/19 10:20 Urine Appearance Cloudy 11/21/19 10:20 Urine pH 6.0 (5-9) 11/21/19 10:20 Ur Specific [place] 1.011 (1.010-1.030) 11/21/19 10:20 Urine Protein Negative (Negative) 11/21/19 10:20 Urine Ketones Trace (Negative) A 11/21/19 10:20 Urine Blood Negative (Negative) 11/21/19 10:20 Urine Nitrate Negative (Negative) 11/21/19 10:20 Urine Bilirubin Negative (Negative) 11/21/19 10:20 Urine Urobilinogen Negative (Negative) 11/21/19 10:20 Ur Leukocyte Esterase Negative (Negative) 11/21/19 10:20 Urine Glucose Negative (Negative) 11/21/19 10:20 Urine Ascorbic Acid * (Negative) A 11/21/19 10:20 Assessment: pLBO 2ary to diverticular stricture Plan: IVF ice chips OR saturday
[2019-11-21] MEDS: KCL 10 MEQ/50 ML IVPREMIX* 10 MEQ/50 ML BAG IV SCH ×2 (15:24→17:18)
[2019-11-21] MEDS: diPHENhydraMINE IV* 50 MG/ML 1 ml VIAL (BENADRYL) IV SCH (21:37)
[2019-11-22] MEDS: Lactated Ringers 1000 ML Bag* 1,000 ML IV SCH ×3 (02:36→19:53)
--- NOTE | 2019-11-22 10:53 | PN ---
Progress Note - Progress Note Date of Service: 11/22/19 Note: Surgery Progress Note S: Patient has no pain this morning. She continues to have liquid bowel movements with flatus. She does not have flatus at other times. No nausea or emesis. O: Vital Signs - 24 hr 11/21/19 11/21/19 11/21/19 11:24 15:27 17:00 Temperature 98.2 F 97.7 F Pulse Rate 66 69 Respiratory 14 16 Rate Blood Pressure 116/66 128/74 (mmHg) O2 Sat by Pulse 98 96 Oximetry 11/21/19 11/21/19 11/22/19 19:27 19:35 00:00 Temperature 98 F 97.6 F Pulse Rate 67 76 Respiratory 16 16 18 Rate Blood Pressure 141/71 134/77 (mmHg) O2 Sat by Pulse 95 97 Oximetry 11/22/19 11/22/19 11/22/19 03:50 07:29 08:00 Temperature 97.7 F 97.9 F Pulse Rate 65 80 Respiratory 18 16 16 Rate Blood Pressure 118/61 133/81 (mmHg) O2 Sat by Pulse 96 100 Oximetry Intake & Output 11/21/19 11/22/19 11/22/19 22:59 06:59 14:59 Intake Total 1270 980 Output Total 1300 500 Balance 1270 -320 -500 Intake: IV Fluids 1070 980 LR 970 980 kcl 100 Oral 200 0 Output: Urine 1300 500 Other: Estimated Void Large Small # Bowel Movements 1 1 Estimated Stool Amount Large Small # Voids 1 1 Physical exam: Abdomen- soft, mildly tender in LLQ A/P: 64 F with likely benign diverticular stricture, with partial large bowel obstruction. - Obstruction seems to be clinically resolving. Given that this is the patient' s second episode of partial obstruction in the past month, I discussed with her today that we should perform her sigmoid resection on this admission, rather than wait until 12/03 when we had planned for surgery. She understands this and agrees. I had discussed with her at great length both on her prior admission and in the office that the plan would be a laparoscopic, possible open sigmoidectomy with possible ostomy. She understands that the chance for conversion to open and the chance for an ostomy will be fairly high, given that she is coming in partially obstructed again. She understands that the risks include but are not limited to bleeding, infection, injury to nearby structures (colon, small bowel, ureter, bladder, uterus, spleen requiring possible splenectomy) and the risk for anastomotic leak. She understands the risk for perioperative events as well, including CVA, MO, intraoperative and so forth. We discussed all of this at great length previously. - CLD today - I will start a slow bowel prep tomorrow (golytely and enema)and restart her bowel regimen today. I think it is better for us to monitor her during this period in case she cannot tolerate it. - AXR tomorrow morning - Plan for surgery 11/25
[2019-11-22] MEDS: Bisacodyl EC TAB* 5 MG PO SCH (11:07)
[2019-11-22] MEDS: Magnesium Hydroxide LIQ* 30 ML UDC PO SCH (11:07)
[2019-11-22] MEDS: diPHENhydraMINE IV* 50 MG/ML 1 ml VIAL (BENADRYL) IV SCH (19:53)
[2019-11-23] MEDS: Lactated Ringers 1000 ML Bag* 1,000 ML IV SCH ×3 (03:42→20:04)
[2019-11-23] MEDS: Atorvastatin* 20 MG TAB PO SCH (08:12)
[2019-11-23] MEDS: Bisacodyl EC TAB* 5 MG PO SCH (08:12)
[2019-11-23] MEDS: Magnesium Hydroxide LIQ* 30 ML UDC PO SCH (08:12)
[2019-11-23] MEDS: amLODIPine TAB* 5 MG PO SCH (08:12)
--- NOTE | 2019-11-23 11:27 | PN ---
Progress Note - Progress Note Date of Service: 11/23/19 SOAP: Subjective: Patient states her abdominal pain is minimal and unchanged from yesterday. She is tolerating clear liquids with occasional nausea but no vomiting. Bowel movements are frequent and very loose, but patient denies any hematochezia. Objective: Vital Signs Temp 98.5 F 11/23/19 08:09 Pulse 61 11/23/19 08:09 Resp 12 11/23/19 08:09 BP 134/72 11/23/19 08:09 Pulse Ox 97 11/23/19 08:09 Intake & Output 11/22/19 11/23/19 11/23/19 18:59 06:59 18:59 Intake Total 2020 2760 Output Total 850 600 650 Balance 1170 2160 -650 Intake: IV Fluids 1140 1960 LR 1140 1960 Oral 880 800 Output: Urine 850 600 650 Other: Estimated Void Small Medium Date of Last Bowel 11/22/19 Movement # Bowel Movements 1 1 Estimated Stool Amount Small Medium # Voids 1 Physical Exam: General: Well-appearing female sitting in NAD CV: RRR, no murmurs, rub or gallops Resp.: CTAB Abdomen: Soft. Mildly tender in the LUQ, slightly superior to and lateral to the umbilicus. Positive hyperactive bowel sounds. Laboratory Tests 11/21/19 11/21/19 05:33 05:33 WBC 4.7 RBC 4.25 Hgb 11.4 L Hct 34 L Sodium 140 Potassium 3.4 L Chloride 103 Imaging: AXR: BOWEL: There is a nonobstructive bowel gas pattern. There has been interval resolution of the dilatation of the large bowel loops noted on the previous examination. 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 BONES AND SOFT TISSUES: Degenerative changes are noted. OTHER FINDINGS: The lung bases are clear. There is no subphrenic gas. IMPRESSION: NONOBSTRUCTIVE BOWEL GAS PATTERN. INTERVAL RESOLUTION OF THE LARGE BOWEL DILATATION NOTED ON THE PREVIOUS EXAMINATION. Assessment and Plan: This is a 64 year old woman, HD #4 diagnosed with a benign diverticular stricture and a partial large bowel obstruction. Abdominal XRay demonstrates resolution of previous large bowel obstruction, patient is stable and tolerating current diet well. Slight hypokalemia noted on labs from Saturday, but patient had been receiving KCL, so will check electrolytes tomorrow morning. Continue clear liquid diet as tolerated. Start bowel prep regimen slowly in preparation for sigmoid resection. <Lois Ibarra - Last Filed: 11/23/19 11:49> - Progress Note SOAP: Subjective: []Patient seen with PA student. Objective: [] Assessment: []Agree with assessment. Plan: []Discussed w/ Dr. Davenport. Will begin standard mechanical bowel prep today (over 2 day period), along with TWE today and tomorrow, and standard po abx tomorrow. Labs in a.m. <Luis Gomes - Last Filed: 11/23/19 12:47>
--- NOTE | 2019-11-23 13:27 | PN ---
Progress Note - Progress Note Date of Service: 11/23/19 Note: Surgery Progress Note I saw and examined the patient today. I reviewed her vitals, AXR and agree with plan and assessment in progress note by Isak Gomes. She is stable today and tolerating CLD. Her axr showed resolution of her bowel obstruction. Her physical exam reveals a nondistended abdomen, slightly tender in LLQ. Plan for monitored bowel prep over the next two days with enemas and OR on 11/25 for lap, possible open sigmoid, possible ostomy.
[2019-11-23] MEDS: PEG 3000 GI LAVAGE* 1 GALLON PO SCH (15:47)
[2019-11-23] MEDS: diPHENhydraMINE IV* 50 MG/ML 1 ml VIAL (BENADRYL) IV SCH (21:07)
[2019-11-24 06:50] LABS: BUN/Creatinine Ratio 6.3 (8-20); Calcium 9.1 mg/dL (8.6-10.3); EGFR Non-African American 93.4 (>60); Potassium 3.5 mmol/L (3.5-5.0)
--- NOTE | 2019-11-24 08:30 | PN ---
Progress Note - Progress Note Date of Service: 11/24/19 Note: Subjective: She is feeling well with minimal pain. Some nausea yesterday, but none today. Mild pain in umbilicus that radiates diffusely. Frequent loose bowel movements. No fevers, chills, edema, or SOB. Tolerating oral liquids well. Objective: Vital Signs - 8 hr 11/24/19 11/24/19 04:48 07:35 Temperature 98.2 F 98 F Pulse Rate 66 57 Respiratory 16 17 Rate Blood Pressure 108/58 141/66 (mmHg) O2 Sat by Pulse 97 97 Oximetry Intake and Output Last 24 Hours 11/22/19 11/23/19 11/24/19 11/25/19 06:59 06:59 06:59 06:59 Intake Total 3227 4780 6780 Output Total 1300 1450 3250 Balance 1927 3330 3530 Intake: IV Fluids 3027 3100 2940 LR 2927 3100 2940 kcl 100 Oral 200 1680 3840 Output: Urine 1300 1450 3250 Other: Estimated Void Small Medium Date of Last Bowel 11/22/19 Movement # Bowel Movements 1 1 0 Estimated Stool Amount Large Medium # Voids 1 1 Laboratory Last Values WBC 4.7 10^3/uL (3.5-10.8) 11/21/19 05:33 RBC 4.25 10^6 /uL (3.70-4.87) 11/21/19 05:33 Hgb 11.4 g/dL (12.0-16.0) L 11/21/19 05:33 Hct 34 % (35-47) L 11/21/19 05:33 MCV 80 fL (80-97) 11/21/19 05:33 MCH 27 pg (27-31) 11/21/19 05:33 MCHC 34 g/dL (31-36) 11/21/19 05:33 RDW 14 % (10-15) 11/21/19 05:33 Plt Count 280 10^3/uL (150-450) 11/21/19 05:33 MPV 7.7 fL (7.4-10.4) 11/21/19 05:33 Neut % (Auto) 54.8 % 11/21/19 05:33 Lymph % (Auto) 34.4 % 11/21/19 05:33 [place] % (Auto) 8.0 % 11/21/19 05:33 Eos % (Auto) 2.1 % 11/21/19 05:33 Baso % (Auto) 0.7 % 11/21/19 05:33 Absolute Neuts (auto) 2.6 10^3/ul (1.5-7.7) 11/21/19 05:33 Absolute Lymphs (auto) 1.6 10^3/ul (1.0-4.8) 11/21/19 05:33 Absolute Monos (auto) 0.4 10^3/ul (0-0.8) 11/21/19 05:33 Absolute Eos (auto) 0.1 10^3/ul (0-0.6) 11/21/19 05:33 Absolute Basos (auto) 0.0 10^3/ul (0-0.2) 11/21/19 05:33 Absolute Nucleated RBC 0.0 10^3/ul 11/21/19 05:33 Nucleated RBC % 0.0 11/21/19 05:33 Sodium 143 mmol/L (135-145) 11/24/19 06:12 Potassium 3.5 mmol/L (3.5-5.0) 11/24/19 06:12 Chloride 106 mmol/L (101-111) 11/24/19 06:12 Carbon Dioxide 29 mmol/L (22-32) 11/24/19 06:12 Anion Gap 8 mmol/L (2-11) 11/24/19 06:12 BUN 4 mg/dL (6-24) L 11/24/19 06:12 Creatinine 0.64 mg/dL (0.51-0.95) 11/24/19 06:12 Est GFR ( Amer) 113.0 (>60) 11/24/19 06:12 Est GFR (Non-Af Amer) 93.4 (>60) 11/24/19 06:12 BUN/Creatinine Ratio 6.3 (8-20) L 11/24/19 06:12 Glucose 84 mg/dL (70-100) 11/24/19 06:12 Calcium 9.1 mg/dL (8.6-10.3) 11/24/19 06:12 Total Bilirubin 0.40 mg/dL (0.2-1.0) 11/20/19 12:31 AST 18 U/L (13-39) 11/20/19 12:31 ALT 19 U/L (7-52) 11/20/19 12:31 Alkaline Phosphatase 76 U/L (34-104) 11/20/19 12:31 Total Protein 7.3 g/dL (6.4-8.9) 11/20/19 12:31 Albumin 4.4 g/dL (3.2-5.2) 11/20/19 12:31 Globulin 2.9 g/dL (2-4) 11/20/19 12:31 Albumin/Globulin Ratio 1.5 (1-3) 11/20/19 12:31 Lipase 19 U/L (11.0-82.0) 11/20/19 12:31 Urine Color Yellow 11/21/19 10:20 Urine Appearance Cloudy 11/21/19 10:20 Urine pH 6.0 (5-9) 11/21/19 10:20 Ur Specific [place] 1.011 (1.010-1.030) 11/21/19 10:20 Urine Protein Negative (Negative) 11/21/19 10:20 Urine Ketones Trace (Negative) A 11/21/19 10:20 Urine Blood Negative (Negative) 11/21/19 10:20 Urine Nitrate Negative (Negative) 11/21/19 10:20 Urine Bilirubin Negative (Negative) 11/21/19 10:20 Urine Urobilinogen Negative (Negative) 11/21/19 10:20 Ur Leukocyte Esterase Negative (Negative) 11/21/19 10:20 Urine Glucose Negative (Negative) 11/21/19 10:20 Urine Ascorbic Acid * (Negative) A 11/21/19 10:20 Blood Type O Negative 11/24/19 06:12 Antibody Screen Negative 11/24/19 06:12 PEX: General: Alert and in NAD or discomfort Integumentary: No rashes or jaundice HEENT: oropharynx clear Heart: RRR. no MRG Lungs: CTAB. no WRR ABD: + Bowel sounds. Soft, nondistended. Mild tenderness in epigastrium, no rebound or guarding. Extremities: Calves nontender. No edema. Distal pulses intact bilaterally. Assessment and plan: 64 yo woman with a likely resolving partial large bowel obstruction. Plan is for OR tomorrow. Undergoing 2 day bowel prep. NPO at midnight tonight. Labs tomorrow morning. Potassium level has now increased to normal range.
[2019-11-24] MEDS: Atorvastatin* 20 MG TAB PO SCH (09:52)
[2019-11-24] MEDS: amLODIPine TAB* 5 MG PO SCH (09:52)
[2019-11-24] MEDS ORDERED: Gentamicin ADULT (*) 250 MG in NS 0.9% 100 ML* 100 ML IVPB ONE (12:00)
[2019-11-24] MEDS: Lactated Ringers 1000 ML Bag* 1,000 ML IV SCH (12:11)
--- NOTE | 2019-11-24 12:25 | PN ---
Progress Note - Progress Note Date of Service: 11/24/19 Note: Surgery Progress note I saw and examined patient today and agree with José York's progress note. She is doing well, tolerating CLD. No nausea, emesis. She continues having loose BM with her bowel prep, which she is tolerating. She says it is starting to become more clear. On abdominal exam she is soft, NTND. Plan to complete bowel prep today. T&S, preop labs, NPO after midnight and OR tomorrow.
[2019-11-24] MEDS: PEG 3000 GI LAVAGE* 1 GALLON PO SCH (13:35)
[2019-11-24] MEDS: metroNIDAZOLE * 500 MG TABLET PO SCH ×3 (13:35→23:18)
[2019-11-24] MEDS: Neomycin TAB* 500 MG PO SCH ×3 (13:37→23:23)
[2019-11-24] MEDS: Potassium Chloride IV* 20 MEQ in Lactated Ringers 1000 ML Bag* 1,000 ML IVPB SCH (18:24)
[2019-11-24] MEDS: diPHENhydraMINE IV* 50 MG/ML 1 ml VIAL (BENADRYL) IV SCH (23:26)
[2019-11-25] MEDS: Potassium Chloride IV* 20 MEQ in Lactated Ringers 1000 ML Bag* 1,000 ML IVPB SCH ×2 (03:01→10:53)
[2019-11-25 06:00] LABS: Hematocrit 35 % (35-47); Hemoglobin 11.5 g/dL (12.0-16.0); Mean Corpuscular HGB Conc 33 g/dL (31-36); Mean Corpuscular Hemoglobin 26 pg (27-31); Mean Corpuscular Volume 81 fL (80-97); Mean Platelet Volume 7.7 fL (7.4-10.4); Platelet Count 249 10^3/uL (150-450); Red Blood Count 4.38 10^6 /uL (3.70-4.87); Red Cell Distribution Width 14 % (10-15); White Blood Count 6.6 10^3/uL (3.5-10.8)
[2019-11-25 06:05] LABS: Activated Partial Thrombo Time 39.4 seconds (26.0-38.0); INR 1.17 (0.82-1.09)
[2019-11-25] MEDS: Lactated Ringers 1000 ML Bag* 1,000 ML IV SCH ×2 (06:12→11:25)
[2019-11-25 06:14] LABS: BUN/Creatinine Ratio 6.7 (8-20); Calcium 8.7 mg/dL (8.6-10.3); EGFR African American 121.8 (>60); EGFR Non-African American 100.6 (>60); Potassium 3.8 mmol/L (3.5-5.0)
[2019-11-25] MEDS ORDERED: Buffered Lidocaine 1% SYRIN* 1 ML/SYRINGE INTRADERM ONE ×2 (07:00→10:54)
[2019-11-25] MEDS: amLODIPine TAB* 5 MG PO SCH (07:25)
[2019-11-25] MEDS: Atorvastatin* 20 MG TAB PO SCH (07:25)
[2019-11-25] MEDS ORDERED: HYDROmorphone INJ1* 1 MG/ML SYRINGE IV PRN (11:34)
[2019-11-25] MEDS ORDERED: Ondansetron INJ* 2 MG/ML VIAL IV PRN ×2 (11:34→17:40)
[2019-11-25] MEDS ORDERED: Naloxone* 0.4 MG/ML 1 ML VIAL IV PRN (11:34)
[2019-11-25] MEDS ORDERED: Bupivacaine 0.25% EPI 200,000* 30 ML SDV ONE ×2 (11:41→13:14)
[2019-11-25] MEDS ORDERED: HYDROmorphone INJ1* 1 MG/ML SYRINGE ONE (11:54)
[2019-11-25] MEDS ORDERED: Propofol* 10 MG/ML 20 ML BTL ONE (11:54)
[2019-11-25] MEDS ORDERED: Rocuronium* 10 MG/ML VIAL ONE ×3 (11:57→13:50)
[2019-11-25] MEDS ORDERED: Clindamycin 900 MG/D5W BAG(*) 900 MG/50 ML BAG IVPB ONE (12:00)
[2019-11-25] MEDS ORDERED: Ondansetron INJ* 2 MG/ML VIAL ONE (16:09)
[2019-11-25] MEDS ORDERED: Dexamethasone IV* 4 MG/ML 1 ML (4 MG) ONE (16:09)
[2019-11-25] MEDS ORDERED: Sugammadex * 200 MG/2 ML VIAL IV PUSH ONE (16:24)
--- NOTE | 2019-11-25 16:44 | BRIEFOPN ---
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
[2019-11-25] MEDS ORDERED: HYDROmorphone PCA* 20 MG/20 ML PCA.SYRING ONE (17:21)
[2019-11-25] MEDS ORDERED: Naloxone* 0.4 MG/ML 1 ML VIAL IV PUSH PRN (17:34)
[2019-11-25] MEDS ORDERED: HYDROmorphone PCA* 20 MG/20 ML PCA.SYRING PCA SCH (18:00)
[2019-11-25] MEDS ORDERED: Lactated Ringers 1000 ML Bag* 1,000 ML IV SCH (18:00)
[2019-11-25] MEDS: Heparin VIAL(*) 5000 UNITS/ML VIAL (FIVE THOUSAND) SUBCUT SCH (21:27)
[2019-11-25 21:48] LABS: Urine Appearance Clear; Urine Bilirubin Negative (Negative); Urine Blood 2+ (Negative); Urine Color Yellow; Urine Glucose Negative (Negative); Urine Ketones 1+ (Negative); Urine Nitrite Negative (Negative); Urine Protein Negative (Negative); Urine Specific Gravity 1.016 (1.010-1.030); Urine Urobilinogen Negative (Negative)
[2019-11-25 21:55] LABS: Urine Bacteria Absent (Absent); Urine Red Blood Cell 3+(>10/hpf) (Absent); Urine Squamous Epithelial Cell Present (Absent); Urine White Blood Cell Trace(0-5/hpf) (Absent)
--- NOTE | 2019-11-26 00:47 | OP ---
DATE OF OPERATION: 11/25/19 - ROOM #347 DATE OF : 55 SERVICE: General Surgery. SURGEON: Roopa Davenport MD ESTABLISHMENT GUIDE: Clarke Santiago MD ANESTHESIOLOGIST: Dr. Alberts. ANESTHESIA: General endotracheal anesthesia. PRE-OP DIAGNOSIS: Sigmoid stricture. 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 OPERATIVE PROCEDURE: Laparoscopic-assisted sigmoidectomy. ESTIMATED BLOOD LOSS: Approximately 50 cc. IV FLUIDS: 2.5 L. URINE OUTPUT: 500 cc. SPECIMEN: Sigmoid colon. INDICATIONS FOR SURGERY: Ms. Kurtz is a very pleasant 64-year-old with a history of hypertension and hyperlipidemia who presented to the emergency room in early November with a partial large bowel obstruction due to a sigmoid colon stricture. She had previously had an episode of diverticulitis in the summer and had since undergone two colonoscopies that both showed what appeared to be a benign diverticular stricture with no evidence of a mass. She improved after her initial admission in early November and was discharged home with plans for an elective sigmoidectomy; however, she returned this previous weekend with similar complaints of nausea and some vomiting and left lower quadrant abdominal pain. Her symptoms resolved, however, given that this was her second admission, the decision was to perform her sigmoidectomy on this admission given that she was scheduled for an elective surgery the following week. She understood that the risks included, but were not limited to bleeding, infection , injury to nearby structures such as the ureter, spleen, small bowel, and colon. She understood the alternatives and benefits and she wished to proceed. DESCRIPTION OF PROCEDURE: The patient was brought back to the operating room and placed on the operating table in a supine position. Sequential compression devices were placed on the bilateral lower extremities for DVT prophylaxis. Antibiotics with clindamycin and gentamicin were administered. General endotracheal anesthesia was induced. A Schreiber catheter was placed. A rectal exam was performed. The patient was placed in the modified lithotomy position. All pressure points were padded. A rectal exam was performed. No masses were palpated. There was small amount liquid stool in the rectal vault and the rectum was irrigated using diluted Betadine solution. After this was done, her abdomen was prepped and draped in normal sterile fashion, and then prior to beginning the procedure, a time-out was performed verifying the patient's name, date of and the procedure to be performed. Next, 0.25% Marcaine was infiltrated into the left upper quadrant. A small incision was made and a Veress needle was advanced through the abdominal wall. A saline drop test was performed confirming that Veress needle was intraperitoneal and then pneumoperitoneum was obtained to 15 mmHg. Once this was done, a small incision was made in the left upper quadrant and then the abdomen was entered using the Optiview technique. This was easily done given that insufflation had already been obtained. Once this was done, the laparoscope entered the abdominal cavity. There was no apparent injury that had been made upon entry. The Veress needle was seen in the left upper quadrant and again no apparent injury had been made with entry of the Veress needle; therefore, it was removed. Next, the abdominal cavity was visualized. An additional 5mm trocar was placed under direct visualization above the umbilicus after administering local anesthesia. The patient had had prior surgeries with right salpingo-oophorectomy and appendectomy as well as a ureteral surgery. She had several adhesions to the lower anterior abdominal wall and also above the stomach. These were taken down using the LigaSure. Next, the remaining trocars were placed. Another 5 mm trocar was placed in the right upper quadrant and additional 5 mm trocar was placed in the right lower quadrant. After this was done, attention was turned towards the sigmoid colon after placing the patient in a deep Trendelenburg position with the left side up. The sigmoid colon was noted to be extremely firm and adherent to the left pelvic inlet and the left lateral sidewall. This was clearly the area of the stricture that was apparent on the CT scan and on her colonoscopy. Unfortunately, there were also dense adhesions and what appeared to be a fistula to her uterus, her left ovary and fallopian tube. With great care, the plane between these structures and the sigmoid colon was bluntly laparoscopically; however, given the density of these adhesions and what appeared to be a fistula between the uterus and sigmoid colon , the decision was then made to place a hand port to assist with this dissection. The patient had a lower Pfannenstiel incision from her prior surgery. The decision was made to use the same incision. An approximately 6.5 cm incision was made through her old scar at the midline. The skin was divided down to the subcutaneous tissue which was then divided. The anterior fascia was identified and transversely divided until the rectus muscle was identified. The flaps were made on the inferior and superior rectus sheath and then the midline between the rectus muscles was identified and the peritoneum was divided with great care to avoid any injury to the bladder. After this was done , desufflation was then obtained and a hand port was placed into this opening. After the hand port was placed, I was able to use finger fracture to separate the structures between the fallopian tube, the uterus, and the sigmoid colon. Once these structures were free and the uterus could be retracted more anteriorly, there were also dense adhesions to the pelvic sidewall posteriorly. With great care, this was eventually finger fractured off as well with assistance of using electrocautery laparoscopically. There was also a small epiploic appendage that was adherent to the right-sided small bowel. This epiploic appendage was also divided with Ligasure. Once this was done, the sigmoid colon was far more mobile and the soft sigmoid colon and the rectum distally could be easily palpated and brought up from the pelvis. After this was done, attention was turned towards mobilizing the sigmoid colon. The white line of Toldt was identified, and from the lateral to medial approach, the sigmoid, descending colon, and the splenic flexure were all mobilized. The mesocolon was from the retroperitneum so that the colon could be very easily moved medially towards the midline. After this was done, attention was turned towards again the pelvic inlet. During the mobilization of the sigmoid colon off of the pelvic inlet and medially, the left ureter was identified as it traversed medially over the psoas muscle. Once this was identified, the decision was made then to remove the hand port and to perform the resection through the incision that had been made by the hand port. Desufflation was obtained. The soft proximal descending colon was able to be delivered through the wound protector and the decision was made then to make a proximal resection at this point given that this was well above where the strictured sigmoid colon was. It was very difficult to deliver the strictured dense phlegmon of sigmoid colon up to the wound, so the mesentery surrounding the proximal resection site was divided and a 60-mm linear cutting stapler on a blue load was used to staple across this proximal resection point. After this was done, the mesentery of the distal sigmoid colon was able to be divided using LigaSure. We stayed very close to the bowel given that the pathology had been determined preoperatively to be a benign diverticular stricture. The mesentery was taken down all the way to the proximal rectum. The sigmoid colon phlegmon was then able to be delivered up to the wound bed. The distal transection site was selected at the point where the teniae appeared to splay out at the top of the rectum. Once the distal transection site was selected, the mesorectum surrounding it was divided. An Endo GEORGE stapler which was a 60-mm santana load was used to staple across the distal rectum. The specimen was then removed and carried off the operating table. After this was done, attention was turned towards the proximal descending colon. On her CT scan, there was no evidence of diverticulosis on her more proximal colon. Given that she had already been well mobilized up to the splenic flexure and the descending colon clearly could come down into the pelvis very easily to meet the rectum, so no further mobilization had to be performed. Sterile towels were placed around the wound protector and the descending colon was brought through the wound protector. The staple line was excised and serial sizers were used to dilate the colotomy first using a 25, then a 28 and then a 31mm dilator. The 31 sizer fit in very nicely; therefore, the decision was made to use a 31-mm EEA stapler. This was opened up and the anvil was taken and placed into the open colotomy and was secured using a running 3-0 Prolene suture. The epiploica and fat surrounding the anvil was divided so that the anastomosis would be clear of this tissue. After this was done, the descending colon was oriented so that the mesentery was straight. The pelvis was irrigated. There was no newton or apparent bleeding at this point, so at this point, Dr. Santiago went to the bottom and dilated the rectum with serial dilators up to 31 mm. After this was done, he advanced the 31mm EEA stapler through the rectum and the spike was advanced through the middle and above the staple line. After this was done, the spike and anvil were and then the anastomosis was performed. After this was done, the EEA was removed from the rectum. The two donuts were examined and were intact. The proximal colon was clamped and then a leak test was performed after air was insufflated through the rectum after putting irrigating saline in the pelvis. There were no bubbles that were noted, and therefore, the air was desufflated from the rectum. Examination again of the pelvis and staple line showed that there was no apparent bleeding. The staple line appeared to be very secure, and at this point, the procedure was largely concluded. A EUGENIO drain was placed through the right lower quadrant 5 mm trocar site and placed around the anastomosis. It was secured using a prolene suture. Irrigation was again performed in the pelvis and the anastomosis was again checked. It was very well oriented. There was no twisting of the descending colon. After this was done, a count was performed confirming that the count for the laps was correct. Attention was turned towards closure. The peritoneum of the lower pfannenstiel incision was closed using a running 3-0 Vicryl suture. The rectus muscle was loosely reapproximated using two 3-0 Vicryl sutures. Hemostasis was also obtained in the wound bed. The fascia of the anterior abdominal wall was closed using two #1 looped PDS and then the skin was closed using interrupted greta. The laparoscopic incisions were closed using interrupted 4-0 Monocryl sutures. Sterile dressing was then placed, and after this, the patient's anesthesia was reversed and she was taken to the PACU in stable condition. At the end of the case, all counts were correct and I was present during the entirety of the case. [id number] #: [id number] LILLY
[2019-11-26 06:17] LABS: Hematocrit 34 % (35-47); Hemoglobin 11.2 g/dL (12.0-16.0); Mean Corpuscular HGB Conc 33 g/dL (31-36); Mean Corpuscular Hemoglobin 27 pg (27-31); Mean Corpuscular Volume 81 fL (80-97); Mean Platelet Volume 7.8 fL (7.4-10.4); Platelet Count 230 10^3/uL (150-450); Red Blood Count 4.18 10^6 /uL (3.70-4.87); Red Cell Distribution Width 14 % (10-15); White Blood Count 10.8 10^3/uL (3.5-10.8)
[2019-11-26 06:33] LABS: BUN/Creatinine Ratio 10.1 (8-20); Calcium 8.3 mg/dL (8.6-10.3); EGFR African American 103.6 (>60); EGFR Non-African American 85.7 (>60)
--- NOTE | 2019-11-26 08:07 | PN ---
Progress Note - Progress Note Date of Service: 11/26/19 Note: S: 64 yo F S/P laparoscopic assisted sigmoidectomy, POD#1. She is feeling well with some moderate abdominal pain. Denies, fever, chills, nausea, vomiting. No BM yet. Is eructating but no flatus yet. O: Vital Signs - 8 hr 11/26/19 11/26/19 11/26/19 01:06 03:26 03:27 Temperature 97.7 F 97.7 F Pulse Rate 78 73 Respiratory 12 12 17 Rate Blood Pressure 114/68 118/63 (mmHg) O2 Sat by Pulse 100 98 100 Oximetry 11/26/19 11/26/19 11/26/19 04:44 05:21 06:30 Temperature Pulse Rate Respiratory 14 14 Rate Blood Pressure (mmHg) O2 Sat by Pulse 100 98 98 Oximetry 11/26/19 11/26/19 07:00 07:47 Temperature 98.3 F Pulse Rate 82 Respiratory 18 18 Rate Blood Pressure 109/57 (mmHg) O2 Sat by Pulse 98 97 Oximetry Intake and Output Last 24 Hours 11/24/19 11/25/19 11/26/19 11/27/19 06:59 06:59 06:59 06:59 Intake Total 6780 4277 1 Output Total 3250 3250 1600 Balance 3530 1027 -1599 Weight 180 lb Intake: IV Fluids 2940 3147 LR 2940 1763 LR w/ 20 KCL 1384 Oral 3840 1130 1 Output: EUGENIO #1 180 Urine 3250 3250 800 [place] 620 Other: # Bowel Movements 0 0 PEX: General: Alert and in NAD or discomfort Integumentary: No rashes or jaundice HEENT: Oropharynx clear Heart: RRR Lungs: CTAB ABD: Soft, nondistended. Moderately tender around infraumbilical region and incisions, which are C/D/I with no erythema or warmth. Bowel sounds present. EUGENIO drain on right abdomen with serosanguineous drainage. Extremities: Calves soft and nontender. No edema. Distal pulses intact bilaterally. Assessment and plan: 64 yo F S/P laparoscopic assisted sigmoidectomy, POD#1. Clear liquid diet, scheduled toradol for pain, repeat am labs, d/c mckinney, ambulate and void on own. EUGENIO dressing was changed. Plan discussed with Dr. Davenport.
[2019-11-26] MEDS: amLODIPine TAB* 5 MG PO SCH (08:15)
[2019-11-26] MEDS: Atorvastatin* 20 MG TAB PO SCH (08:16)
[2019-11-26] MEDS: Heparin VIAL(*) 5000 UNITS/ML VIAL (FIVE THOUSAND) SUBCUT SCH ×2 (08:16→21:12)
[2019-11-26] MEDS: Ketorolac INJ* 30 MG/ML 1 ML VIAL IV SCH ×3 (08:19→22:38)
--- NOTE | 2019-11-26 09:47 | PN ---
Progress Note - Progress Note Date of Service: 11/26/19 Note: Surgery Progress Note S: Patient is doing well. She complains of 6/10 soreness from her lower pfannenstiel incision. She otherwise has no nausea, no emesis. O: Vital Signs - 24 hr 11/25/19 11/25/19 11/25/19 10:50 16:51 17:05 Temperature 98.2 F 96.8 F Pulse Rate 85 67 74 Respiratory 16 12 24 Rate Blood Pressure 137/90 98/55 115/69 (mmHg) O2 Sat by Pulse 97 100 97 Oximetry 11/25/19 11/25/19 11/25/19 17:45 18:02 18:35 Temperature 97.5 F 97.4 F Pulse Rate 66 67 53 Respiratory 16 16 12 Rate Blood Pressure 125/68 120/59 114/66 (mmHg) O2 Sat by Pulse 100 99 100 Oximetry 11/25/19 11/25/19 11/25/19 18:39 19:53 19:57 Temperature Pulse Rate Respiratory 16 12 12 Rate Blood Pressure (mmHg) O2 Sat by Pulse 98 100 Oximetry 11/25/19 11/25/19 11/25/19 21:03 21:35 23:01 Temperature 96.8 F 97.9 F Pulse Rate 74 67 Respiratory 12 16 10 Rate Blood Pressure 96/59 106/70 (mmHg) O2 Sat by Pulse 100 98 100 Oximetry 11/25/19 11/26/19 11/26/19 23:09 01:06 03:26 Temperature 97.7 F Pulse Rate 78 Respiratory 10 12 12 Rate Blood Pressure 114/68 (mmHg) O2 Sat by Pulse 98 100 98 Oximetry 11/26/19 11/26/19 11/26/19 03:27 04:44 05:21 Temperature 97.7 F Pulse Rate 73 Respiratory 17 14 Rate Blood Pressure 118/63 (mmHg) O2 Sat by Pulse 100 100 98 Oximetry 11/26/19 11/26/19 11/26/19 06:30 07:00 07:47 Temperature 98.3 F Pulse Rate 82 Respiratory 14 18 18 Rate Blood Pressure 109/57 (mmHg) O2 Sat by Pulse 98 98 97 Oximetry 11/26/19 08:00 Temperature Pulse Rate Respiratory 18 Rate Blood Pressure (mmHg) O2 Sat by Pulse Oximetry Laboratory Last Values WBC 10.8 10^3/uL (3.5-10.8) 11/26/19 06:02 RBC 4.18 10^6 /uL (3.70-4.87) 11/26/19 06:02 Hgb 11.2 g/dL (12.0-16.0) L 11/26/19 06:02 Hct 34 % (35-47) L 11/26/19 06:02 MCV 81 fL (80-97) 11/26/19 06:02 MCH 27 pg (27-31) 11/26/19 06:02 MCHC 33 g/dL (31-36) 11/26/19 06:02 RDW 14 % (10-15) 11/26/19 06:02 Plt Count 230 10^3/uL (150-450) 11/26/19 06:02 MPV 7.8 fL (7.4-10.4) 11/26/19 06:02 Neut % (Auto) 54.8 % 11/21/19 05:33 Lymph % (Auto) 34.4 % 11/21/19 05:33 [place] % (Auto) 8.0 % 11/21/19 05:33 Eos % (Auto) 2.1 % 11/21/19 05:33 Baso % (Auto) 0.7 % 11/21/19 05:33 Absolute Neuts (auto) 2.6 10^3/ul (1.5-7.7) 11/21/19 05:33 Absolute Lymphs (auto) 1.6 10^3/ul (1.0-4.8) 11/21/19 05:33 Absolute Monos (auto) 0.4 10^3/ul (0-0.8) 11/21/19 05:33 Absolute Eos (auto) 0.1 10^3/ul (0-0.6) 11/21/19 05:33 Absolute Basos (auto) 0.0 10^3/ul (0-0.2) 11/21/19 05:33 Absolute Nucleated RBC 0.0 10^3/ul 11/21/19 05:33 Nucleated RBC % 0.0 11/21/19 05:33 INR (Anticoag Therapy) 1.17 (0.82-1.09) H 11/25/19 05:17 APTT 39.4 seconds (26.0-38.0) H 11/25/19 05:17 Sodium 139 mmol/L (135-145) 11/26/19 06:02 Potassium 4.0 mmol/L (3.5-5.0) 11/26/19 06:02 Chloride 104 mmol/L (101-111) 11/26/19 06:02 Carbon Dioxide 28 mmol/L (22-32) 11/26/19 06:02 Anion Gap 7 mmol/L (2-11) 11/26/19 06:02 BUN 7 mg/dL (6-24) 11/26/19 06:02 Creatinine 0.69 mg/dL (0.51-0.95) 11/26/19 06:02 Est GFR ( Amer) 103.6 (>60) 11/26/19 06:02 Est GFR (Non-Af Amer) 85.7 (>60) 11/26/19 06:02 BUN/Creatinine Ratio 10.1 (8-20) 11/26/19 06:02 Glucose 104 mg/dL (70-100) H 11/26/19 06:02 Calcium 8.3 mg/dL (8.6-10.3) L 11/26/19 06:02 Total Bilirubin 0.40 mg/dL (0.2-1.0) 11/20/19 12:31 AST 18 U/L (13-39) 11/20/19 12:31 ALT 19 U/L (7-52) 11/20/19 12:31 Alkaline Phosphatase 76 U/L (34-104) 11/20/19 12:31 Total Protein 7.3 g/dL (6.4-8.9) 11/20/19 12:31 Albumin 4.4 g/dL (3.2-5.2) 11/20/19 12:31 Globulin 2.9 g/dL (2-4) 11/20/19 12:31 Albumin/Globulin Ratio 1.5 (1-3) 11/20/19 12:31 Lipase 19 U/L (11.0-82.0) 11/20/19 12:31 Urine Color Yellow 11/25/19 21:35 Urine Appearance Clear 11/25/19 21:35 Urine pH 5.0 (5-9) 11/25/19 21:35 Ur Specific [place] 1.016 (1.010-1.030) 11/25/19 21:35 Urine Protein Negative (Negative) 11/25/19 21:35 Urine Ketones 1+ (Negative) A 11/25/19 21:35 Urine Blood 2+ (Negative) A 11/25/19 21:35 Urine Nitrate Negative (Negative) 11/25/19 21:35 Urine Bilirubin Negative (Negative) 11/25/19 21:35 Urine Urobilinogen Negative (Negative) 11/25/19 21:35 Ur Leukocyte Esterase Trace (Negative) A 11/25/19 21:35 Urine WBC (Auto) Trace(0-5/hpf) (Absent) 11/25/19 21:35 Urine RBC (Auto) 3+(>10/hpf) (Absent) A 11/25/19 21:35 Ur Squamous Epith Cells Present (Absent) A 11/25/19 21:35 Urine Bacteria Absent (Absent) 11/25/19 21:35 Hyaline Casts Present (Absent) A 11/25/19 21:35 Urine Glucose Negative (Negative) 11/25/19 21:35 Urine Ascorbic Acid * (Negative) A 11/21/19 10:20 Blood Type O Negative 11/24/19 06:12 Antibody Screen Negative 11/24/19 06:12 Intake & Output 11/25/19 11/26/19 11/26/19 22:59 06:59 14:59 Intake Total 1 0 Output Total 700 100 100 Balance -699 -100 -100 Intake: Oral 1 0 Output: EUGENIO #1 180 [place] 520 100 100 Physical exam: Abdomen- soft, appropriately tender at lower incision. Lap incisions c/d/i, EUGENIO with s/s fluid A/P: 64 F POD 1 from lap assisted sigmoidectomy for a likely diverticular stricture with phlegmon and fistula to the uterus/ovary/fallopian tube. 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
[2019-11-26] MEDS: Lactated Ringers 1000 ML Bag* 1,000 ML IV SCH ×2 (10:39→22:03)
[2019-11-26] MEDS ORDERED: Calcium Carbonate CHEW TAB* 500 MG (TUMS) PO PRN (13:54)
[2019-11-26] MEDS ORDERED: HYDROmorphone INJ* 0.5 MG/0.5 ML SYRINGE IV SLOW PU PRN (14:44)
[2019-11-27] MEDS: Lactated Ringers 1000 ML Bag* 1,000 ML IV SCH ×2 (02:03→21:10)
[2019-11-27] MEDS: Ketorolac INJ* 30 MG/ML 1 ML VIAL IV SCH ×3 (06:09→22:09)
[2019-11-27] MEDS: Heparin VIAL(*) 5000 UNITS/ML VIAL (FIVE THOUSAND) SUBCUT SCH ×2 (08:57→21:10)
[2019-11-27] MEDS: amLODIPine TAB* 5 MG PO SCH (08:57)
[2019-11-27] MEDS: Atorvastatin* 20 MG TAB PO SCH (08:57)
[2019-11-27 09:11] LABS: Hematocrit 28 % (35-47); Hemoglobin 9.4 g/dL (12.0-16.0); Mean Corpuscular HGB Conc 33 g/dL (31-36); Mean Corpuscular Hemoglobin 27 pg (27-31); Mean Corpuscular Volume 81 fL (80-97); Mean Platelet Volume 8.1 fL (7.4-10.4); Platelet Count 181 10^3/uL (150-450); Red Blood Count 3.48 10^6 /uL (3.70-4.87); Red Cell Distribution Width 14 % (10-15)
[2019-11-27] MEDS ORDERED: Lactated Ringers 1000 ML Bag* 1,000 ML IV SCH (09:24)
[2019-11-27 09:30] LABS: BUN/Creatinine Ratio 12.5 (8-20); EGFR Non-African American 93.4 (>60); Potassium 3.7 mmol/L (3.5-5.0)
--- NOTE | 2019-11-27 10:06 | PN ---
Progress Note - Progress Note Date of Service: 11/27/19 Note: S: Feeling better, less pain than yesterday. Still moderate diffuse ABD pain when moving; during rest none. No nausea. Loose BMs and flatus. Tolerating oral liquids well. Ambulating. O: Vital Signs - 8 hr 11/27/19 11/27/19 11/27/19 04:11 07:28 08:00 Temperature 98.2 F 98.5 F Pulse Rate 92 84 Respiratory 16 18 18 Rate Blood Pressure 150/58 127/54 (mmHg) O2 Sat by Pulse 94 94 94 Oximetry Intake and Output Last 24 Hours 11/25/19 11/26/19 11/27/19 11/28/19 06:59 06:59 06:59 06:59 Intake Total 4277 1 990 120 Output Total 3250 1600 1500 Balance 1027 1599 -510 120 Weight 180 lb Intake: IV Fluids 3147 890 LR 1763 890 LR w/ 20 KCL 1384 Oral 1130 1 100 120 Output: EUGENIO #1 180 60 Urine 3250 800 1340 Schreiber 620 100 Other: # Bowel Movements 0 # Voids 2 2 PEX: General: Alert, in NAD Integumentary: No rashes, jaundice HEENT: Oropharynx clear Heart: RRR Lungs: CTAB, no WRR ABD: Soft, nondistended. Tender around incisions, which are C/D/I and no erythema or warmth. BS present. EUGENIO with approximately 40mL serosanguineous drainage. Extremities: Calves nontender. No edema. Distal pulses intact bilaterally. Assessment and plan: 64 yo F POD 2 from lap assisted sigmoidectomy, condition improving. Continue IVF, OOB and ambulation, incentive spirometry, SCDs, toradol for pain.
[2019-11-27] MEDS ORDERED: oxyCODONE/Acetamin 5/325 MG* TAB PO PRN (10:56)
--- NOTE | 2019-11-27 10:56 | PN ---
Progress Note - Progress Note Date of Service: 11/27/19 Note: Surgery Progress Note S: Patient feels better today than yesterday, mainly because her pain has improved. She has been having improved urine output. She ambulated 3 times yesterday. She had flatus and loose bowel movements starting yesterday afternoon. She has not required any additional narcotic medication. O: Vital Signs - 24 hr 11/26/19 11/26/19 11/26/19 11:00 11:43 13:00 Temperature 98.6 F Pulse Rate 87 Respiratory 18 18 18 Rate Blood Pressure 112/51 (mmHg) O2 Sat by Pulse 99 96 99 Oximetry 11/26/19 11/26/19 11/26/19 16:00 20:35 21:15 Temperature 99.4 F 99.3 F Pulse Rate 79 88 Respiratory 16 16 16 Rate Blood Pressure 109/47 129/54 (mmHg) O2 Sat by Pulse 95 96 Oximetry 11/27/19 11/27/19 11/27/19 00:01 04:11 07:28 Temperature 98.6 F 98.2 F 98.5 F Pulse Rate 75 92 84 Respiratory 16 16 18 Rate Blood Pressure 117/54 150/58 127/54 (mmHg) O2 Sat by Pulse 94 94 94 Oximetry 11/27/19 08:00 Temperature Pulse Rate Respiratory 18 Rate Blood Pressure (mmHg) O2 Sat by Pulse 94 Oximetry Intake & Output 11/26/19 11/27/19 11/27/19 22:59 06:59 14:59 Intake Total 100 0 1104 Output Total 230 1170 Balance -130 -1170 1104 Intake: IV Fluids 984 LR 984 Oral 100 0 120 Output: EUGENIO #1 40 20 Urine 190 1150 Other: # Voids 2 Laboratory Results - last 24 hr 11/27/19 11/27/19 08:57 08:57 WBC 7.0 RBC 3.48 L Hgb 9.4 L Hct 28 L MCV 81 MCH 27 MCHC 33 RDW 14 Plt Count 181 MPV 8.1 Sodium 138 Potassium 3.7 Chloride 106 Carbon Dioxide 24 Anion Gap 8 BUN 8 Creatinine 0.64 Est GFR ( Amer) 113.0 Est GFR (Non-Af Amer) 93.4 BUN/Creatinine Ratio 12.5 Glucose 76 Calcium 8.0 L Physical exam: Abdomen- soft, tender over lower abdominal incision. Incisions c/d/i. EUGENIO with sero sanguinous fluid A/P: 64 F POD 2 from lap assisted sigmoidectomy, doing well. - Continue IVF @ 100, continue CLD. Will likely advance to full liquids tomorrow if patient continues to have bowel function and can tolerate CLD. - Toradol around the clock, percocet/dilaudid PRN for breakthrough pain control - OOB and ambulate - HSQ for ppx
[2019-11-28] MEDS: Ketorolac INJ* 30 MG/ML 1 ML VIAL IV SCH (06:27)
[2019-11-28 07:25] LABS: Hematocrit 28 % (35-47); Hemoglobin 9.4 g/dL (12.0-16.0); Mean Corpuscular HGB Conc 34 g/dL (31-36); Mean Corpuscular Hemoglobin 27 pg (27-31); Mean Corpuscular Volume 80 fL (80-97); Mean Platelet Volume 8.3 fL (7.4-10.4); Platelet Count 186 10^3/uL (150-450); Red Blood Count 3.48 10^6 /uL (3.70-4.87); Red Cell Distribution Width 14 % (10-15); White Blood Count 4.9 10^3/uL (3.5-10.8)
[2019-11-28 07:38] LABS: BUN/Creatinine Ratio 7.5 (8-20); Calcium 8.2 mg/dL (8.6-10.3); EGFR African American 140.5 (>60); EGFR Non-African American 116.1 (>60); Potassium 3.3 mmol/L (3.5-5.0)
[2019-11-28] MEDS: Atorvastatin* 20 MG TAB PO SCH (09:24)
[2019-11-28] MEDS: Heparin VIAL(*) 5000 UNITS/ML VIAL (FIVE THOUSAND) SUBCUT SCH ×2 (09:24→21:18)
[2019-11-28] MEDS: amLODIPine TAB* 5 MG PO SCH (09:24)
[2019-11-28] MEDS: Lactated Ringers 1000 ML Bag* 1,000 ML IV SCH (10:23)
[2019-11-28] MEDS ORDERED: oxyCODONE/Acetamin 5/325 MG* TAB PO PRN (11:17)
[2019-11-28] MEDS ORDERED: Potassium Chlor TAB* 20 MEQ TAB.ER PO ONE (11:18)
[2019-11-28] MEDS ORDERED: Lactated Ringers 1000 ML Bag* 1,000 ML IV SCH (11:19)
[2019-11-28] MEDS: Ketorolac INJ* 15 MG/ML 1 ML VIAL IV PUSH PRN ×2 (13:04→21:18)
--- NOTE | 2019-11-28 13:42 | PN ---
Progress Note - Progress Note Date of Service: 11/28/19 Note: Surgery Progress Note S: Patient is doing well. Her pain improves everyday. She has been ambulating. She continues to pas flatus and liquid BM. She tolerated full liquid diet yesterday. O: Vital Signs: Temp Pulse Resp BP Pulse Ox 98.5 F 77 14 131/64 93 11/28/19 11:58 11/28/19 11:58 11/28/19 11:58 11/28/19 11:58 11/28/19 11:58 Laboratory Results - last 24 hr 11/28/19 11/28/19 07:00 07:00 WBC 4.9 RBC 3.48 L Hgb 9.4 L Hct 28 L MCV 80 MCH 27 MCHC 34 RDW 14 Plt Count 186 MPV 8.3 Sodium 139 Potassium 3.3 L Chloride 104 Carbon Dioxide 29 Anion Gap 6 BUN 4 L Creatinine 0.53 Est GFR ( Amer) 140.5 Est GFR (Non-Af Amer) 116.1 BUN/Creatinine Ratio 7.5 L Glucose 100 Calcium 8.2 L Intake & Output 11/27/19 11/28/19 11/28/19 22:59 06:59 14:59 Intake Total 907 093 8034 Output Total 1410 2140 1150 Balance -570 -1540 -50 Intake: IV Fluids 600 980 LR 600 980 Oral 240 600 120 Output: EUGENIO #1 10 40 Urine 1400 2100 1150 Other: Date of Last Bowel 11/28/2019 Movement # Bowel Movements 1 1 Estimated Stool Amount Small Small Physical exam: Abdomen- soft, minimally tender around pfannenstiel incision, lap incisions c/d/ i, EUGENIO s/s fluid, non distended A/P: 64 F POD 3 from lap assisted sigmoidectomy for divertiular stricture, doing well. - Soft diet today - Decrease IVF to 50cc/hr. Plan to hep lock tomorrow - DC toradol around the clock. Toradol, percocet and dilaudid only as needed. Patient is not requiring much pain medications - HSQ for PPX - Continue OOB and ambulate - Likely DC EUGENIO and dc home Saturday
[2019-11-29] MEDS: Ketorolac INJ* 15 MG/ML 1 ML VIAL IV PUSH PRN (05:55)
[2019-11-29] MEDS: Atorvastatin* 20 MG TAB PO SCH (07:52)
[2019-11-29] MEDS: Heparin VIAL(*) 5000 UNITS/ML VIAL (FIVE THOUSAND) SUBCUT SCH ×2 (07:52→21:28)
[2019-11-29] MEDS: amLODIPine TAB* 5 MG PO SCH (07:52)
[2019-11-29 08:19] LABS: Hematocrit 30 % (35-47); Hemoglobin 10.1 g/dL (12.0-16.0); Mean Corpuscular HGB Conc 33 g/dL (31-36); Mean Corpuscular Hemoglobin 27 pg (27-31); Mean Corpuscular Volume 80 fL (80-97); Mean Platelet Volume 8.2 fL (7.4-10.4); Platelet Count 221 10^3/uL (150-450); Red Cell Distribution Width 14 % (10-15); White Blood Count 5.1 10^3/uL (3.5-10.8)
[2019-11-29 08:27] LABS: BUN/Creatinine Ratio 5.4 (8-20); Calcium 8.6 mg/dL (8.6-10.3); EGFR African American 131.9 (>60); Potassium 3.5 mmol/L (3.5-5.0)
--- NOTE | 2019-11-29 10:15 | PN ---
Progress Note - Progress Note Date of Service: 11/29/19 SOAP: Subjective: Doing well-tolerating po Had small loose BM's yesterday Pain controlled Objective: Temp Pulse Resp BP Pulse Ox 98.4 F 74 16 127/74 93 11/29/19 07:57 11/29/19 07:57 11/29/19 07:57 11/29/19 07:57 11/29/19 07:57 Intake & Output 11/27/19 11/28/19 11/29/19 11/30/19 06:59 06:59 06:59 06:59 Intake Total 990 3261 3370 Output Total 1500 4600 3800 500 Balance -510 -5398 -430 -500 Intake: IV Fluids 890 2041 1930 LR 890 2041 1930 Oral 100 1220 1440 Output: EUGENIO #1 60 100 50 Urine 1340 4500 3750 500 Schreiber 100 Other: Date of Last Bowel 11/29/2019 Movement # Bowel Movements 1 1 Estimated Stool Amount Small Small # Voids 2 2 1 PEX: Comfortable Lungs are clear Cor is RRR Abd is soft and non-distended. Few bowel sounds present, normoactive Incisions CDI EUGENIO small amount of SG fluid Ext without edema Laboratory Results - last 24 hr 11/29/19 11/29/19 08:03 08:03 WBC 5.1 RBC 3.80 Hgb 10.1 L Hct 30 L MCV 80 MCH 27 MCHC 33 RDW 14 Plt Count 221 MPV 8.2 Sodium 138 Potassium 3.5 Chloride 105 Carbon Dioxide 28 Anion Gap 5 BUN 3 L Creatinine 0.56 Est GFR ( Amer) 131.9 Est GFR (Non-Af Amer) 109.0 BUN/Creatinine Ratio 5.4 L Glucose 99 Calcium 8.6 Assessment: POD# 4 s/p laparoscopic sigmoid colon resection for diverticular disease. Ileus-resolving Plan: Discussed pathology result with patient Soft diet D/C IVF Increase activity Subq heparin Plan D/C tomorrow 11/30
[2019-11-30 05:54] LABS: Hematocrit 31 % (35-47); Hemoglobin 10.2 g/dL (12.0-16.0); Mean Corpuscular HGB Conc 33 g/dL (31-36); Mean Corpuscular Hemoglobin 27 pg (27-31); Mean Corpuscular Volume 80 fL (80-97); Platelet Count 250 10^3/uL (150-450); Red Blood Count 3.87 10^6 /uL (3.70-4.87); Red Cell Distribution Width 14 % (10-15); White Blood Count 5.1 10^3/uL (3.5-10.8)
[2019-11-30 06:10] LABS: BUN/Creatinine Ratio 8.3 (8-20); Calcium 8.7 mg/dL (8.6-10.3); EGFR African American 121.8 (>60); EGFR Non-African American 100.6 (>60); Potassium 3.2 mmol/L (3.5-5.0)
[2019-11-30] MEDS ORDERED: Potassium Chlor TAB* 20 MEQ TAB.ER PO ONE (09:43)
[2019-11-30] MEDS: Heparin VIAL(*) 5000 UNITS/ML VIAL (FIVE THOUSAND) SUBCUT SCH (09:56)
[2019-11-30] MEDS: amLODIPine TAB* 5 MG PO SCH (09:56)
[2019-11-30] MEDS: Atorvastatin* 20 MG TAB PO SCH (09:56)
--- NOTE | 2019-11-30 10:47 | PN ---
Progress Note - Progress Note Date of Service: 11/30/19 SOAP: Subjective:slept poorly,up to br with loose stools;hoping to go home;eating solids [] Objective: Vital Signs Temp 98.3 F 11/30/19 08:21 Pulse 76 11/30/19 08:21 Resp 16 11/30/19 08:21 BP 144/76 11/30/19 08:21 Pulse Ox 97 11/30/19 08:21 Intake & Output 11/29/19 11/30/19 11/30/19 18:59 06:59 18:59 Intake Total 480 900 120 Output Total 820 775 Balance -340 125 120 Intake: Oral 480 900 120 Output: EUGENIO #1 20 25 Urine 800 750 Other: Date of Last Bowel 11/29/2019 Movement # Bowel Movements 1 Estimated Stool Amount Medium lungs:clear bilat;heart:RRR;abd:+bs,soft;nondistended,nontender;EUGENIO serosang, removed with ease;greta intact and clean suprapubic incision,no infection;all abd incisions C/D/I with skin glue,no infection [] Assessment:POD#5 s/p lap assisted sigmoid colectomy,stable [] Plan:Discharge home today,instructions reviewed,office visit 12/07/19 []
[2019-11-30 11:40] VITALS: BP 148/72
--- NOTE | 2019-11-30 21:28 | DS ---
DISCHARGE SUMMARY: DATE OF ADMISSION: 11/20/19 DATE OF DISCHARGE: 11/30/19 ADMISSION DIAGNOSIS: Partial large bowel obstruction. POSTOPERATIVE DIAGNOSES: Partial large bowel obstruction due to benign diverticular stricture. OPERATION TITLE: Laparoscopic assisted sigmoidectomy on 11/25/19. ADMITTING SERVICE: General surgery. ATTENDING SURGEON: Roopa Davenport MD HOSPITAL COURSE: Ms. Kurtz is a very pleasant 64-year-old female with a history of hypertension who had presented on 11/20/19 with recurrent symptoms of vomiting, nausea, and abdominal pain from a benign diverticular stricture. She had been scheduled for an elective surgery on 12/03/19; however, given that she presented to the emergency room with a symptomatic partial large bowel obstruction, she was admitted and underwent a monitored bowel prep for about 2 days to ensure that she could tolerate this. She tolerated this very well and on 11/25/19 she underwent a laparoscopic-assisted sigmoidectomy. 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 She tolerated the surgery very well and her postoperative course was uneventful. She was advanced from clear liquids to a soft diet and on the day of discharge on 11/30/19, postoperative day 5, she was doing very well. She was ambulating on her own. She was having excellent urine output. She was tolerating a soft diet. She was having bowel function in the form of a flatus and loose bowel movements and her pain was very well controlled. She required only occasional oral pain medications. She was therefore determined to be an appropriate candidate for discharge. Discharge instructions were reviewed with the patient. DISCHARGE PHYSICAL EXAMINATION: Vital Signs: Temperature 98.5, pulse is 76, respiratory rate is 16, O2 sat 97% O2 on room air, blood pressure is 148/72. General: An older woman lying very comfortably in bed, conversing easily, in no apparent distress. Abdomen is soft, minimally tender in the lower abdomen; nondistended. Laparoscopic incisions are clean, dry, and intact. Her right- sided EUGENIO drain was removed. MEDICATIONS ON DISCHARGE: The patient is told to resume her home medications. FOLLOWUP: The patient was told to follow up with Dr. Davenport and she was given a postoperative appointment for the following week on 12/07/19 at 2:45 p.m. DISPOSITION: To home. CONDITION: Good. DISCHARGE INSTRUCTIONS: The patient was given a handout of discharge instructions and this was reviewed with both the nurse and Keiry Becker NP prior to discharge. [id number]/[facility] #: [id number] LILLY
== END 2019-11-30 13:32 | disposition home or self-care (01) | DRG 221 ==
LOC: ED 11:52 → SSU 15:35
PROVIDERS: ADMIT Surgery; ATTEND Surgery
PROC: 0DNW4ZZ Release Peritoneum, Percutaneous Endoscopic Approach (ICD-10-PCS; 2019-11-25)
PROC: 0DTN0ZZ Resection of Sigmoid Colon, Open Approach (ICD-10-PCS; principal; 2019-11-25 11:30)
DX: K57.30 Diverticulosis of large intestine without perforation or abscess without bleeding (principal); K56.51 Intestinal adhesions [bands], with partial obstruction; E78.00 Pure hypercholesterolemia, unspecified; I10 Essential (primary) hypertension; E78.5 Hyperlipidemia, unspecified; Z88.0 Allergy status to penicillin
CPT/HCPCS: 36415; 74019; 80048; 80053; 81003; 81015; 83690; 85025; 85027; 85610; 85730; 86850; 86900; 86901; 87086; 88307; 96374; 99284; A9270-GY; C1776; J1100; J1170; J1200; J1580; J1644; J1885; J2405; J2704; J3480

== ENCOUNTER 2020-10-14 11:50 | Inpatient (IN) ==
[2020-10-14] MEDS ORDERED: Al Hydrox/Mg Hydrox/Simet LIQ 30 ML UDC PO ONE (15:08)
[2020-10-14 16:23] LABS: Albumin/Globulin Ratio 1.3 (1-3); BUN/Creatinine Ratio 15.9 (8-20); C Reactive Protein 191.75 mg/L (<8.01); Calcium 8.9 mg/dL (8.6-10.3); EGFR African American 84.9 (>60); EGFR Non-African American 70.2 (>60); Globulin 3.1 g/dL (2-4); Magnesium 1.8 mg/dL (1.9-2.7); Potassium 3.6 mmol/L (3.5-5.0); Total Bilirubin 0.5 mg/dL (0.2-1.0); Total Protein 7.1 g/dL (6.4-8.9)
[2020-10-14] MEDS ORDERED: Iohexol 300 (CONTRAST) 10 ML SDV IV ONE (16:44)
[2020-10-14 16:51] LABS: Hematocrit 37 % (35-47); Hemoglobin 12.3 g/dL (12.0-16.0); Mean Corpuscular HGB Conc 33 g/dL (31-36); Mean Corpuscular Hemoglobin 26 pg (27-31); Mean Corpuscular Volume 79 fL (80-97); Red Blood Count 4.64 10^6 /uL (3.70-4.87); Red Cell Distribution Width 14 % (10-15)
[2020-10-14] MEDS ORDERED: Iohexol 350 (CONTRAST) 500 ML MDV IV ONE ×2 (16:51→16:53)
[2020-10-14 17:32] LABS: ABS Monocytes 0.7 10^3/ul (0-0.8); Nucleated Red Blood Cells % 0.2; Platelet Count Platelets clumped. 10^3/uL (150-450); White Blood Count 11.7 10^3/uL (3.5-10.8)
[2020-10-14 18:21] LABS: Troponin I 0.01 ng/mL (<0.03)
[2020-10-14 19:19] LABS: INR 1.12 (0.82-1.09)
[2020-10-14 19:20] LABS: Activated Partial Thrombo Time 31.4 seconds (26.0-38.0)
[2020-10-14] MEDS ORDERED: NS 0.9% 1000 ml BAG 1,000 ML IV SCH (21:30)
[2020-10-14] MEDS ORDERED: Remdesivir 5 MG/ML LIQ IV Vial 200 MG in NS 0.9% 250 ml 210 ML IV ONE (22:00)
[2020-10-14] MEDS ORDERED: Enoxaparin 40 MG/0.4 ML SYR SUBCUT SCH (22:00)
[2020-10-14 22:14] LABS: Ferritin 384.5 ng/mL (11-307)
[2020-10-15 07:03] LABS: Hematocrit 35 % (35-47); Hemoglobin 11.4 g/dL (12.0-16.0); Mean Corpuscular HGB Conc 33 g/dL (31-36); Mean Corpuscular Hemoglobin 26 pg (27-31); Mean Corpuscular Volume 80 fL (80-97); Mean Platelet Volume 8.1 fL (7.4-10.4); Platelet Count 188 10^3/uL (150-450); Red Blood Count 4.36 10^6 /uL (3.70-4.87); Red Cell Distribution Width 14 % (10-15); White Blood Count 5.1 10^3/uL (3.5-10.8)
[2020-10-15 07:19] LABS: BUN/Creatinine Ratio 18.7 (8-20); C Reactive Protein 215.31 mg/L (<8.01); Calcium 8.6 mg/dL (8.6-10.3); EGFR African American 94.1 (>60); EGFR Non-African American 77.8 (>60); Potassium 3.7 mmol/L (3.5-5.0)
[2020-10-15 09:20] LABS: Albumin 3.5 g/dL (3.2-5.2); Albumin/Globulin Ratio 1.2 (1-3); Indirect Bilirubin 0.3 mg/dL (0.3-1.0); Total Bilirubin 0.4 mg/dL (0.2-1.0); Total Protein 6.5 g/dL (6.4-8.9)
[2020-10-15] MEDS: Enoxaparin 60 MG/0.6 ML SYR SUBCUT SCH ×2 (09:20→22:12)
[2020-10-15] MEDS: Multivitamins/Minerals TAB PO SCH (09:21)
[2020-10-15 13:41] LABS: Urine Appearance Cloudy; Urine Bilirubin Negative (Negative); Urine Blood Negative (Negative); Urine Color Yellow; Urine Glucose Negative (Negative); Urine Ketones 1+ (Negative); Urine Nitrite Negative (Negative); Urine Protein 1+(30 mg/dL) (Negative); Urine Specific Gravity 1.021 (1.010-1.030); Urine Urobilinogen Negative (Negative)
[2020-10-15 13:44] LABS: Urine Bacteria Absent (Absent); Urine Red Blood Cell Trace(0-2/hpf) (Absent); Urine Squamous Epithelial Cell Present (Absent); Urine White Blood Cell 1+(6-10/hpf) (Absent)
[2020-10-15] MEDS ORDERED: Remdesivir 5 MG/ML LIQ IV Vial 100 MG in NS 0.9% 250 ml 230 ML IV SCH (22:00)
[2020-10-16 07:36] LABS: ABS Lymphocytes 0.8 10^3/ul (1.0-4.8); ABS Monocytes 0.4 10^3/ul (0-0.8); ABS Neutrophils 8.6 10^3/ul (1.5-7.7); Hematocrit 33 % (35-47); Mean Corpuscular HGB Conc 34 g/dL (31-36); Mean Corpuscular Hemoglobin 27 pg (27-31); Mean Corpuscular Volume 80 fL (80-97); Mean Platelet Volume 7.8 fL (7.4-10.4); Platelet Count 233 10^3/uL (150-450); Red Blood Count 4.12 10^6 /uL (3.70-4.87); Red Cell Distribution Width 14 % (10-15); White Blood Count 9.8 10^3/uL (3.5-10.8)
[2020-10-16 07:57] LABS: ALT 58 U/L (7-52); AST 58 U/L (13-39); Albumin 3.1 g/dL (3.2-5.2); Albumin/Globulin Ratio 1.1 (1-3); Alkaline Phosphatase 61 U/L (34-104); Anion Gap 7 mmol/L (2-11); BUN/Creatinine Ratio 28.6 (8-20); Blood Urea Nitrogen 20 mg/dL (6-24); C Reactive Protein 153.29 mg/L (<8.01); CO2 Carbon Dioxide 22 mmol/L (22-32); Calcium 8.9 mg/dL (8.6-10.3); Chloride 106 mmol/L (101-111); EGFR African American 101.9 (>60); EGFR Non-African American 84.2 (>60); Globulin 2.8 g/dL (2-4); Glucose 304 mg/dL (70-100); Potassium 3.5 mmol/L (3.5-5.0); Sodium 135 mmol/L (135-145); Total Protein 5.9 g/dL (6.4-8.9)
[2020-10-16] MEDS ORDERED: Dextrose 50% Syringe 50 ml 25 GM/50 ML SYRINGE IV PUSH PRN (09:14)
[2020-10-16] MEDS: Enoxaparin 60 MG/0.6 ML SYR SUBCUT SCH ×2 (10:44→21:38)
[2020-10-16] MEDS: Multivitamins/Minerals TAB PO SCH (10:44)
[2020-10-17 06:37] LABS: Albumin 3.2 g/dL (3.2-5.2); Albumin/Globulin Ratio 1.1 (1-3); Globulin 2.8 g/dL (2-4); Total Bilirubin 0.2 mg/dL (0.2-1.0)
[2020-10-17 06:48] LABS: Indirect Bilirubin 0.1 mg/dL (0.3-1.0)
[2020-10-17] MEDS: Multivitamins/Minerals TAB PO SCH (09:06)
[2020-10-17] MEDS: Enoxaparin 60 MG/0.6 ML SYR SUBCUT SCH (09:07)
[2020-10-17 11:22] VITALS: BP 119/65
== END 2020-10-17 16:40 | disposition home or self-care (01) | DRG 137 ==
LOC: ED 11:50 → MED 21:19
PROVIDERS: ADMIT Hospitalist; ATTEND Internal Medicine